=== PATIENT | female | born 1940 | race Caucasian/White ===

== ENCOUNTER → 2018-01-30 14:46 | Outpatient (CLI) | payer OTHER, SELFPAY ==
--- NOTE | 2018-01-30 14:50 | DI.RAD.S_ITS ---
PROCEDURE: XR HAND LT MIN 3V INDICATIONS: arthralgia TECHNIQUE: 3 views of the hand(s) acquired. COMPARISON: [facility], , HAND 3V LEFT, 05/12/2008, 10:20. FINDINGS: Bones: No fractures or dislocations. Subchondral cysts involve the base of the first metacarpals. Carpal bones are normally aligned. No suspicious bony lesions. Trapezium has been surgically resected. Multilevel joint narrowing present with parity or osteophyte formation, most notably involving the second third MCP joints where there is mild soft tissue swelling. No definitive bony erosions. Soft tissues: Chondrocalcinosis. IMPRESSION: Multilevel joint degeneration, most notably involving the second and third MCP joints where there is adjacent soft tissue swelling. Prior resection of the trapezium. Chondrocalcinosis. Differential diagnosis includes but is not limited to hemochromatosis, hyperparathyroidism and CPPD. Dictated by: Prabhakar SEALS Interpreted: Olinda Ch MD on 01/30/2018 at 15:08 Approved by: Olinda Ch M.D. on 01/30/2018 at 16:55
== END ==
PROVIDERS: Family Provider Internal Medicine; PCP Internal Medicine; Visit Provider Internal Medicine
DX: M19.042 Primary osteoarthritis, left hand (principal); M11.242 Other chondrocalcinosis, left hand; M25.542 Pain in joints of left hand
CPT/HCPCS: 73130

== ENCOUNTER → 2018-02-28 14:08 | Outpatient (CLI) | payer OTHER, SELFPAY ==
[2018-02-28 15:06] LABS: Alanine Aminotransferase 25 IU/L (9-52); Albumin 3.9 g/dL (3.5-5.0); Albumin Globulin Ratio 1.3 (1.0-2.8); Alkaline Phosphatase 84 U/L (38-126); Aspartate Aminotransferase 23 IU/L (14-36); BUN Creatinine Ratio 24.5 (6-22); Bilirubin Total 0.5 mg/dL (0.2-1.3); Blood Urea Nitrogen 27 mg/dL (7-17); C-Reactive Protein Quant 7.1 mg/dL (<1.0); Calcium 9.2 mg/dL (8.4-10.2); Carbon Dioxide 28 mmol/L (22-32); Chloride 100 mmol/L (98-107); Estimated Glomerular Filt Rate 47.9 mL/min (>60); Globulin 3.1 g/dL (1.7-4.1); Glucose 116 mg/dL (80-110); HEMOLYSIS < 15 (0-50); Potassium 3.1 mmol/L (3.4-5.1); Sodium 142 mmol/L (137-145)
[2018-02-28 15:12] LABS: Erythrocyte Sedimentation Rate 60 MM/HR (0-20)
== END ==
PROVIDERS: PCP Internal Medicine; Visit Provider Internal Medicine
DX: R53.1 Weakness (principal)
CPT/HCPCS: 36415; 80053; 85651; 86140

== ENCOUNTER → 2018-07-18 14:08 | Outpatient (CLI) | payer OTHER, SELFPAY ==
[2018-07-18 14:35] LABS: Add Manual Diff / Slide Review NO; Eosinophils Percent Auto 4.5 % (2-4); Hematocrit 36.6 % (36-46); Hemoglobin 12.3 g/dL (12.0-16.0); Lymphocytes Percent Auto 22.5 % (25-40); Mean Corpuscular HGB Conc 33.7 % (30-36); Mean Corpuscular Hemoglobin 31.5 PG (26-34); Mean Corpuscular Volume 93.5 fL (80-100); Monocytes Percent Auto 7.6 % (3-14); Neutrophils Absolute Auto 4500 /uL (3000-5900); Neutrophils Percent Auto 64.4 % (50-75); Platelet Count 273 X10^3/uL (150-400); Red Blood Cell Count 3.91 X10^6/uL (4.0-5.2); Red Cell Distribution Width 13.8 % (11.6-14.8); White Blood Cell Count 6.9 X10^3/uL (4.5-11.0)
[2018-07-18 14:58] LABS: Alanine Aminotransferase 26 IU/L (9-52); Albumin 4.2 g/dL (3.5-5.0); Albumin Globulin Ratio 1.2 (1.0-2.8); Alkaline Phosphatase 91 U/L (38-126); Aspartate Aminotransferase 29 IU/L (14-36); BUN Creatinine Ratio 26.7 (6-22); Bilirubin Total 0.4 mg/dL (0.2-1.3); Blood Urea Nitrogen 24 mg/dL (7-17); Calcium 9.2 mg/dL (8.4-10.2); Carbon Dioxide 27 mmol/L (22-32); Estimated Glomerular Filt Rate > 60.0 mL/min (>60); Globulin 3.4 g/dL (1.7-4.1); Glucose 95 mg/dL (80-110); HEMOLYSIS < 15 (0-50); Total Protein 7.6 g/dL (6.3-8.2)
[2018-07-18 15:21] LABS: Chloride 105 mmol/L (98-107); Potassium 4.5 mmol/L (3.4-5.1); Sodium 142 mmol/L (137-145)
[2018-07-18 15:46] LABS: TSH w/ Reflex to FT4 1.77 uIU/mL (0.47-4.68)
== END ==
PROVIDERS: PCP Internal Medicine; Visit Provider Internal Medicine
DX: I50.9 Heart failure, unspecified (principal); I51.9 Heart disease, unspecified; I10 Essential (primary) hypertension
CPT/HCPCS: 36415; 80053; 83880; 84443; 85025

== ENCOUNTER → 2018-07-28 13:12 | Outpatient (CLI) | payer OTHER, SELFPAY ==
--- NOTE | 2018-07-28 14:53 | PM.TREADMILL ---
Cardiac Stress Test Report Referral & Results Date Patient Seen: 07/28/18 Requesting provider: Hugo Merchant Indication: New congestive heart failure Rest ECG: Unremarkable Procedure Note: After both written and verbal informed consent the patient had an IV started by the diagnostic imaging RN and then was hooked up to the treadmill monitoring system. The patient was placed on the treadmill at 1 mile an hour with no elevation and was then injected with the Adri scan material. The Cardiolite was then immediately administered. The patient spent an additional 2-3 minutes on the treadmill before being returned to the [facility] in the supine position. The patient had a normal response to all infused materials. Patient had perceived dyspnea with minimal activity although was not visibly short of breath Impression: Normal response to materials. Perfusion imaging will be reported separately Please note: Actual ECG tracings can be found in the PACS system.
--- NOTE | 2018-07-29 14:57 | DI.NM.S_ITS ---
DATE OF SERVICE: 07/28/2018 PROCEDURE: Pharmacological perfusion study. INDICATIONS: Hypertension, shortness of breath, CHF.. RADIOPHARMACEUTICAL: 24.8 mCi technetium-99m Myoview IV was injected at stress and 25.7 mCi technetium-99m Myoview IV was injected at rest. CARDIAC STRESS: Patient underwent IV Lexiscan perfusion study under the supervision of an attending staff as per standard IV Lexiscan protocol. She remained hemodynamically stable. Baseline EKG revealed sinus rhythm. Stress EKG did not reveal any obvious inducible ischemic changes. No significant arrhythmias. No significant symptoms were reported. RAW DATA: There was increased breast shadow . GATED STUDY: Resting LV ejection fraction 72%. Stress LV ejection fraction 78%. No obvious wall motion abnormalities. There is no transient ischemic dilatation. TID ratio is 0.83, which is within normal limits. Resting LV end- diastolic volume is 89 mL. Lung/heart ratio is 0.14, which is within normal limits. MYOCARDIAL PERFUSION SCAN: In resting supine images, there was minimally decreased perfusion of anterior wall. However, stress supine and stress prone images revealed normal myocardial perfusion. I don't see any convincing ischemia infarction. CONCLUSION: I will call this study normal myocardial perfusion study without any convincing ischemia infarction. Left ventricular (LV) function is preserved. Patient had perfusion study in 06/2010, that time also she had similar findings. As far as perfusion scan is concerned, this is a low-risk myocardial perfusion scan. Marylou Reyes - Jair/ doc#: [id number]/job#: [id number] dd: 07/29/2018 12:37:00 dt: 07/29/2018 14:48:00 DICTATING MD/COPIES TO: Deidra Gonzalez MD COPIES MNE: CORNELL
== END ==
PROVIDERS: Family Provider Internal Medicine; PCP Internal Medicine; Visit Provider Internal Medicine
DX: I11.0 Hypertensive heart disease with heart failure (principal); I50.9 Heart failure, unspecified; R06.02 Shortness of breath
CPT/HCPCS: 78452; 93016; 93017; 93018; A9502

== ENCOUNTER → 2018-08-19 13:29 | Outpatient (CLI) | payer OTHER, SELFPAY ==
[2018-08-19 15:04] LABS: Alanine Aminotransferase 39 IU/L (9-52); Albumin 4.3 g/dL (3.5-5.0); Albumin Globulin Ratio 1.4 (1.0-2.8); Alkaline Phosphatase 97 U/L (38-126); Aspartate Aminotransferase 34 IU/L (14-36); Bilirubin Total 0.7 mg/dL (0.2-1.3); Blood Urea Nitrogen 23 mg/dL (7-17); Calcium 9.8 mg/dL (8.4-10.2); Carbon Dioxide 30 mmol/L (22-32); Chloride 100 mmol/L (98-107); Estimated Glomerular Filt Rate 53.3 mL/min (>60); Glucose 83 mg/dL (80-110); HEMOLYSIS < 15 (0-50); Potassium 4.6 mmol/L (3.4-5.1); Sodium 142 mmol/L (137-145); Total Protein 7.3 g/dL (6.3-8.2)
== END ==
PROVIDERS: Family Provider Internal Medicine; PCP Internal Medicine; Visit Provider Internal Medicine
DX: I50.9 Heart failure, unspecified (principal); I51.9 Heart disease, unspecified
CPT/HCPCS: 36415; 80053

== ENCOUNTER → 2018-10-27 09:50 | Outpatient (CLI) | payer OTHER, SELFPAY ==
[2018-10-27 10:31] LABS: B Type Natriuretic Peptide 415 (<100)
[2018-10-27 10:32] LABS: BUN Creatinine Ratio 19.2 (6-22); Blood Urea Nitrogen 23 mg/dL (7-17); Calcium 9.4 mg/dL (8.4-10.2); Carbon Dioxide 30 mmol/L (22-32); Chloride 103 mmol/L (98-107); Estimated Glomerular Filt Rate 43.2 mL/min (>60); Glucose 85 mg/dL (80-110); HEMOLYSIS < 15 (0-50); Potassium 4.5 mmol/L (3.4-5.1); Sodium 140 mmol/L (137-145)
== END ==
PROVIDERS: Family Provider Internal Medicine; PCP Internal Medicine; Visit Provider Internal Medicine
DX: I50.9 Heart failure, unspecified (principal); E51.9 Thiamine deficiency, unspecified
CPT/HCPCS: 36415; 80048; 83880

== ENCOUNTER → 2018-10-28 14:23 | Outpatient (CLI) | payer OTHER, SELFPAY ==
--- NOTE | 2018-10-28 14:25 | DI.MG.S_ITS ---
BILATERAL DIGITAL DIAGNOSTIC MAMMOGRAM 3D/2D: 10/28/2018 CLINICAL: Right breast mass. Comparison is made to exams dated: 12/11/2017 mammogram, 12/10/2016 mammogram, and 12/02/2015 mammogram - [facility]. There are scattered fibroglandular elements in both breasts. There is a 2 cm irregular asymmetry in the right breast at 12 o'clock posterior depth. This correlates as palpated. There is architectural distortion associated with the asymmetry. No other significant masses, calcifications, or other findings are seen in either breast. IMPRESSION: INCOMPLETE: NEEDS ADDITIONAL IMAGING EVALUATION The 2 cm irregular asymmetry in the right breast is suspicious of malignancy. An ultrasound is recommended which was performed immediately following this exam. Please refer to that report for further details. This exam was interpreted at Station ID: [id number]. NOTE: For mammograms, a report in lay terms will be sent to the patient. Approximately 15% of breast malignancies will not be visualized mammographically. In the management of a palpable breast mass, a negative mammogram must not discourage biopsy of a clinically suspicious lesion. Electronically Signed By: Nadia spencer/:10/28/2018 16:14:27 ACR BI-RADS Category 0: Incomplete [id number]
--- NOTE | 2018-10-28 14:25 | DI.US.S_ITS ---
LIMITED ULTRASOUND OF RIGHT BREAST AND AXILLA: 10/28/2018 CLINICAL: Right breast lump. Comparison is made to exams dated: 10/28/2018 mammogram, 12/11/2017 mammogram, 12/10/2016 mammogram, 12/02/2015 mammogram, and 11/30/2014 mammogram - [facility]. Ultrasound of the right breast 12 o'clock, and axilla regions was performed. There is a 6 mm round lymph node in the right axillary tail. There also is 1.2 cm x 1.2 cm x 1.2 cm irregular mass with an indistinct margin in the right breast at 12 o'clock posterior depth 8 cm from the nipple. This irregular mass is hypoechoic with posterior acoustic shadowing. There is associated architectural distortion. Color flow imaging demonstrates that there is increased vascularity. IMPRESSION: SUSPICIOUS OF MALIGNANCY The 6 mm round lymph node in the right axillary tail is at a low suspicion for malignancy. The 1.2 cm x 1.2 cm x 1.2 cm irregular mass in the right breast at 12 o'clock posterior depth is suspicious of malignancy. An ultrasound guided biopsy is recommended. Findings and recommendations were discussed with the patient by Dr Toussaint. This exam was interpreted at Station ID: [id number]. Electronically Signed By: Nadia spencer/:10/28/2018 16:20:11 letter sent: Biopsy Required Ultrasound BI-RADS: 4a Suspicious abnormality - low suspicion for malignancy
== END ==
PROVIDERS: PCP Internal Medicine; Visit Provider Internal Medicine
DX: R92.8 Other abnormal and inconclusive findings on diagnostic imaging of breast (principal); N63.10 Unspecified lump in the right breast, unspecified quadrant
CPT/HCPCS: 76642; 77066; G0279

== ENCOUNTER → 2018-11-14 08:07 | Outpatient (CLI) | payer OTHER, SELFPAY ==
--- NOTE | 2018-11-14 | DI.MG.S_ITS ---
UNILATERAL RIGHT DIGITAL DIAGNOSTIC MAMMOGRAM POST-NEEDLE BIOPSY: 11/14/2018 CLINICAL: Right Breast Mass. Comparison is made to exams dated: 10/28/2018 mammogram, 12/11/2017 mammogram, and 12/10/2016 mammogram - [facility]. There are scattered fibroglandular elements in right breast. There is a marker clip in the appropriate position in the right breast at 12 o'clock posterior depth. This marker clip placement is at the biopsy site. IMPRESSION: POST PROCEDURE MAMMOGRAM FOR MARKER PLACEMENT There was a successful marker clip placement in the right breast posterior depth. This exam was interpreted at Station ID: [id number]. NOTE: For mammograms, a report in lay terms will be sent to the patient. Approximately 15% of breast malignancies will not be visualized mammographically. In the management of a palpable breast mass, a negative mammogram must not discourage biopsy of a clinically suspicious lesion. Electronically Signed By: Rosas briones/:11/14/2018 13:03:35 ACR BI-RADS Category Post-procedure mammogram for marker placement
--- NOTE | 2018-11-14 08:13 | DI.US.S_ITS ---
ULTRASOUND GUIDED BIOPSY RIGHT BREAST USING VACUUM DEVICE WITH MARKING DEVICE INSERTED: 11/14/2018 CLINICAL: Right breast mass. PATIENT CONSENT: Risks (minor bleeding, infection, vasovagal reaction and repeat procedure), benefits and alternatives were explained to the patient and written informed consent was obtained. Correlation is made to exams dated: 11/14/2018 mammogram, 10/28/2018 ultrasound, 10/28/2018 mammogram, 12/11/2017 mammogram, 12/10/2016 mammogram, and 12/02/2015 mammogram - [facility]. An ultrasound guided biopsy using real-time ultrasound was performed for the irregular shaped mass located in the right breast at 12 o'clock posterior depth. The skin was prepped in the usual manner. Local anesthetic was administered to the access site. A small incision was made in the breast. The abnormality was approached from the lateral aspect. A biopsy needle was placed adjacent to the abnormality under ultrasound guidance. Once the needle was documented to be in the correct location, six specimens were obtained using the Mammotome biopsy system. A clip was inserted into the biopsy cavity. The specimens were sent to the laboratory for pathological analysis. IMPRESSION: ULTRASOUND GUIDED BIOPSY MALIGNANT Ultrasound guided biopsy of the mass in the right breast at 12 o'clock posterior depth was successful. Final pathology results per pathologist Dr. Maynor Hernandez identified malignant infiltrating ductal carcinoma. Pathology results are concordant with imaging findings. Oncology and surgical consults are recommended for further evaluation and management. These results will be communicated to the patient's referring provider. This exam was interpreted at Station ID: [id number]. Rosas briones,ecl/:11/21/2018 10:54:02
--- NOTE | 2018-11-14 10:21 | PATH_ITS ---
[facility] Accession Number: [id number] . 01 Material submitted: . RIGHT BREAST . 01 Clinical history: . 12:00 8CM FN . 02 Diagnosis: Needle Core Biopsies, Right Breast, 12 o'clock, 8 cm From The Nipple: Infiltrating ductal carcinoma with the following features (ductal differentiation confirmed by immunohistochemistry with tumor cells being weakly positive for e-cadherin). 1. Tumor size: Longest single length of tumor measured at 1.0 cm with multiple cores involved with neoplasm. 2. Tumor grade: Grade 2 of 3 (score 6 of 9). Nuclear grade: Intermediate (score 2 of 3). Mitotic rate: Low (score 1 of 3). Glandular (tubular) differentiation: Low (score 3 of 3). 3. In situ carcinoma: Not identified. 4. Vascular/lymphatic invasion: Not identified. 5. Receptor studies: Estrogen receptor: Strongly positive with 90% of the cells strong staining by immunohistochemistry. Progesterone receptor: Positive with 50% of the cells strong staining by immunohistochemistry. HER-2/tello: Inconclusive (2+ staining). FISH testing pending, to be reported by addendum. . . . . COMMENT: The results of this evaluation are telephone to the office of Dr. Roger Merchant by Dr. Willie Izaguirre at 3 p.m. on 11/17/2018. . Case reviewed by Drs. Willie Izaguirre and Kristina Kurtz, both of whom agree with the diagnosis. MRV/11/18/2018 . 02 Electronically signed: . Maynor Hernandez MD, Pathologist NPI- [id number] . 01 Gross description: . Received in formalin and labeled right breast 12 o'clock 8 cm FN; per requisition, collected on 11/14/2018; per bottle, collected at 10:06. Total fixation time: 24-48 hours. Sample received with plastic filter. Sample is loose in container. Sample consists of multiple fragments of friable, landa-yellow soft tissue measuring 2.2 x 1.0 x 0.4 cm in aggregate. All tissue is entirely submitted in one cassette. (MR:[id number]) /FRR . 02 Pathologist provided ICD-10: C50.111 . 02 CPT . 187993, [id number], 807178, [id number], [id number] Performed at: 01 [facility] [address] [place] [address], [place], [place] [id number] MD Herminio Shabazz MD Phone: [phone] Performed at: 02 [facility] [place] [address] [address] [place] [id number] MD Kristina Kurtz MD Phone: [phone]
== END ==
PROVIDERS: PCP Internal Medicine; Visit Provider Internal Medicine
DX: C50.811 Malignant neoplasm of overlapping sites of right female breast (principal); Z17.0 Estrogen receptor positive status [ER+]
CPT/HCPCS: 19083; 77065

== ENCOUNTER → 2018-11-26 09:51 | Outpatient (CLI) | payer OTHER, SELFPAY ==
--- NOTE | 2018-11-26 09:54 | DI.RAD.S_ITS ---
PROCEDURE: XR CHEST 2V INDICATIONS: breast cancer, [place] TECHNIQUE: 2 views of the chest were acquired. COMPARISON: [facility], CHEST 2 VIEW, 07/19/2015, 14:59. [facility], CHEST 2 VIEW, 05/19/2010, 8:12. FINDINGS: Surgical changes and devices: None. Lungs and pleura: Lungs are clear. No pleural effusions or pneumothorax. Mediastinum: Mediastinal contours are normal. Heart size is normal. Bones and chest wall: No suspicious bony abnormalities. Soft tissues appear unremarkable. IMPRESSION: Normal for age, source of current dyspnea on exertion 77symptoms is not seen. Dictated by: Eric Rao M.D. on 11/26/2018 at 10:54 Approved by: Eric Rao M.D. on 11/26/2018 at 10:56
[2018-11-26 10:14] LABS: Add Manual Diff / Slide Review NO; Basophils Absolute Auto 100 /uL (0-100); Basophils Percent Auto 0.7 % (0-2); Eosinophils Absolute Auto 200 /uL (0-450); Eosinophils Percent Auto 2.7 % (2-4); Hematocrit 35.5 % (36-46); Hemoglobin 12.2 g/dL (12.0-16.0); Lymphocytes Absolute Auto 1600 /uL (1100-4500); Lymphocytes Percent Auto 19.7 % (25-40); Mean Corpuscular HGB Conc 34.4 % (30-36); Mean Corpuscular Hemoglobin 32.3 PG (26-34); Mean Corpuscular Volume 93.8 fL (80-100); Monocytes Absolute Auto 400 /uL (0-900); Monocytes Percent Auto 4.8 % (3-14); Neutrophils Absolute Auto 5800 /uL (1500-7000); Neutrophils Percent Auto 72.1 % (50-75); Platelet Count 252 X10^3/uL (150-400); Red Blood Cell Count 3.78 X10^6/uL (4.0-5.2); Red Cell Distribution Width 13.5 % (11.6-14.8)
[2018-11-26 12:42] LABS: Alanine Aminotransferase 44 IU/L (9-52); Albumin 4.4 g/dL (3.5-5.0); Albumin Globulin Ratio 1.5 (1.0-2.8); Alkaline Phosphatase 85 U/L (38-126); Aspartate Aminotransferase 36 IU/L (14-36); Bilirubin Total 0.5 mg/dL (0.2-1.3); Blood Urea Nitrogen 24 mg/dL (7-17); Calcium 9.7 mg/dL (8.4-10.2); Carbon Dioxide 30 mmol/L (22-32); Chloride 101 mmol/L (98-107); Estimated Glomerular Filt Rate 43.2 mL/min (>60); Glucose 90 mg/dL (80-110); HEMOLYSIS < 15 (0-50); Potassium 4.5 mmol/L (3.4-5.1); Sodium 141 mmol/L (137-145); Total Protein 7.4 g/dL (6.3-8.2)
== END ==
PROVIDERS: PCP Internal Medicine
DX: C50.919 Malignant neoplasm of unspecified site of unspecified female breast (principal)
CPT/HCPCS: 36415; 71046; 80053; 85025

== ENCOUNTER → 2019-01-02 12:33 | Outpatient (CLI) | payer OTHER, SELFPAY | PROVIDERS: PCP Internal Medicine | DX: C50.919 Malignant neoplasm of unspecified site of unspecified female breast (principal); Z78.0 Asymptomatic menopausal state; Z79.811 Long term (current) use of aromatase inhibitors; Z90.722 Acquired absence of ovaries, bilateral | CPT/HCPCS: 77080 ==

== ENCOUNTER → 2019-04-07 08:08 | Outpatient (CLI) | payer OTHER, SELFPAY ==
[2019-04-07 09:05] LABS: Add Manual Diff / Slide Review NO; Basophils Absolute Auto 0 /uL (0-100); Basophils Percent Auto 0.6 % (0-2); Eosinophils Absolute Auto 300 /uL (0-450); Eosinophils Percent Auto 3.8 % (2-4); Hematocrit 36.1 % (36-46); Hemoglobin 12.2 g/dL (12.0-16.0); Lymphocytes Absolute Auto 900 /uL (1100-4500); Lymphocytes Percent Auto 14.2 % (25-40); Mean Corpuscular HGB Conc 33.9 % (30-36); Mean Corpuscular Hemoglobin 32.4 PG (26-34); Mean Corpuscular Volume 95.6 fL (80-100); Monocytes Absolute Auto 400 /uL (0-900); Monocytes Percent Auto 6.8 % (3-14); Neutrophils Absolute Auto 4900 /uL (1500-7000); Neutrophils Percent Auto 74.6 % (50-75); Platelet Count 245 X10^3/uL (150-400); Red Blood Cell Count 3.78 X10^6/uL (4.0-5.2); Red Cell Distribution Width 13.6 % (11.6-14.8); White Blood Cell Count 6.6 X10^3/uL (4.5-11.0)
[2019-04-07 09:18] LABS: Alanine Aminotransferase 31 IU/L (9-52); Albumin 4.3 g/dL (3.5-5.0); Albumin Globulin Ratio 1.3 (1.0-2.8); Alkaline Phosphatase 96 U/L (38-126); Aspartate Aminotransferase 30 IU/L (14-36); BUN Creatinine Ratio 20.8 (6-22); Bilirubin Total 0.4 mg/dL (0.2-1.3); Blood Urea Nitrogen 27 mg/dL (7-17); Calcium 9.7 mg/dL (8.4-10.2); Carbon Dioxide 29 mmol/L (22-32); Chloride 105 mmol/L (98-107); Cholesterol 214 mg/dL (140-199); Estimated Glomerular Filt Rate 39.4 mL/min (>60); Globulin 3.4 g/dL (1.7-4.1); Glucose 94 mg/dL (80-110); HDL Cholesterol 59 mg/dL (40-60); HEMOLYSIS < 15 (0-50); LDL Cholesterol Calculated 129 mg/dL (<100); Potassium 4.7 mmol/L (3.4-5.1); Sodium 141 mmol/L (137-145); Total Protein 7.7 g/dL (6.3-8.2); Triglycerides 132 mg/dL (35-150)
[2019-04-07 09:25] LABS: B Type Natriuretic Peptide 344 (<100)
== END ==
PROVIDERS: PCP Internal Medicine; Visit Provider Internal Medicine Cardiovascular Disease
DX: R06.09 Other forms of dyspnea (principal); I10 Essential (primary) hypertension
CPT/HCPCS: 36415; 80053; 80061; 83880; 84443; 85025

== ENCOUNTER → 2019-04-16 08:35 | Outpatient (CLI) | payer OTHER, SELFPAY ==
[2019-04-16 10:02] LABS: BUN Creatinine Ratio 14.6 (6-22); Blood Urea Nitrogen 19 mg/dL (7-17); Calcium 9.8 mg/dL (8.4-10.2); Carbon Dioxide 28 mmol/L (22-32); Chloride 107 mmol/L (98-107); Estimated Glomerular Filt Rate 39.4 mL/min (>60); Glucose 81 mg/dL (80-110); HEMOLYSIS < 15 (0-50); Potassium 4.5 mmol/L (3.4-5.1); Sodium 144 mmol/L (137-145)
== END ==
PROVIDERS: PCP Internal Medicine; Visit Provider Internal Medicine Cardiovascular Disease
DX: I10 Essential (primary) hypertension (principal)
CPT/HCPCS: 36415; 80048

== ENCOUNTER → 2019-05-07 08:30 | Outpatient (CLI) | payer OTHER, SELFPAY ==
--- NOTE | 2019-05-15 08:50 | PM.PFT.1 ---
Pulmonary Function Test Referral & Results Date Patient Seen: 05/07/19 Requesting provider: Deidra Gonzalez Results: The spirometry demonstrates an FVC of 2.14 L which is 87% of predicted. The FEV1 was measured at 1.49 L which is 82% of predicted. The FEV1/FVC ratio was 70 which is 94% of predicted. Following the administration of bronchodilator there was no appreciable change. Lung volumes show an SVC of 2.16 L which is 84% of predicted. The diffusing capacity was measured at 13.63 which is 59% of predicted. No hemoglobin value was provided, so no correction for potential anemia could be made, if appropriate. The maximum voluntary ventilation was reduced Interpretation: This study demonstrates mild obstructive lung disease based on slight reduction in FEV1, without evidence of benefit following bronchodilator administration There is much more significant reduction in diffusing capacity suggesting more significant disease at the capillary alveolar level Compared to PFTs performed in August 2011, current spirometry is essentially unchanged. There was no diffusing capacity performed previously for comparison
== END ==
PROVIDERS: PCP Internal Medicine; Visit Provider Internal Medicine Cardiovascular Disease
DX: R06.09 Other forms of dyspnea (principal); J44.9 Chronic obstructive pulmonary disease, unspecified
CPT/HCPCS: 94060; 94726; 94729

== ENCOUNTER → 2019-06-08 10:21 | Outpatient (CLI) | payer OTHER, SELFPAY ==
[2019-06-08 10:53] LABS: BUN Creatinine Ratio 17.5 (6-22); Blood Urea Nitrogen 21 mg/dL (7-17); Calcium 9.4 mg/dL (8.4-10.2); Carbon Dioxide 25 mmol/L (22-32); Chloride 106 mmol/L (98-107); Estimated Glomerular Filt Rate 43.2 mL/min (>60); Glucose 119 mg/dL (80-110); HEMOLYSIS < 15 (0-50); Potassium 4.4 mmol/L (3.4-5.1); Sodium 143 mmol/L (137-145)
== END ==
PROVIDERS: PCP Internal Medicine; Visit Provider Internal Medicine Cardiovascular Disease
DX: I10 Essential (primary) hypertension (principal)
CPT/HCPCS: 36415; 80048

== ENCOUNTER → 2019-08-20 09:25 | Outpatient (CLI) | payer OTHER, SELFPAY | PROVIDERS: PCP Internal Medicine | DX: C50.919 Malignant neoplasm of unspecified site of unspecified female breast (principal) | CPT/HCPCS: 77063; 77067 ==

== ENCOUNTER → 2019-08-24 08:02 | Outpatient (CLI) | payer OTHER, SELFPAY ==
--- NOTE | 2019-08-24 08:03 | DI.MG.S_ITS ---
BILATERAL DIGITAL DIAGNOSTIC MAMMOGRAM 3D/2D: 08/24/2019 CLINICAL: Right breast lump. Comparison is made to exams dated: 11/14/2018 mammogram, 10/28/2018 mammogram, and 12/11/2017 mammogram - [facility]. There are scattered fibroglandular elements in both breasts. There is a 0.6 cm oval low density asymmetry with an indistinct and circumscribed margin in the right breast at 11 o'clock posterior depth. This is not significantly changed and correlates as palpated. No other significant masses, calcifications, or other findings are seen in either breast. IMPRESSION: INCOMPLETE: NEEDS ADDITIONAL IMAGING EVALUATION The 0.6 cm oval low density asymmetry in the right breast resembles a lymph node and is indeterminate. An ultrasound is recommended. This exam was interpreted at Station ID: [id number]. NOTE: For mammograms, a report in lay terms will be sent to the patient. Approximately 15% of breast malignancies will not be visualized mammographically. In the management of a palpable breast mass, a negative mammogram must not discourage biopsy of a clinically suspicious lesion. Electronically Signed By: Herminio la/prudencio:08/24/2019 08:35:32 ACR BI-RADS Category 0: Incomplete [id number]
--- NOTE | 2019-08-24 09:00 | DI.US.S_ITS ---
Patient Name: LUIS ANTONIO BOYLE date: 1940 Sex: F Attending Physician: Mayur Indications: Date: 08/24/2019 09:31 At the request of: GUS ALONSO Procedure: US breast RT limited LIMITED ULTRASOUND OF RIGHT BREAST: 08/24/2019 CLINICAL: Palpable right breast lump. Comparison is made to exam dated: 08/24/2019 [facility]. Color flow and real-time ultrasound of the right breast 9 o'clock region were performed on the areas of interest. There is a 0.5 cm x 0.4 cm x 0.6 cm oval normal lymph node in the right breast at 9 o'clock posterior depth. This oval normal lymph node is of mixed echogenicity with fatty hilum. This correlates as palpated and with mammography findings. Color flow imaging demonstrates that there is no increase in vascularity. IMPRESSION: BENIGN There is no sonographic evidence of malignancy. The 0.5 cm x 0.4 cm x 0.6 cm oval normal lymph node in the right breast is consistent with a lymph node and is benign. This appears unchanged on mammography. A 1 year screening mammogram is recommended. This exam was interpreted at Station ID: [id number]. Electronically Signed By: Herminio Jordan M.D. ddrufus/:08/24/2019 09:42:00 letter sent: Clinical Evaluation Ultrasound BI-RADS: 2 Benign
== END ==
PROVIDERS: PCP Internal Medicine; Visit Provider Internal Medicine
DX: R92.8 Other abnormal and inconclusive findings on diagnostic imaging of breast (principal); N64.89 Other specified disorders of breast
CPT/HCPCS: 76642; 77066; G0279

== ENCOUNTER → 2019-09-30 11:22 | Outpatient (CLI) | payer OTHER, SELFPAY ==
[2019-09-30 11:48] LABS: Add Manual Diff / Slide Review NO; Basophils Absolute Auto 100 /uL (0-100); Basophils Percent Auto 0.7 % (0-2); Eosinophils Absolute Auto 200 /uL (0-450); Eosinophils Percent Auto 2.1 % (2-4); Hematocrit 35.3 % (36-46); Lymphocytes Absolute Auto 1100 /uL (1100-4500); Lymphocytes Percent Auto 14.6 % (25-40); Mean Corpuscular Hemoglobin 32.1 PG (26-34); Mean Corpuscular Volume 94.5 fL (80-100); Monocytes Absolute Auto 400 /uL (0-900); Monocytes Percent Auto 5.7 % (3-14); Neutrophils Absolute Auto 5900 /uL (1500-7000); Neutrophils Percent Auto 76.9 % (50-75); Platelet Count 256 X10^3/uL (150-400); Red Blood Cell Count 3.74 X10^6/uL (4.0-5.2); Red Cell Distribution Width 13.4 % (11.6-14.8); White Blood Cell Count 7.6 X10^3/uL (4.5-11.0)
[2019-09-30 11:59] LABS: Alanine Aminotransferase 24 IU/L (<35); Albumin 4.3 g/dL (3.5-5.0); Albumin Globulin Ratio 1.2 (1.0-2.8); Alkaline Phosphatase 122 U/L (38-126); Aspartate Aminotransferase 30 IU/L (14-36); BUN Creatinine Ratio 14.5 (6-22); Bilirubin Total 0.7 mg/dL (0.2-1.3); Blood Urea Nitrogen 16 mg/dL (7-17); Calcium 9.9 mg/dL (8.4-10.2); Carbon Dioxide 28 mmol/L (22-32); Chloride 102 mmol/L (98-107); Estimated Glomerular Filt Rate 47.7 mL/min (>60); Globulin 3.5 g/dL (1.7-4.1); Glucose 97 mg/dL (80-110); HEMOLYSIS < 15 (0-50); Potassium 4.4 mmol/L (3.4-5.1); Sodium 141 mmol/L (137-145); Total Protein 7.8 g/dL (6.3-8.2)
== END ==
PROVIDERS: PCP Internal Medicine; Visit Provider Internal Medicine Hematology & Oncology
DX: C50.919 Malignant neoplasm of unspecified site of unspecified female breast (principal)
CPT/HCPCS: 36415; 80053; 85025

== ENCOUNTER → 2020-01-29 10:06 | Outpatient (CLI) | payer OTHER, SELFPAY ==
[2020-01-29 11:55] LABS: Cholesterol 156 mg/dL (140-199); HDL Cholesterol 74 mg/dL (40-60); LDL Cholesterol Calculated 63 mg/dL (<100); Triglycerides 93 mg/dL (35-150)
== END ==
PROVIDERS: PCP Internal Medicine; Referring Provider Internal Medicine Cardiovascular Disease; Visit Provider Internal Medicine Cardiovascular Disease
DX: I10 Essential (primary) hypertension (principal)
CPT/HCPCS: 36415; 80061

== ENCOUNTER → 2020-05-19 15:20 | Outpatient (CLI) | payer OTHER, SELFPAY ==
[2020-05-19 16:10] LABS: Add Manual Diff / Slide Review NO; Basophils Absolute Auto 0 /uL (0-100); Basophils Percent Auto 0.4 % (0-2); Eosinophils Absolute Auto 300 /uL (0-450); Eosinophils Percent Auto 2.4 % (2-4); Hematocrit 33.2 % (36-46); Hemoglobin 10.8 g/dL (12.0-16.0); Lymphocytes Absolute Auto 1200 /uL (1100-4500); Lymphocytes Percent Auto 11.2 % (25-40); Mean Corpuscular HGB Conc 32.7 % (30-36); Mean Corpuscular Hemoglobin 30.8 PG (26-34); Mean Corpuscular Volume 94.2 fL (80-100); Monocytes Absolute Auto 700 /uL (0-900); Monocytes Percent Auto 6.8 % (3-14); Neutrophils Absolute Auto 8800 /uL (1500-7000); Neutrophils Percent Auto 79.2 % (50-75); Platelet Count 336 X10^3/uL (150-400); Red Blood Cell Count 3.52 X10^6/uL (4.0-5.2); Red Cell Distribution Width 14.2 % (11.6-14.8); White Blood Cell Count 11.1 X10^3/uL (4.5-11.0)
[2020-05-19 17:07] LABS: Alanine Aminotransferase 19 IU/L (<35); Albumin 3.9 g/dL (3.5-5.0); Albumin Globulin Ratio 1.3 (1.0-2.8); Alkaline Phosphatase 135 U/L (38-126); Aspartate Aminotransferase 25 IU/L (14-36); BUN Creatinine Ratio 13.9 (6-22); Bilirubin Total 0.5 mg/dL (0.2-1.3); Blood Urea Nitrogen 20 mg/dL (7-17); Calcium 9.7 mg/dL (8.4-10.2); Carbon Dioxide 28 mmol/L (22-32); Chloride 102 mmol/L (98-107); Estimated Glomerular Filt Rate 34.9 mL/min (>60); Glucose 112 mg/dL (80-110); HEMOLYSIS < 15 (0-50); Potassium 4.1 mmol/L (3.4-5.1); Sodium 141 mmol/L (137-145); Total Protein 6.9 g/dL (6.3-8.2)
[2020-05-19 17:36] LABS: TSH w/ Reflex to FT4 2.29 uIU/mL (0.47-4.68)
== END ==
PROVIDERS: Family Provider Internal Medicine; PCP Internal Medicine; Referring Provider Internal Medicine; Visit Provider Internal Medicine
DX: C50.911 Malignant neoplasm of unspecified site of right female breast (principal); I10 Essential (primary) hypertension; I50.32 Chronic diastolic (congestive) heart failure
CPT/HCPCS: 36415; 80053; 84443; 85025

== ENCOUNTER 2020-05-24 11:52 | Outpatient (RCR) | payer OTHER, SELFPAY ==
--- NOTE | 2020-05-24 13:24 | PT.OIE ---
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) Measles (Resolved ~1939) Obstructive sleep apnea (Chronic ~10/2018) Pulmonary hypertension (Chronic) Past Surgical History (Last Reviewed 02/10/20 @ 08:57 by MARITA Vasquez) Cataracts, bilateral (Resolved ~2013) History of carpal tunnel repair (Inactive) History of carpal tunnel repair (Inactive) History of knee replacement (Inactive) Status post appendectomy (Inactive) Status post hysterectomy with oophorectomy (Inactive) Status post trigger finger release (Resolved) Visit Care Team Role Provider Type Hugo Merchant MD Family Provider Physician Primary Care Provider Specialty: Internal Medicine Address: [address] [place] [address], [facility] [address], [place], [address] Email: [email or web address] Donald Pruitt PA-C Attending Provider Non-Staff Referring Provider Specialty: Medical Address: [address] [place] [address], [address] Phone: Email: Physical Therapy Initial Evaluation PT-OP-A Visit Information Start: 05/19/20 11:55 Freq: Status: Active Protocol: Document 05/24/20 12:11 MB (Rec: 05/24/20 12:28 MB [id number]) Out-Patient Physical Therapy Visit Information Visit Information Visit Type Initial Evaluation Visit Note [facility], $40 copay is difficult for pt Visit Start Time 12:11 Visit Stop Time 13:01 Total Visit Minutes 50 Visit Number 1 Evaluation Information Evaluation Date 05/24/20 PT-OP-B Current Condition Start: 05/19/20 11:55 Freq: Status: Active Protocol: Document 05/24/20 12:11 MB (Rec: 05/24/20 12:28 MB [id number]) Current Condition History of Current Condition Onset Date L TKR 04/25/2020 Current Complaints She feels she cannot bend her left knee all the way History of Current Condition Pt underwent L TKR on 2019. She had trouble getting into therapy and she does not know if she needs it now. PT in the past s/p right partial knee replacement. Pt lives with her brother and they put in a chair lift. She hasn't been downstairs to her apartment since L TKR. She has a flight of steps to get to the basement. She has one rail on the left to descend. She has 3 steps to enter home. She is driving and walking short distances with cane use in the right hand. Pt reports 1-2/10 pain in her left knee. She has not been bending her left knee much. She reports SOB that decreases her mobility and quality of life. How can I exercise if I get SOB getting in here? Pt reports pulmonary HTN, right breast CA, CHF, depression, SOB. Pt is concerned about copay for PT and does not think that she can make many PT treatments. Prior Treatments and Tests PT for right partial TKR, pt only came for three treatments d/t copay cost Treatment Goals Patient/Caregiver Goals To see how well I'm doing post-op. PT-OP-C Subjective Start: 05/19/20 11:55 Freq: Status: Active Protocol: Document 05/24/20 12:11 MB (Rec: 05/24/20 13:10 MB [id number]) OP-PT Subjective Patient Comments Patient Comments See history of current condition Patient Reported Progress Improving Patient Questionnaires Lower Extremity Functional Scale LEFS Score 38 LEFS Impairment 40 to 59% Impaired (Score 32- 47) PT-OP-D Balance Start: 05/19/20 11:55 Freq: Status: Active Protocol: Document 05/24/20 12:11 MB (Rec: 05/24/20 13:24 MB [id number]) OP-PT Balance Assessment Sitting Balance Static Sitting Balance Ability Good Dynamic Sitting Balance Ability Good Standing Balance Static Standing Balance Ability Good Dynamic Standing Balance Ability Good Balance Tests Romberg Romberg EO and EC at least 30 sec Mcdonnell Fall Scale Copyright Permission PT-OP-G Mobility & Gait Start: 05/19/20 11:55 Freq: Status: Active Protocol: Document 05/24/20 12:11 MB (Rec: 05/24/20 13:24 MB [id number]) OP Gait Assessment Gait Gait Assistance Required: Independent Distance (Feet) 75 Assistive Devices Assistive Device Straight Cane Gait Deviations General Gait Pattern Antalgic,Flexed Trunk,Wide Based Gait Factors Limiting Gait Function Factors Limiting Gait Function Limited Range of Motion,Pain, Poor Balance Comments Gait Comments Cues to carry cane in right hand as pt changes back and forth, cues to move cane with left foot Stair Climbing Evaluation Evaluation Level of Assist On Stairs Standby Assistance Devices Stair Climbing Assistive Devices Right Railing Technique/Endurance Stair Climbing Direction Ascend and Descend Stair Climbing Technique Step Over Step Number of Steps Climbed 4 Stair Climbing Set # Repetitions (reps) 1 Comments Stair Climbing Comments Progressed knee flexion stretch over step, hamstring stretch over step PT-OP-J Posture/Palpation/Skin Start: 05/19/20 11:55 Freq: Status: Active Protocol: Document 05/24/20 12:11 MB (Rec: 05/24/20 13:24 MB [id number]) Posture Evaluation Comments Posture Comments Standing: forward head, decreased cervical lordosis, Dowager's hump, decreased thoracic kyphosis, anterior tilt pelvis, increased lumbar lordosis, protruding left lower ribs/curvature left thoracolumbar spine, right iliac crest higher than the left and right shoulder higher than the left. Skin Assessment Other Assessments Skin Assessment Comments Left TKR incision with healing scab PT-OP-K Range of Motion Start: 05/19/20 11:55 Freq: Status: Active Protocol: Document 05/24/20 12:11 MB (Rec: 05/24/20 13:24 MB [id number]) Knee Goniometric Range of Motion Knee Left Knee ROM WFL No Patient Position Supine Flexion Active (degrees) 83 Extension Active (degrees) 5 Right Knee ROM WFL No Patient Position Supine Flexion Active (degrees) 90 Extension Active (degrees) 0 Knee ROM Limitations Knee ROM Limitations Soft Tissue Tightness, Contracture,Muscle Weakness Comments S/p B knee surgeries PT-OP-M Strength Start: 05/19/20 11:55 Freq: Status: Active Protocol: Document 05/24/20 12:11 MB (Rec: 05/24/20 13:24 MB [id number]) Hip Strength Hip Manual Muscle Testing Left Flexion (L2) 4 Good Abduction 4 Good Right Flexion (L2) 4 Good Abduction 4 Good Knee Strength Knee Manual Muscle Testing Left Flexion (S2) 4 Good Extension (L3) 4 Good Right Flexion (S2) 4 Good Extension (L3) 5 Normal Ankle/Foot Strength Ankle and Foot Manual Muscle Testing Left Dorsiflexion (L4) 5 Normal Right Dorsiflexion (L4) 5 Normal Toe Strength Toe Manual Muscle Testing Left Great Toe Extension 5 Normal Right Great Toe Extension 5 Normal PT-OP-Q Treatments Start: 05/19/20 11:55 Freq: Status: Active Protocol: Document 05/24/20 12:11 MB (Rec: 05/24/20 13:08 MB [id number]) Therapeutic Exercises Supine Exercises SLR Side bilateral Reps/Minutes 2 reps B Comments 5 count up, 5 count down Keyon stretch Side bilateral Reps/Minutes 20 sec Comments Core engaged, gentle heel slide back towards buttocks HS Side bilateral Reps/Minutes 3 reps Comments Cues to perform in bed daily Sitting Exercises Hamstring stretch with AP Side left Reps/Minutes 1 rep, 10 AP Comments Left leg out in front, heel on floor HS in sitting Side left Reps/Minutes 2 reps on left leg Comments Heel down, weight over knee Standing Exercises Knee flexion stretch over step Side left Equipment Used Hold right rail with both hands Reps/Minutes 2 reps, 20 sec hold Comments Progress to knee extensor stretch with foot on step, then reciprocal gait PT-OP-T Assessment and Plan Start: 05/19/20 11:55 Freq: Status: Active Protocol: Document 05/24/20 12:11 MB (Rec: 05/24/20 13:24 MB [id number]) Physical Therapy Assessment Rehab Potential Rehabilitation Potential Fair Evaluation Complexity Number of Personal Factors/Comorbidities 3 or More Number of Body Systems Impaired 1-2 Clinical Presentation at Evaluation Evolving Impairments Impairments Activity Tolerance,Balance, Functional Activities, Functional Mobility,Gait, Integument,Pain,Posture,ROM, Soft Tissue Mobility,Strength Other Impairments Personal factors: lives in basement apartment, may need to move to take care of family , $40 copay is a deterrent to PT. Body systems affected: cardiopulmonary and musculoskeletal. Her clinical presentation is evolving given reports of SOB with all activity. Goals 3 Slip Laster Goal (LTG) Pt will perform reciprocal gait for both sets of gym steps with one rail to allow improved mobility in her house by 07/02/2020. LTG Duration 5 weeks 2 Slip Laster Goal (LTG) Pt will perform progressive HEP with handouts including ROM, strengthening, flexibility and balance exercises to improve I by . LTG Duration 5 weeks 1 Slip Laster Goal (LTG) Pt will present with improved B knee flexion to at least 100 deg to assist with sit to stands by 07/02/2020. LTG Duration 5 weeks Assessment Summary Assessment Pt is an 79 y/o female presenting with decrease B knee ROM, strength, gait and stair mobility s/p recent L TKR and history of right partial knee replacement. Pt states that her high copay is a burden and that she will only be able to attend a few PT treatments. This occurred last time she had knee surgery as well. She lives in a basement apartment and has not yet returned to it since her surgery in April. Her brother put in a stair lift but she has not yet used it. There are stairs to enter the home. She is interested in PT for a few treatments to improve range, strength and gait. Pt will benefit from PT for these as well as for balance training to help decrease fall risk. Barriers include cardiopulmonary status, reduced PT treatment visits, increased body mass and pt with both knees with limited ROM. Physical Therapy Plan Frequency and Duration Frequency of Treatment 1x/Week Duration of Treatment 5 weeks Plan of Care Start Date 05/24/20 Plan of Care End Date 07/01/20 Therapeutic Interventions Therapeutic Interventions Aquatic Therapy,Balance Training,Canalithic Repositioning,Gait Training, Home Exercise Program,Manual Therapy,Neuromuscular Re- education,Patient/Caregiver Education,Self-Care/Home Management,Soft Tissue Mobilization,Taping, Therapeutic Activities, Therapeutic Exercises Modalities Cold Pack/Ice Massage,Electric Stimulation,Hot Packs, Ultrasound Next Visit Focus/Plan Next Note Type Treatment Note Next Visit Plan Keyon martínez for HEP, consider mini wall squat and other hip strengthening exercises as well as a balance exercise for home.
--- NOTE | 2020-05-24 13:25 | PT.OPPOC ---
Physical, Occupational & Speech Therapy At [facility] Current Diagnoses Unilateral primary osteoarthritis, left knee (05/24/20) Visit Care Team Role Provider Type Hugo Merchant MD Family Provider Physician Primary Care Provider Specialty: Internal Medicine Address: [address] [place] [address], [address], [address] Email: [email or web address] Donald Pruitt PA-C Attending Provider Non-Staff Referring Provider Specialty: Medical Address: [address] [facility], [place], [address] Phone: Email: Plan Of Care PT-OP-T Assessment and Plan Start: 05/19/20 11:55 Freq: Status: Active Protocol: Document 05/24/20 12:11 MB (Rec: 05/24/20 13:24 MB [id number]) Physical Therapy Assessment Rehab Potential Rehabilitation Potential Fair Evaluation Complexity Number of Personal Factors/Comorbidities 3 or More Number of Body Systems Impaired 1-2 Clinical Presentation at Evaluation Evolving Impairments Impairments Activity Tolerance,Balance, Functional Activities, Functional Mobility,Gait, Integument,Pain,Posture,ROM, Soft Tissue Mobility,Strength Other Impairments Personal factors: lives in basement apartment, may need to move to take care of family , $40 copay is a deterrent to PT. Body systems affected: cardiopulmonary and musculoskeletal. Her clinical presentation is evolving given reports of SOB with all activity. Goals 3 Machine Rug Cleaner Goal (LTG) Pt will perform reciprocal gait for both sets of gym steps with one rail to allow improved mobility in her house by 07/02/2020. LTG Duration 5 weeks 2 Senior Care Goal (LTG) Pt will perform progressive HEP with handouts including ROM, strengthening, flexibility and balance exercises to improve I by . LTG Duration 5 weeks 1 Machine Rug Cleaner Goal (LTG) Pt will present with improved B knee flexion to at least 100 deg to assist with sit to stands by 07/02/2020. LTG Duration 5 weeks Assessment Summary Assessment Pt is an 79 y/o female presenting with decrease B knee ROM, strength, gait and stair mobility s/p recent L TKR and history of right partial knee replacement. Pt states that her high copay is a burden and that she will only be able to attend a few PT treatments. This occurred last time she had knee surgery as well. She lives in a basement apartment and has not yet returned to it since her surgery in April. Her brother put in a stair lift but she has not yet used it. There are stairs to enter the home. She is interested in PT for a few treatments to improve range, strength and gait. Pt will benefit from PT for these as well as for balance training to help decrease fall risk. Barriers include cardiopulmonary status, reduced PT treatment visits, increased body mass and pt with both knees with limited ROM. Physical Therapy Plan Frequency and Duration Frequency of Treatment 1x/Week Duration of Treatment 5 weeks Plan of Care Start Date 05/24/20 Plan of Care End Date 07/01/20 Therapeutic Interventions Therapeutic Interventions Aquatic Therapy,Balance Training,Canalithic Repositioning,Gait Training, Home Exercise Program,Manual Therapy,Neuromuscular Re- education,Patient/Caregiver Education,Self-Care/Home Management,Soft Tissue Mobilization,Taping, Therapeutic Activities, Therapeutic Exercises Modalities Cold Pack/Ice Massage,Electric Stimulation,Hot Packs, Ultrasound Next Visit Focus/Plan Next Note Type Treatment Note Next Visit Plan Keyon stretch for HEP, consider mini wall squat and other hip strengthening exercises as well as a balance exercise for home. Plan of Care Dates Plan of Care Start Date 05/24/20 Plan of Care End Date 07/01/20 Electronically Signed by: Olivia Dee, PT 05/24/20 [id number] Please Sign and Return: I have reviewed this Plan of Care and certify that the skilled therapy services above are required to meet the patient?s needs. Physician Signature Date Printed Name and Credentials Clinical Instructor Signature Printed Name and Credentials
--- NOTE | 2020-06-07 14:02 | PT.OPDS ---
Current Diagnoses Unilateral primary osteoarthritis, left knee (05/24/20) Visit Care Team Role Provider Type Hugo Merchant MD Family Provider Physician Primary Care Provider Specialty: Internal Medicine Address: [address] [place] [address], [address], [address] Email: [email or web address] Donald Pruitt PA-C Attending Provider Non-Staff Referring Provider Specialty: Medical Address: [address] [place] [address], [address] Phone: Email: Visit Number Visit Number 1 Discharge Summary PT-OP-B Current Condition Start: 05/19/20 11:55 Freq: Status: Active Protocol: Document 05/24/20 12:11 MB (Rec: 05/24/20 12:28 MB [id number]) Current Condition History of Current Condition Onset Date L TKR 04/25/2020 Current Complaints She feels she cannot bend her left knee all the way History of Current Condition Pt underwent L TKR on 2019. She had trouble getting into therapy and she does not know if she needs it now. PT in the past s/p right partial knee replacement. Pt lives with her brother and they put in a chair lift. She hasn't been downstairs to her apartment since L TKR. She has a flight of steps to get to the basement. She has one rail on the left to descend. She has 3 steps to enter home. She is driving and walking short distances with cane use in the right hand. Pt reports 1-2/10 pain in her left knee. She has not been bending her left knee much. She reports SOB that decreases her mobility and quality of life. How can I exercise if I get SOB getting in here? Pt reports pulmonary HTN, right breast CA, CHF, depression, SOB. Pt is concerned about copay for PT and does not think that she can make many PT treatments. Prior Treatments and Tests PT for right partial TKR, pt only came for three treatments d/t copay cost Treatment Goals Patient/Caregiver Goals To see how well I'm doing post-op. PT-OP-C Subjective Start: 05/19/20 11:55 Freq: Status: Active Protocol: Document 05/24/20 12:11 MB (Rec: 05/24/20 13:10 MB [id number]) OP-PT Subjective Patient Comments Patient Comments See history of current condition Patient Reported Progress Improving Patient Questionnaires Lower Extremity Functional Scale LEFS Score 38 LEFS Impairment 40 to 59% Impaired (Score 32- 47) PT-OP-D Balance Start: 05/19/20 11:55 Freq: Status: Active Protocol: Document 05/24/20 12:11 MB (Rec: 05/24/20 13:24 MB [id number]) OP-PT Balance Assessment Sitting Balance Static Sitting Balance Ability Good Dynamic Sitting Balance Ability Good Standing Balance Static Standing Balance Ability Good Dynamic Standing Balance Ability Good Balance Tests Romberg Romberg EO and EC at least 30 sec Mcdonnell Fall Scale Copyright Permission PT-OP-G Mobility & Gait Start: 05/19/20 11:55 Freq: Status: Active Protocol: Document 05/24/20 12:11 MB (Rec: 05/24/20 13:24 MB [id number]) OP Gait Assessment Gait Gait Assistance Required: Independent Distance (Feet) 75 Assistive Devices Assistive Device Straight Cane Gait Deviations General Gait Pattern Antalgic,Flexed Trunk,Wide Based Gait Factors Limiting Gait Function Factors Limiting Gait Function Limited Range of Motion,Pain, Poor Balance Comments Gait Comments Cues to carry cane in right hand as pt changes back and forth, cues to move cane with left foot Stair Climbing Evaluation Evaluation Level of Assist On Stairs Standby Assistance Devices Stair Climbing Assistive Devices Right Railing Technique/Endurance Stair Climbing Direction Ascend and Descend Stair Climbing Technique Step Over Step Number of Steps Climbed 4 Stair Climbing Set # Repetitions (reps) 1 Comments Stair Climbing Comments Progressed knee flexion stretch over step, hamstring stretch over step PT-OP-J Posture/Palpation/Skin Start: 05/19/20 11:55 Freq: Status: Active Protocol: Document 05/24/20 12:11 MB (Rec: 05/24/20 13:24 MB [id number]) Posture Evaluation Comments Posture Comments Standing: forward head, decreased cervical lordosis, Dowager's hump, decreased thoracic kyphosis, anterior tilt pelvis, increased lumbar lordosis, protruding left lower ribs/curvature left thoracolumbar spine, right iliac crest higher than the left and right shoulder higher than the left. Skin Assessment Other Assessments Skin Assessment Comments Left TKR incision with healing scab PT-OP-K Range of Motion Start: 05/19/20 11:55 Freq: Status: Active Protocol: Document 05/24/20 12:11 MB (Rec: 05/24/20 13:24 MB [id number]) Knee Goniometric Range of Motion Knee Left Knee ROM WFL No Patient Position Supine Flexion Active (degrees) 83 Extension Active (degrees) 5 Right Knee ROM WFL No Patient Position Supine Flexion Active (degrees) 90 Extension Active (degrees) 0 Knee ROM Limitations Knee ROM Limitations Soft Tissue Tightness, Contracture,Muscle Weakness Comments S/p B knee surgeries PT-OP-M Strength Start: 05/19/20 11:55 Freq: Status: Active Protocol: Document 05/24/20 12:11 MB (Rec: 05/24/20 13:24 MB [id number]) Hip Strength Hip Manual Muscle Testing Left Flexion (L2) 4 Good Abduction 4 Good Right Flexion (L2) 4 Good Abduction 4 Good Knee Strength Knee Manual Muscle Testing Left Flexion (S2) 4 Good Extension (L3) 4 Good Right Flexion (S2) 4 Good Extension (L3) 5 Normal Ankle/Foot Strength Ankle and Foot Manual Muscle Testing Left Dorsiflexion (L4) 5 Normal Right Dorsiflexion (L4) 5 Normal Toe Strength Toe Manual Muscle Testing Left Great Toe Extension 5 Normal Right Great Toe Extension 5 Normal PT-OP-T Assessment and Plan Start: 05/19/20 11:55 Freq: Status: Active Protocol: Document 06/07/20 14:02 MB (Rec: 06/07/20 14:02 MB [id number]) Physical Therapy Plan Discharge Physical Therapy Discharge Reasons Patient Request Discharge Comments Pt calls to cancel PT and state that PT is no longer needed. On evaluation, pt communicated that she was concerned about copay cost. Will d/c PT.
== END 2020-06-20 12:38 ==
LOC: PHYS 11:52
PROVIDERS: Family Provider Internal Medicine; PCP Internal Medicine; Referring Provider Physician Assistant; Visit Provider Physician Assistant
DX: M17.12 Unilateral primary osteoarthritis, left knee (principal)
CPT/HCPCS: 97110; 97161

== ENCOUNTER → 2020-08-08 10:49 | Outpatient (CLI) | payer OTHER, SELFPAY ==
[2020-08-08 12:33] LABS: Add Manual Diff / Slide Review NO; Basophils Absolute Auto 0 /uL (0-100); Basophils Percent Auto 0.6 % (0-2); Eosinophils Absolute Auto 200 /uL (0-450); Eosinophils Percent Auto 3.2 % (2-4); Hematocrit 33.3 % (36-46); Hemoglobin 11.1 g/dL (12.0-16.0); Lymphocytes Absolute Auto 1100 /uL (1100-4500); Lymphocytes Percent Auto 15.4 % (25-40); Mean Corpuscular HGB Conc 33.3 % (30-36); Mean Corpuscular Hemoglobin 30.8 PG (26-34); Mean Corpuscular Volume 92.3 fL (80-100); Monocytes Absolute Auto 500 /uL (0-900); Monocytes Percent Auto 6.5 % (3-14); Neutrophils Absolute Auto 5400 /uL (1500-7000); Neutrophils Percent Auto 74.3 % (50-75); Platelet Count 243 X10^3/uL (150-400); Red Blood Cell Count 3.61 X10^6/uL (4.0-5.2); Red Cell Distribution Width 13.8 % (11.6-14.8); White Blood Cell Count 7.2 X10^3/uL (4.5-11.0)
[2020-08-08 12:53] LABS: Alanine Aminotransferase 19 IU/L (<35); Albumin 4.1 g/dL (3.5-5.0); Albumin Globulin Ratio 1.4 (1.0-2.8); Alkaline Phosphatase 124 U/L (38-126); Aspartate Aminotransferase 26 IU/L (14-36); BUN Creatinine Ratio 18.3 (6-22); Bilirubin Total 0.5 mg/dL (0.2-1.3); Blood Urea Nitrogen 20 mg/dL (7-17); Calcium 9.8 mg/dL (8.4-10.2); Carbon Dioxide 31 mmol/L (22-32); Chloride 103 mmol/L (98-107); Estimated Glomerular Filt Rate 48.1 mL/min (>60); Globulin 2.9 g/dL (1.7-4.1); Glucose 92 mg/dL (80-110); HEMOLYSIS < 15 (0-50); Potassium 3.9 mmol/L (3.4-5.1); Sodium 139 mmol/L (137-145)
[2020-08-08 12:58] LABS: BUN Creatinine Ratio 18.8 (6-22); Blood Urea Nitrogen 21 mg/dL (7-17); Calcium 9.8 mg/dL (8.4-10.2); Carbon Dioxide 31 mmol/L (22-32); Chloride 104 mmol/L (98-107); Cholesterol 166 mg/dL (140-199); Estimated Glomerular Filt Rate 46.6 mL/min (>60); Glucose 93 mg/dL (80-110); HDL Cholesterol 69 mg/dL (40-60); HEMOLYSIS < 15 (0-50); LDL Cholesterol Calculated 78 mg/dL (<100); Potassium 4.1 mmol/L (3.4-5.1); Sodium 138 mmol/L (137-145); Triglycerides 95 mg/dL (35-150)
== END ==
PROVIDERS: Internal Medicine Hematology & Oncology; Family Provider Internal Medicine; PCP Internal Medicine; Referring Provider Internal Medicine Cardiovascular Disease; Visit Provider Internal Medicine Cardiovascular Disease
DX: I10 Essential (primary) hypertension (principal); C50.919 Malignant neoplasm of unspecified site of unspecified female breast
CPT/HCPCS: 80048; 80053; 80061; 85025

== ENCOUNTER → 2020-08-25 09:57 | Outpatient (CLI) | payer OTHER, SELFPAY ==
--- NOTE | 2020-08-25 09:58 | DI.MG.S_ITS ---
BILATERAL DIGITAL SCREENING MAMMOGRAM 3D/2D WITH CAD POST LUMPECTOMY: 08/25/2020 CLINICAL: Routine screening. Personal history of right breast cancer. Comparison is made to exams dated: 08/24/2019 mammogram, 10/28/2018 mammogram, and 12/11/2017 mammogram - [facility]. There are scattered fibroglandular elements in both breasts. Current study was also evaluated with a Computer Aided Detection (CAD) system. There are stable benign calcifications in the left breast. There also are stable benign vascular calcifications in both breasts. Additionally, there are benign post operative findings in the right breast. No significant masses, calcifications, or other findings are seen in either breast. There has been no significant interval change. IMPRESSION: BENIGN There is no mammographic evidence of malignancy. A 1 year screening mammogram is recommended. This exam was interpreted at Station ID: [id number]. NOTE: For mammograms, a report in lay terms will be sent to the patient. Approximately 15% of breast malignancies will not be visualized mammographically. In the management of a palpable breast mass, a negative mammogram must not discourage biopsy of a clinically suspicious lesion. Electronically Signed By: Obie Dinh acr/penrad:08/25/2020 10:49:50 letter sent: Normal Exam ACR BI-RADS Category 2: Benign Finding(s) [id number]
== END ==
PROVIDERS: Family Provider Internal Medicine; PCP Internal Medicine; Referring Provider Internal Medicine; Visit Provider Internal Medicine Hematology & Oncology
DX: Z12.31 Encounter for screening mammogram for malignant neoplasm of breast (principal); Z85.3 Personal history of malignant neoplasm of breast
CPT/HCPCS: 77063; 77067

== ENCOUNTER 2021-05-31 10:08 | Outpatient (RCR) | payer OTHER, SELFPAY ==
--- NOTE | 2021-05-31 15:19 | PT.OIE ---
Current Diagnoses Unilateral primary osteoarthritis, right knee (05/31/21) Presence of right artificial knee joint (05/31/21) Past Medical History (Last Updated 03/14/21 @ 09:34 by Hugo Merchant MD) Acne Breast cancer Chicken pox (~1939) Chronic back pain Chronic CHF Chronic renal failure, stage 3 (moderate) Diastolic dysfunction Essential hypertension Fracture History of left knee replacement Major depression in remission Measles (~1939) Obesity (BMI 30-39.9) Obstructive sleep apnea (~10/2018) Pulmonary hypertension Status post trigger finger release Past Surgical History (Last Updated 08/10/20 @ 10:22 by MARITA Vasquez) Cataracts, bilateral (~2013) History of carpal tunnel repair History of carpal tunnel repair History of knee replacement History of left knee replacement Status post appendectomy Status post hysterectomy with oophorectomy Status post trigger finger release Visit Care Team Role Provider Type Hugo Merchant MD Primary Care Provider Physician Specialty: Internal Medicine Address: [address] [place] [address], [facility] [address], [address] Email: [email or web address] Mauro Andrade MD Attending Provider Non-Staff Referring Provider Specialty: Orthopedics Address: [address] [place] [address], [id number] Email: Physical Therapy Initial Evaluation PT-OP-A Visit Information Start: 05/31/21 14:49 Freq: Status: Active Protocol: Document 05/31/21 10:30 HH (Rec: 05/31/21 15:19 [email or web address]) Out-Patient Physical Therapy Visit Information Visit Information Visit Type Initial Evaluation Visit Start Time 10:30 Visit Stop Time 11:15 Total Visit Minutes 45 Visit Number 09/16 Number of LOFTSMAN/WOMAN Visits 0 Evaluation Information Evaluation Date 05/31/21 Precautions Precautions SOB CHF HTN PT-OP-B Current Condition Start: 05/31/21 14:49 Freq: Status: Active Protocol: Document 05/31/21 10:30 HH (Rec: 05/31/21 15:19 [email or web address]) Current Condition History of Current Condition Onset Date a month ago Current Complaints s/p R TKA, difficulty in walking and stair climbing History of Current Condition Marylou is a 80yo female1 month post op R TKA by Dr. Andrade. Pt previously had partial knee replacement many years ago but it started to get worse recently. Her current c/o is weakness and difficulty for long walks and stair climbing. She is still using step to pattern leading with L going up. She also stated her primary limitation is being SOB who can only last walking for 200ft before she has to sit down. PMH includes CHF. 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 She mentioned she has less interested in doing things nowadays. Prior Treatments and Tests previous partial knee replacement on R L TKA Personal Factors Other Personal Factors That May Effect SOB Therapy/Recovery CHF PT-OP-C Subjective Start: 05/31/21 14:49 Freq: Status: Active Protocol: Document 05/31/21 10:30 HH (Rec: 05/31/21 15:19 HH [email or web address]) Patient Questionnaires Lower Extremity Functional Scale LEFS Score 17 LEFS Impairment 60 to 79% Impaired (Score 17- 31) OP-PT Pain Assessment Location R knee Pain Location Details back of R knee Intensity 3 Scale Used Numeric (0 - 10) Description Aching,Pressure Frequency Frequent Pain Aggravating Factors Walking,Stair Climbing Pain Alleviating Factors Inactivity PT-OP-D Balance Start: 05/31/21 14:49 Freq: Status: Active Protocol: Document 05/31/21 10:30 HH (Rec: 05/31/21 15:19 [email or web address]) Balance Tests Single Limb Standing Single Limb- Right unable Single Limb- Left unable PT-OP-E Functional Tests Start: 05/31/21 14:49 Freq: Status: Active Protocol: Document 05/31/21 10:30 HH (Rec: 05/31/21 15:19 HH [email or web address]) Functional Tests 30 Second Sit to Stand Test Score 10 times Comments 19 inches table, no UE support , O298%, HR 86 PT-OP-F Manual Assessment Start: 05/31/21 14:49 Freq: Status: Active Protocol: Document 05/31/21 10:30 HH (Rec: 05/31/21 15:19 [email or web address]) Manual Assessments Soft Tissue Assessment Soft Tissue Mobility Assessment good skin integrity at incision site slight warm to touch, mild swelling at the back of R knee . mild pain to pressure at the back of R knee PT-OP-G Mobility & Gait Start: 05/31/21 14:49 Freq: Status: Active Protocol: Document 05/31/21 10:30 HH (Rec: 05/31/21 15:19 HH [email or web address]) OP Gait Assessment Comments Gait Comments L hip drop during RLE stance phase Stair Climbing Evaluation Technique/Endurance Stair Climbing Direction Ascend and Descend Stair Climbing Technique Step to Step Comments Stair Climbing Comments step to pattern leading with L to ascend, with R rail PT-OP-K Range of Motion Start: 05/31/21 14:49 Freq: Status: Active Protocol: Document 05/31/21 10:30 HH (Rec: 05/31/21 15:19 [email or web address]) Knee Goniometric Range of Motion Knee Right Knee ROM WFL Yes Patient Position Supine Flexion Active (degrees) 123 Comments extension lack of 5 degrees Left Knee ROM WFL Yes Patient Position Supine Flexion Active (degrees) 125 Extension Active (degrees) 0 Ankle and Foot Goniometric Range of Motion Ankle and Foot Right Active Dorsiflexion with Knee Extended 7 Left Active Dorsiflexion with Knee Extended 3 PT-OP-M Strength Start: 05/31/21 14:49 Freq: Status: Active Protocol: Document 05/31/21 10:30 HH (Rec: 05/31/21 15:19 [email or web address]) Hip Strength Hip Manual Muscle Testing Right Flexion (L2) 4 Good Extension (S1) 4+ Good+ Abduction 4+ Good+ Adduction 4+ Good+ Left Flexion (L2) 4 Good Extension (S1) 4+ Good+ Abduction 4 Good Adduction 4 Good Knee Strength Knee Manual Muscle Testing Right Flexion (S2) 4 Good Extension (L3) 4 Good Left Flexion (S2) 4+ Good+ Extension (L3) 4+ Good+ Ankle/Foot Strength Ankle and Foot Manual Muscle Testing Right Dorsiflexion (L4) 4+ Good+ Plantarflexion (S1) 4+ Good+ Left Dorsiflexion (L4) 4+ Good+ Plantarflexion (S1) 4+ Good+ PT-OP-T Assessment and Plan Start: 05/31/21 14:49 Freq: Status: Active Protocol: Document 05/31/21 10:30 HH (Rec: 05/31/21 15:19 [email or web address]) Physical Therapy Assessment Rehab Potential Rehabilitation Potential Good Evaluation Complexity Number of Personal Factors/Comorbidities 3 or More Number of Body Systems Impaired 3 Clinical Presentation at Evaluation Stable Goals stair climbing Impairment step to pattern Residential Goal (LTG) pt will show improved single leg strength and mobility in order to be able to climb stairs with step over pattern safely. LTG Duration 8 weeks HEP Impairment pt has no HEP Short Term Goal (STG) she will comply to her daily HEP safely and independently STG Duration 4weeks ROM Impairment pt lack of knee extension Short Term Goal (STG) pt will show improved L knee extension <2 degrees therefore she has improved heel strike. STG Duration 6 weeks LEFS Impairment pt scores 17 Short Term Goal (STG) pt will be able to score >30 on LEFS to show improvements on mobility and strength STG Duration 4 weeks Residential Goal (LTG) pt will be able to score >40 on LEFS to show improvements on mobility and strength LTG Duration 8 weeks Assessment Summary Assessment Marylou is a 80yo female here for her 1month post R TKA by Dr. Andrade. Upon assessment, her R knee ROM and strength appeared to be progressing very well who is able to amb without AD, except lacking 5 degrees of knee extension. She does c/o difficulty climbing stairs with step over pattern and so does her balance. She also mentioned and appeared to be quite depressed with low motivation for daily activation and caregiving her older brother. She also gets very SOB easily with short distance walking and transfers but her HR and SpO2 are WFL. I spent time reassuring her current good progress and recommended her to reach out to meals on wheels for her and her brother to reduce the burden. I also recommended her to address to her PCP Dr. Merchant if she could get any social / mental health support . In the mean time, pt will benefit from skilled therapy to improve her single leg strength and mobility to increase her independent level such as climbing stairs and walking. Physical Therapy Plan Frequency and Duration Frequency of Treatment Every Other Week Duration of Treatment 8 weeks Plan of Care Start Date 05/31/21 Plan of Care End Date 07/30/21 Therapeutic Interventions Therapeutic Interventions Aquatic Therapy,Balance Training,Gait Training,Home Exercise Program,Joint Mobilizations,Manual Therapy, Neuromuscular Re-education, Patient/Caregiver Education, Self-Care/Home Management,Soft Tissue Mobilization,Taping, Therapeutic Activities, Therapeutic Exercises Modalities Cold Pack/Ice Massage,Electric Stimulation,Hot Packs, Infrared Therapy,Paraffin Bath ,Traction- Mechanical, Ultrasound Next Visit Focus/Plan Next Note Type Treatment Note Next Visit Plan extension stretch squat SL step up LAQ
--- NOTE | 2021-06-27 13:14 | PT.OPDS ---
Current Diagnoses Unilateral primary osteoarthritis, right knee (05/31/21) Presence of right artificial knee joint (05/31/21) Visit Care Team Role Provider Type Hugo Merchant MD Primary Care Provider Physician Specialty: Internal Medicine Address: [address] [place] [address], [facility] [address], [address] Email: [email or web address] Mauro Andrade MD Attending Provider Non-Staff Referring Provider Specialty: Orthopedics Address: [address] [place] [address] , [place], [address] Email: Visit Number Visit Number 09/16 Discharge Summary PT-OP-T Assessment and Plan Start: 05/31/21 14:49 Freq: Status: Active Protocol: Document 06/27/21 13:12 (Rec: 06/27/21 13:14 [email or web address]) Physical Therapy Plan Discharge Physical Therapy Discharge Reasons Patient Request Discharge Comments pt called in and requested to cancell all appt due to good progress. DC from PT today
== END 2021-07-13 12:51 ==
LOC: PHYS 10:08
PROVIDERS: PCP Internal Medicine; Referring Provider Orthopaedic Surgery; Visit Provider Orthopaedic Surgery
DX: Z96.651 Presence of right artificial knee joint (principal); M17.11 Unilateral primary osteoarthritis, right knee
CPT/HCPCS: 97161

== ENCOUNTER → 2021-06-06 09:51 | Outpatient (CLI) | payer OTHER, SELFPAY ==
[2021-06-06 10:56] LABS: Add Manual Diff / Slide Review NO; Basophils Absolute Auto 0 /uL (0-100); Basophils Percent Auto 0.5 % (0-2); Eosinophils Absolute Auto 300 /uL (0-450); Eosinophils Percent Auto 3.9 % (2-4); Hematocrit 33.1 % (36-46); Lymphocytes Absolute Auto 1000 /uL (1100-4500); Lymphocytes Percent Auto 12.7 % (25-40); Mean Corpuscular HGB Conc 33.2 % (30-36); Mean Corpuscular Hemoglobin 30.5 PG (26-34); Mean Corpuscular Volume 91.9 fL (80-100); Monocytes Absolute Auto 500 /uL (0-900); Neutrophils Absolute Auto 6200 /uL (1500-7000); Neutrophils Percent Auto 76.9 % (50-75); Platelet Count 285 X10^3/uL (150-400); Red Cell Distribution Width 14.5 % (11.6-14.8); White Blood Cell Count 8.1 X10^3/uL (4.5-11.0)
[2021-06-06 11:17] LABS: Erythrocyte Sedimentation Rate 50 MM/HR (0-20)
[2021-06-06 12:11] LABS: Alanine Aminotransferase 17 IU/L (<35); Albumin 4.1 g/dL (3.5-5.0); Albumin Globulin Ratio 1.4 (1.0-2.8); Alkaline Phosphatase 135 U/L (38-126); Aspartate Aminotransferase 25 IU/L (14-36); BUN Creatinine Ratio 15.9 (6-22); Bilirubin Total 0.4 mg/dL (0.2-1.3); Blood Urea Nitrogen 20 mg/dL (7-17); C-Reactive Protein Quant 1.1 mg/dL (<1.0); Calcium 9.9 mg/dL (8.4-10.2); Carbon Dioxide 29 mmol/L (22-32); Chloride 103 mmol/L (98-107); Estimated Glomerular Filt Rate 40.7 mL/min (>60); Globulin 2.9 g/dL (1.7-4.1); Glucose 110 mg/dL (80-110); HEMOLYSIS < 15 (0-50); Potassium 3.8 mmol/L (3.4-5.1); Sodium 142 mmol/L (137-145)
[2021-06-06 12:32] LABS: TSH w/ Reflex to FT4 2.11 uIU/mL (0.47-4.68)
== END ==
PROVIDERS: PCP Internal Medicine; Referring Provider Internal Medicine; Visit Provider Internal Medicine
DX: I10 Essential (primary) hypertension (principal); I50.32 Chronic diastolic (congestive) heart failure; N18.31 Chronic kidney disease, stage 3a
CPT/HCPCS: 36415; 80053; 84443; 85025; 85651; 86140

== ENCOUNTER → 2021-08-04 08:01 | Outpatient (CLI) | payer OTHER, SELFPAY ==
[2021-08-04 08:36] LABS: Add Manual Diff / Slide Review NO; Basophils Absolute Auto 0 /uL (0-100); Basophils Percent Auto 0.7 % (0-2); Eosinophils Absolute Auto 400 /uL (0-450); Eosinophils Percent Auto 5.4 % (2-4); Hematocrit 33.5 % (36-46); Hemoglobin 11.2 g/dL (12.0-16.0); Lymphocytes Absolute Auto 1000 /uL (1100-4500); Lymphocytes Percent Auto 15.2 % (25-40); Mean Corpuscular HGB Conc 33.5 % (30-36); Mean Corpuscular Hemoglobin 30.4 PG (26-34); Mean Corpuscular Volume 90.8 fL (80-100); Monocytes Absolute Auto 400 /uL (0-900); Monocytes Percent Auto 6.4 % (3-14); Neutrophils Absolute Auto 4800 /uL (1500-7000); Neutrophils Percent Auto 72.3 % (50-75); Platelet Count 243 X10^3/uL (150-400); Red Blood Cell Count 3.69 X10^6/uL (4.0-5.2); Red Cell Distribution Width 15.4 % (11.6-14.8); White Blood Cell Count 6.6 X10^3/uL (4.5-11.0)
[2021-08-04 08:56] LABS: Alanine Aminotransferase 19 IU/L (<35); Albumin 4.3 g/dL (3.5-5.0); Albumin Globulin Ratio 1.3 (1.0-2.8); Alkaline Phosphatase 115 U/L (38-126); Aspartate Aminotransferase 27 IU/L (14-36); BUN Creatinine Ratio 16.1 (6-22); Bilirubin Total 0.5 mg/dL (0.2-1.3); Blood Urea Nitrogen 20 mg/dL (7-17); C-Reactive Protein Quant < 0.5 mg/dL (<1.0); Calcium 9.7 mg/dL (8.4-10.2); Carbon Dioxide 29 mmol/L (22-32); Chloride 105 mmol/L (98-107); Cholesterol 168 mg/dL (140-199); Estimated Glomerular Filt Rate 41.3 mL/min (>60); Globulin 3.2 g/dL (1.7-4.1); Glucose 99 mg/dL (80-110); HDL Cholesterol 78 mg/dL (40-60); HEMOLYSIS < 15 (0-50); LDL Cholesterol Calculated 74 mg/dL (<100); Potassium 4.2 mmol/L (3.4-5.1); Sodium 140 mmol/L (137-145); Total Protein 7.5 g/dL (6.3-8.2); Triglycerides 79 mg/dL (35-150)
[2021-08-04 08:57] LABS: NT-proBNP (BNP-Adult 18+) 645 pg/mL (<450)
[2021-08-04 10:48] LABS: Erythrocyte Sedimentation Rate 32 MM/HR (0-20)
== END ==
PROVIDERS: PCP Internal Medicine; Referring Provider Podiatrist; Visit Provider Podiatrist
DX: I10 Essential (primary) hypertension (principal); R06.02 Shortness of breath; M79.89 Other specified soft tissue disorders
CPT/HCPCS: 36415; 80053; 80061; 83880; 85025; 85651; 86140

== ENCOUNTER → 2021-09-11 10:00 | Outpatient (CLI) | payer OTHER, SELFPAY ==
--- NOTE | 2021-09-11 10:05 | DI.RAD.S_ITS ---
PROCEDURE: XR ANKLE LT MIN 3V INDICATIONS: LEG SWELLING TECHNIQUE: 3 views of the ankle were acquired. COMPARISON: None. FINDINGS: Bones: No acute, displaced fracture. Thickening of the distal fibular cortex, which may reflect stress injury or venous venous. Osteophytosis about the medial and lateral compartments. Narrowing of the tibiotalar articulation. Ankle mortise is normally aligned. New line trace dorsal calcaneal enthesophyte. Soft tissues: Small tibiotalar joint effusion. IMPRESSION: Thickening of the distal fibular cortex, which may reflect stress injury or venous stasis. Dictated by: Óscar Leal M.D. on 09/11/2021 at 11:52 Approved by: Óscar Leal M.D. on 09/11/2021 at 11:54
== END ==
PROVIDERS: PCP Internal Medicine; Referring Provider Podiatrist; Visit Provider Podiatrist
DX: M79.89 Other specified soft tissue disorders (principal)
CPT/HCPCS: 73610

== ENCOUNTER → 2021-09-20 09:32 | Outpatient (CLI) | payer OTHER, SELFPAY ==
--- NOTE | 2021-09-20 | DI.MG.S_ITS ---
BILATERAL DIGITAL SCREENING MAMMOGRAM 3D/2D WITH CAD: 09/20/2021 CLINICAL: Routine screening. Breast cancer. Comparison is made to exams dated: 08/25/2020 mammogram, 08/24/2019 mammogram, 11/14/2018 mammogram, and 10/28/2018 mammogram - [facility]. There are scattered fibroglandular elements in both breasts. Current study was also evaluated with a Computer Aided Detection (CAD) system. There are stable benign calcifications in the left breast. There also are stable benign vascular calcifications in both breasts. Additionally, there are benign post operative findings in the right breast. No significant masses, calcifications, or other findings are seen in either breast. There has been no significant interval change. IMPRESSION: BENIGN There is no mammographic evidence of malignancy. A 1 year screening mammogram is recommended. This exam was interpreted at Station ID: [id number]. NOTE: For mammograms, a report in lay terms will be sent to the patient. Approximately 15% of breast malignancies will not be visualized mammographically. In the management of a palpable breast mass, a negative mammogram must not discourage biopsy of a clinically suspicious lesion. Electronically Signed By: Obie Dinh acr/penrad:09/20/2021 10:20:13 letter sent: Normal Exam ACR BI-RADS Category 2: Benign Finding(s) 3342F
== END ==
PROVIDERS: PCP Internal Medicine; Referring Provider Internal Medicine; Visit Provider Internal Medicine
DX: Z12.31 Encounter for screening mammogram for malignant neoplasm of breast (principal)
CPT/HCPCS: 77063; 77067

== ENCOUNTER → 2021-10-05 08:45 | Outpatient (CLI) | payer OTHER, SELFPAY ==
--- NOTE | 2021-10-05 | DI.ECHO.S_ITS ---
[place] [facility]---------+ [facility] +---------+ : : [address] : : : : [id number] : : : : Phone: [phone]---------+ Echocardiogram Report + + :Name: LUIS ANTONIO BOYLE Study Date: 10/05/2021 Height: 62 in : :[employer] ReadingLocation: Weight: 215 lb : : Gender: Female BSA: 2.0 m2 : :: 1940 Age: 81 yrs BP: 138/64 mmHg: :Reason For Study: SHORTNESS OF BREATH : :Ordering Physician: GAIL, : :SMITH Performed By: Keke Stevens : :Referring: SMITH REYNOLDS : + + Interpretation Summary The left ventricle is normal in size and wall thickness. The ejection fraction is estimated to be 60-65%. The right ventricle is normal in size and function. There is moderate mitral regurgitation. Compared to the prior echo study, there has been an increase in the severity of mitral regurgitation. There is mild aortic regurgitation. Compared to the prior echo study, there has been no change in the severity of aortic regurgitation. There is mild tricuspid regurgitation. Compared to the prior echo exam, there has been no change in TR severity. The right ventricular systolic pressure is estimated to be at least 38 mmHg based on an estimated right atrial pressure of 3 mm Hg. Compared to the prior echo exam, there has been an increase in the severity of pulmonary hypertension. Mild atherosclerotic plaque(s) in the aortic arch. Mild atherosclerotic plaque(s) in the descending aorta. Procedure: A two-dimensional transthoracic echocardiogram with color flow and Doppler was performed. The study quality was technically adequate. Comparison is made with the echocardiogram of . The patient was in sinus rhythm with heart rates between 59-70 bpm during the exam. Left Ventricle: The left ventricle is normal in size and wall thickness. There is no thrombus. The ejection fraction is estimated to be 60-65%. There are no focal wall motion abnormalities. MV E/A: 2.2 E/E' med: 9.4. Right Ventricle: The right ventricle is normal in size and function. Atria: The left atrium is severely dilated. The left atrium has mildly increased in size since the prior echo exam. Right atrial size is normal. There is no Doppler evidence for an interatrial shunt. Mitral Valve: The mitral valve leaflets appear mildly thickened, but open well. There is mild mitral annular calcification. There is moderate mitral regurgitation. Compared to the prior echo study, there has been an increase in the severity of mitral regurgitation. Aortic Valve: The aortic valve is trileaflet. The aortic valve opens well. The aortic valve is slightly calcified. There is no aortic valve stenosis. There is mild aortic regurgitation. Compared to the prior echo study, there has been no change in the severity of aortic regurgitation. Tricuspid Valve: The tricuspid valve is normal. There is mild tricuspid regurgitation. The right ventricular systolic pressure is estimated to be at least 38 mmHg based on an estimated right atrial pressure of 3 mm Hg. Compared to the prior echo exam, there has been no change in TR severity. Compared to the prior echo exam, there has been an increase in the severity of pulmonary hypertension. Pulmonic Valve: The pulmonic valve is not well seen, but is grossly normal. There is no pulmonic valvular regurgitation. Great Vessels: The aortic root is normal size. The dimensions of the ascending aorta are normal. Mild atherosclerotic plaque(s) in the aortic arch. Mild atherosclerotic plaque(s) in the descending aorta. The IVC is of normal diameter and collapses greater than 50% with a sniff. This suggests a low right atrial pressure of 3 mm Hg. Pericardium/ Pleura There is no pericardial effusion. There is no pleural effusion. MMode/2D Measurements & Calculations LVIDd: 5.0 cm LVOT diam: 1.9 cm LVIDs: 3.5 cm Ao root diam: 2.6 cm FS: 29.2 % asc Aorta Diam: 2.9 cm IVSd: 0.65 cm Ao Arch Diam (Prox Trans): 2.4 cm LVPWd: 0.77 cm LV mejia. diameter/BSA (cm/m^2): 2.5 LV sys. diameter/BSA (cm/m^2): 1.8 LA A2 area: 23.0 cm2 RA long axis: 6.3 cm LA A4 area: 23.2 cm2 RA area: 17.3 cm2 LA length (vol): 6.5 cm RA vol: 40.5 ml LA vol: 69.2 ml RA : 20.6 ml/m2 LA vol index: 35.1 ml/m2 IVC diam: 1.2 cm RVD1 (basal): 3.3 cm RVD2 (mid): 2.5 cm TAPSE: 2.3 cm Doppler Measurements & Calculations Ao V2 max: 152.2 cm/sec LVOT Max Martir: 95.8 cm/sec Ao V2 mean: 93.8 cm/sec LV V1 max P.7 mmHg Ao max P.3 mmHg LV V1 VTI: 23.7 cm Ao mean P.3 mmHg ZELALEM(I,D): 2.0 cm2 Ao V2 VTI: 33.9 cm ZELALEM(V,D): 1.8 cm2 sev ratio: 0.70 ZELALEM indexed to BSA (cm^2/m^2): 1.0 MV E max martir: 75.3 cm/sec TR max martir: 294.8 cm/sec MV A max martir: 35.0 cm/sec TR max P.8 mmHg MV E/A: 2.2 PA V2 max: 91.3 cm/sec Med Peak E' Martir: 8.0 cm/sec PA V2 mean: 60.3 cm/sec E/E' med: 9.4 PA mean P.7 mmHg Lat Peak E' Martir: 7.4 cm/sec PA pr(Accel): 25.9 mmHg E/E' lat: 10.2 E/e' average: 9.8 MV dec time: 0.30 sec SV(LVOT): 67.1 ml Reading Physician:12:59 PM
== END ==
PROVIDERS: PCP Internal Medicine; Referring Provider Internal Medicine Cardiovascular Disease; Visit Provider Internal Medicine Cardiovascular Disease
DX: I08.3 Combined rheumatic disorders of mitral, aortic and tricuspid valves (principal); I70.0 Atherosclerosis of aorta; R06.02 Shortness of breath
CPT/HCPCS: 93306

== ENCOUNTER → 2021-10-24 08:41 | Outpatient (CLI) | payer OTHER, SELFPAY ==
[2021-10-24 09:05] LABS: Add Manual Diff / Slide Review NO; Basophils Absolute Auto 100 /uL (0-100); Basophils Percent Auto 0.6 % (0-2); Eosinophils Absolute Auto 300 /uL (0-450); Eosinophils Percent Auto 3.2 % (2-4); Hematocrit 34.7 % (36-46); Hemoglobin 11.5 g/dL (12.0-16.0); Lymphocytes Absolute Auto 1000 /uL (1100-4500); Lymphocytes Percent Auto 12.2 % (25-40); Mean Corpuscular HGB Conc 33.2 % (30-36); Mean Corpuscular Hemoglobin 30.6 PG (26-34); Mean Corpuscular Volume 92.3 fL (80-100); Monocytes Absolute Auto 500 /uL (0-900); Monocytes Percent Auto 5.9 % (3-14); Neutrophils Absolute Auto 6200 /uL (1500-7000); Neutrophils Percent Auto 78.1 % (50-75); Platelet Count 242 X10^3/uL (150-400); Red Blood Cell Count 3.76 X10^6/uL (4.0-5.2); Red Cell Distribution Width 14.8 % (11.6-14.8)
[2021-10-24 09:16] LABS: Alanine Aminotransferase 19 IU/L (<35); Albumin 4.5 g/dL (3.5-5.0); Albumin Globulin Ratio 1.3 (1.0-2.8); Alkaline Phosphatase 120 U/L (38-126); Aspartate Aminotransferase 28 IU/L (14-36); BUN Creatinine Ratio 22.2 (6-22); Bilirubin Total 0.5 mg/dL (0.2-1.3); Blood Urea Nitrogen 28 mg/dL (7-17); Calcium 9.4 mg/dL (8.4-10.2); Carbon Dioxide 29 mmol/L (22-32); Chloride 105 mmol/L (98-107); Cholesterol 158 mg/dL (140-199); Estimated Glomerular Filt Rate 40.6 mL/min (>60); Globulin 3.6 g/dL (1.7-4.1); Glucose 98 mg/dL (80-110); HDL Cholesterol 70 mg/dL (40-60); HEMOLYSIS < 15 (0-50); LDL Cholesterol Calculated 75 mg/dL (<100); Potassium 3.8 mmol/L (3.4-5.1); Sodium 140 mmol/L (137-145); Total Protein 8.1 g/dL (6.3-8.2); Triglycerides 63 mg/dL (35-150)
[2021-10-24 09:25] LABS: NT-proBNP (BNP-Adult 18+) 415 pg/mL (<450)
== END ==
PROVIDERS: Internal Medicine Hematology & Oncology; PCP Internal Medicine; Referring Provider Internal Medicine Cardiovascular Disease; Visit Provider Internal Medicine Cardiovascular Disease
DX: I10 Essential (primary) hypertension (principal); R06.02 Shortness of breath; C50.919 Malignant neoplasm of unspecified site of unspecified female breast
CPT/HCPCS: 80053; 80061; 83880; 85025

== ENCOUNTER → 2022-07-04 13:32 | Outpatient (CLI) | payer OTHER, SELFPAY ==
[2022-07-04 14:54] LABS: Alanine Aminotransferase 21 IU/L (<35); Albumin 4.2 g/dL (3.5-5.0); Albumin Globulin Ratio 1.2 (1.0-2.8); Alkaline Phosphatase 136 U/L (38-126); Aspartate Aminotransferase 25 IU/L (14-36); BUN Creatinine Ratio 18.6 (6-22); Bilirubin Total 0.7 mg/dL (0.2-1.3); Blood Urea Nitrogen 21 mg/dL (7-17); Calcium 9.5 mg/dL (8.4-10.2); Carbon Dioxide 26 mmol/L (22-32); Chloride 104 mmol/L (98-107); Estimated Glomerular Filt Rate 48 mL/min (>60); Globulin 3.6 g/dL (1.7-4.1); Glucose 101 mg/dL (80-110); HEMOLYSIS < 15 (0-50); Potassium 3.6 mmol/L (3.4-5.1); Sodium 142 mmol/L (137-145); Total Protein 7.8 g/dL (6.3-8.2)
== END ==
PROVIDERS: PCP Internal Medicine; Referring Provider Internal Medicine; Visit Provider Internal Medicine
DX: I10 Essential (primary) hypertension (principal); N18.31 Chronic kidney disease, stage 3a
CPT/HCPCS: 36415; 80053

== ENCOUNTER → 2022-09-24 08:16 | Outpatient (CLI) | payer OTHER, SELFPAY ==
--- NOTE | 2022-09-24 | DI.MG.S_ITS ---
BILATERAL DIGITAL SCREENING MAMMOGRAM 3D/2D WITH CAD POST LUMPECTOMY: 09/24/2022 CLINICAL: Routine screening. Personal history of right breast cancer. Comparison is made to exams dated: 09/20/2021 mammogram, 08/25/2020 mammogram, and 10/28/2018 mammogram - [facility]. There are scattered areas of fibroglandular density in both breasts (category b / 25%-50% glandular tissue). Current study was also evaluated with a Computer Aided Detection (CAD) system. There are stable benign calcifications in the left breast. There also are stable benign vascular calcifications in both breasts. Additionally, there are benign post operative findings in the right breast. No significant masses, calcifications, or other findings are seen in either breast. There has been no significant interval change. IMPRESSION: BENIGN There is no mammographic evidence of malignancy. A 1 year screening mammogram is recommended. This exam was interpreted at Station ID: [id number]. NOTE: For mammograms, a report in lay terms will be sent to the patient. Approximately 15% of breast malignancies will not be visualized mammographically. In the management of a palpable breast mass, a negative mammogram must not discourage biopsy of a clinically suspicious lesion. Electronically Signed By: Lebron ricks/prudencio:09/24/2022 08:48:42 letter sent: Normal Exam ACR BI-RADS Category 2: Benign Finding(s) [id number]
== END ==
PROVIDERS: Family Provider Internal Medicine; PCP Internal Medicine; Referring Provider Internal Medicine; Visit Provider Internal Medicine
DX: Z12.31 Encounter for screening mammogram for malignant neoplasm of breast (principal); Z85.3 Personal history of malignant neoplasm of breast
CPT/HCPCS: 77063; 77067

== ENCOUNTER → 2022-11-02 10:40 | Outpatient (CLI) | payer OTHER, SELFPAY | PROVIDERS: Family Provider Internal Medicine; PCP Internal Medicine; Referring Provider Internal Medicine Hematology & Oncology; Visit Provider Internal Medicine Hematology & Oncology | DX: M85.851 Other specified disorders of bone density and structure, right thigh (principal); Z13.820 Encounter for screening for osteoporosis; C50.811 Malignant neoplasm of overlapping sites of right female breast; Z17.0 Estrogen receptor positive status [ER+]; Z78.0 Asymptomatic menopausal state; Z87.311 Personal history of (healed) other pathological fracture; Z90.710 Acquired absence of both cervix and uterus; Z92.23 Personal history of estrogen therapy | CPT/HCPCS: 77080 ==

== ENCOUNTER 2022-11-07 09:00 | Outpatient (RCR) | payer OTHER, SELFPAY ==
--- NOTE | 2022-09-06 12:20 | PT.OIE ---
Current Diagnoses Impingement syndrome of left shoulder (09/06/22) Bursitis of left shoulder (09/06/22) Abnormal posture (09/06/22) Weakness (09/06/22) Past Medical History (Last Updated 08/03/21 @ 23:18 by MARITA Vasquez) Acne Breast cancer Chicken pox (~1939) Chronic back pain Chronic CHF Chronic renal failure, stage 3 (moderate) Diastolic dysfunction Essential hypertension Fracture Major depression in remission Measles (~1939) investigator associated with adverse incidents (~02/13/21) Obesity (BMI 30-39.9) Obstructive sleep apnea (~10/2018) Pulmonary hypertension Past Surgical History (Last Reviewed 06/06/21 @ 09:53 by Hugo Merchant MD) Cataracts, bilateral (~2013) History of carpal tunnel repair History of carpal tunnel repair History of knee replacement History of left knee replacement Status post appendectomy Status post hysterectomy with oophorectomy Status post trigger finger release Visit Care Team Role Provider Type Hugo Merchant MD Family Provider Physician Primary Care Provider Specialty: Internal Medicine Address: [address] [place] [address], [address], [address] Email: [email or web address] Stephan Guardado MD Attending Provider Physician Referring Provider Specialty: Orthopedics Orthopedic Surgery Address: [address] [place] [address], [id number] Email: [email or web address] Physical Therapy Initial Evaluation PT-OP-A Visit Information Start: 09/05/22 13:38 Freq: Status: Active Protocol: Document 09/06/22 07:28 [facility] (Rec: 09/06/22 08:21 [facility] [id number]) Out-Patient Physical Therapy Visit Information Visit Information Visit Type Initial Evaluation Visit Note 09/11 Visit Start Time 07:32 Visit Stop Time 08:17 Total Visit Minutes 45 Visit Number 1 Number of CARD SORTER Visits 0 PT-OP-B Current Condition Start: 09/05/22 13:38 Freq: Status: Active Protocol: Document 09/06/22 07:28 [facility] (Rec: 09/06/22 08:21 [facility] [id number]) Current Condition History of Current Condition Onset Date years Current Complaints L shoulder pain History of Current Condition She used to exercise a lot but stopped working out for several years and when COVID happened, she completely stopped. She thinks the shoulder pain is just arthritis from wear and tear. She noticed it years ago and every now and then she would notice sharp pinches ot her shoulder w/overhead activity. She does a lot of scrapbooking and carrying heavy boxes and that makes it ache. She saw ortho about 1 month ago and got cortizone shot and hasn't really had much pain since. She sees ortho next week. Pt has R sided breast cancer w/ radiation treatment and has been in remission for almost 4 years. Pt woud just do all the things needed, but it would just hurt after. Prior Treatments and Tests Xrays-Ortho said it showed bursitis Treatment Goals Patient/Caregiver Goals Get back to everything PT-OP-C Subjective Start: 09/05/22 13:38 Freq: Status: Active Protocol: Document 09/06/22 07:28 [facility] (Rec: 09/06/22 08:21 [facility] [id number]) OP-PT Pain Assessment Location L shoulder Pain Location Details ant lat brachium Description Aching,Sharp Frequency Intermittent Pain Aggravating Factors Lifting Other Pain Aggravating Factors overhead activity PT-OP-F Manual Assessment Start: 09/05/22 13:38 Freq: Status: Active Protocol: Document 09/06/22 07:28 [facility] (Rec: 09/06/22 08:21 [facility] [id number]) Manual Assessments Soft Tissue Assessment Soft Tissue Mobility Assessment mild tenderness in L biceps, infraspinatus Joint Mobility Assessment Joint Mobility Assessment humerus L slightly more ant in glenoid than R PT-OP-J Posture/Palpation/Skin Start: 09/05/22 13:38 Freq: Status: Active Protocol: Document 09/06/22 07:28 [facility] (Rec: 09/06/22 08:21 [facility] [id number]) Posture Evaluation [facility] Postural Classification System Elbow Flexion Test 2 Comments Posture Comments fwd head and some inc kyphosis PT-OP-K Range of Motion Start: 09/05/22 13:38 Freq: Status: Active Protocol: Document 09/06/22 07:28 [facility] (Rec: 09/06/22 08:21 [facility] [id number]) Shoulder Goniometric Range of Motion Shoulder Right Active Flexion 164 Extension 65 Abduction 175 External Rotation at 90 degrees 63 Abduction External Rotation at 0 degrees Abduction 62 Internal Rotation Behind Back (text) T5 Left Active Flexion 159 Extension 65 Abduction 169 External Rotation at 90 degrees 60 Abduction External Rotation at 0 degrees Abduction 73 Internal Rotation Behind Back (text) T7 PT-OP-L Special Tests Start: 09/05/22 13:38 Freq: Status: Active Protocol: Document 09/06/22 07:28 [facility] (Rec: 09/06/22 08:21 [facility] [id number]) Special Tests Shoulder Special Tests Sulcus Test Results neg Yergason's Biceps Test Results neg Speed's Biceps Test Results neg -discomfort but no change from obriens [place] Test Test Results neg-disocmofrt but no change from speeds Waller Jani Impingement Test Results neg Neer Impingement Test Results neg Empty Can Test Results neg AC Joint Compression Test Results neg Neural Special Tests- Upper Body Median Nerve Tension Test Results neg Radial Nerve Tension Test Results neg Ulnar Nerve Tension Test Results neg PT-OP-M Strength Start: 09/05/22 13:38 Freq: Status: Active Protocol: Document 09/06/22 07:28 [facility] (Rec: 09/06/22 08:21 [facility] [id number]) Shoulder Strength Shoulder Manual Muscle Testing Right Flexion 5 Normal Extension 5 Normal Abduction (C5) 5 Normal External Rotation 5 Normal Internal Rotation 5 Normal Horizontal Abduction 4+ Good+ Horizontal Adduction 5 Normal Left Flexion 4- Good- Extension 4+ Good+ Abduction (C5) 4- Good- External Rotation 4 Good Internal Rotation 4- Good- Horizontal Abduction 4+ Good+ Horizontal Adduction 4+ Good+ Comments mild discomfort w/flex Elbow/Forearm Strength Elbow and Forearm Manual Muscle Testing Right Flexion (C6) 5 Normal Extension (C7) 5 Normal Pronation 5 Normal Supination 5 Normal Left Flexion (C6) 4+ Good+ Extension (C7) 4+ Good+ Pronation 4 Good Supination 5 Normal PT-OP-Q Treatments Start: 09/05/22 13:38 Freq: Status: Active Protocol: Document 09/06/22 07:28 [facility] (Rec: 09/06/22 08:21 [facility] [id number]) Therapeutic Exercises Standing Exercises flex Side left Equipment Used L1 Reps/Minutes 15 ER Side bilateral Equipment Used L1 Reps/Minutes 15 IR Side left Equipment Used L2 Reps/Minutes 15 ext Side bilateral Resistance L3 Reps/Minutes 15 PT-OP-T Assessment and Plan Start: 09/05/22 13:38 Freq: Status: Active Protocol: Document 09/06/22 07:28 [facility] (Rec: 09/06/22 08:21 [facility] [id number]) Physical Therapy Assessment Rehab Potential Rehabilitation Potential Good Evaluation Complexity Number of Personal Factors/Comorbidities 3 or More Number of Body Systems Impaired 4 or More Clinical Presentation at Evaluation Evolving Impairments Impairments Activity Tolerance,Functional Activities,Functional Mobility ,Pain,Posture,ROM,Soft Tissue Mobility,Strength Goals activities Inventory Control Analyst Goal (LTG) Pt will be able to carry all her scrapbook bags and do any cleaning/drying of hair that requires overhead reach for extended time w/o weakness or difficulty LTG Duration 11/29/22 strength Short Term Goal (STG) Pt will be indep w/HEP STG Duration 10/17/22 Usp Goal (LTG) Pt will score LUE strength equal to that of RUE to show improved strength and functional ability. LTG Duration 11/29/22 Assessment Summary Assessment Pt presents w/L shoulder discomfort that is minimal since getting steroid injection about 1 month ago. She has had this pain for years, but had no obvious injury. She does still have significant weakenss to LUE and she is L handed. She does show some impaired GH mechanics and would benefit from skilled PT for appropraite HEP to improve this and manual to help w/ mechanics. Physical Therapy Plan Frequency and Duration Frequency of Treatment 1-2x/wk Duration of treatment (weeks) 12 Plan of Care Start Date 09/06/22 Plan of Care End Date 11/29/22 Therapeutic Interventions Therapeutic Interventions Home Exercise Program,Joint Mobilizations,Manual Therapy, Neuromuscular Re-education, Patient/Caregiver Education, Self-Care/Home Management,Soft Tissue Mobilization,Taping, Therapeutic Activities, Therapeutic Exercises Modalities Cold Pack/Ice Massage,Hot Packs Next Visit Focus/Plan Next Note Type Treatment Note Next Visit Plan review exercises, try serratus punch, Habd w/tband, rows, and cont to work on scap strength & stability, manual to AC & GH for improved mechanics
--- NOTE | 2022-09-06 12:20 | PT.OPPOC ---
Physical, Occupational & Speech Therapy At [facility] Current Diagnoses Impingement syndrome of left shoulder (09/06/22) Bursitis of left shoulder (09/06/22) Abnormal posture (09/06/22) Weakness (09/06/22) Visit Care Team Role Provider Type Hugo Merchant MD Family Provider Physician Primary Care Provider Specialty: Internal Medicine Address: [address] [place] [address], [address], [address] Email: [email or web address] Stephan Guardado MD Attending Provider Physician Referring Provider Specialty: Orthopedics Orthopedic Surgery Address: [address] [place] [address], [address] Email: [email or web address] Plan Of Care PT-OP-T Assessment and Plan Start: 09/05/22 13:38 Freq: Status: Active Protocol: Document 09/06/22 07:28 [facility] (Rec: 09/06/22 08:21 [facility] [id number]) Physical Therapy Assessment Rehab Potential Rehabilitation Potential Good Evaluation Complexity Number of Personal Factors/Comorbidities 3 or More Number of Body Systems Impaired 4 or More Clinical Presentation at Evaluation Evolving Impairments Impairments Activity Tolerance,Functional Activities,Functional Mobility ,Pain,Posture,ROM,Soft Tissue Mobility,Strength Goals activities Mail Handler Sorter Goal (LTG) Pt will be able to carry all her scrapbook bags and do any cleaning/drying of hair that requires overhead reach for extended time w/o weakness or difficulty LTG Duration 11/29/22 strength Short Term Goal (STG) Pt will be indep w/HEP STG Duration 10/17/22 Prison Goal (LTG) Pt will score LUE strength equal to that of RUE to show improved strength and functional ability. LTG Duration 11/29/22 Assessment Summary Assessment Pt presents w/L shoulder discomfort that is minimal since getting steroid injection about 1 month ago. She has had this pain for years, but had no obvious injury. She does still have significant weakenss to LUE and she is L handed. She does show some impaired GH mechanics and would benefit from skilled PT for appropraite HEP to improve this and manual to help w/ mechanics. Physical Therapy Plan Frequency and Duration Frequency of Treatment 1-2x/wk Duration of treatment (weeks) 12 Plan of Care Start Date 09/06/22 Plan of Care End Date 11/29/22 Therapeutic Interventions Therapeutic Interventions Home Exercise Program,Joint Mobilizations,Manual Therapy, Neuromuscular Re-education, Patient/Caregiver Education, Self-Care/Home Management,Soft Tissue Mobilization,Taping, Therapeutic Activities, Therapeutic Exercises Modalities Cold Pack/Ice Massage,Hot Packs Next Visit Focus/Plan Next Note Type Treatment Note Next Visit Plan review exercises, try serratus punch, Habd w/tband, rows, and cont to work on scap strength & stability, manual to AC & GH for improved mechanics Plan of Care Dates Plan of Care Start Date 09/06/22 Plan of Care End Date 11/29/22 Electronically Signed by: Estefanía Macias, PT 09/06/22 4345 If you are in agreement with this Plan of Care, please return a signed and dated copy. I have reviewed this Plan of Care and certify that the skilled therapy services above are required to meet the patient?s needs. Physician Signature Date Printed Name and Credentials Clinical Instructor Signature Printed Name and Credentials
--- NOTE | 2022-09-10 12:08 | PT.OTN ---
Current Diagnoses Impingement syndrome of left shoulder (09/10/22) Bursitis of left shoulder (09/10/22) Abnormal posture (09/10/22) Weakness (09/10/22) Physical Therapy Treatment Note PT-OP-A Visit Information Start: 09/05/22 13:38 Freq: Status: Active Protocol: Document 09/10/22 11:31 [facility] (Rec: 09/10/22 12:08 [facility] [id number]) Out-Patient Physical Therapy Visit Information Visit Information Visit Type Treatment Note Visit Note 10/12 Visit Start Time 11:21 Visit Stop Time 12:00 Total Visit Minutes 39 Visit Number 2 Number of INORGANIC CHEMISTRY TEACHER Visits 0 PT-OP-B Current Condition Start: 09/05/22 13:38 Freq: Status: Active Protocol: Document 09/06/22 07:28 [facility] (Rec: 09/06/22 08:21 [facility] [id number]) Current Condition History of Current Condition Onset Date years Current Complaints L shoulder pain History of Current Condition She used to exercise a lot but stopped working out for several years and when COVID happened, she completely stopped. She thinks the shoulder pain is just arthritis from wear and tear. She noticed it years ago and every now and then she would notice sharp pinches ot her shoulder w/overhead activity. She does a lot of scrapbooking and carrying heavy boxes and that makes it ache. She saw ortho about 1 month ago and got cortizone shot and hasn't really had much pain since. She sees ortho next week. Pt has R sided breast cancer w/ radiation treatment and has been in remission for almost 4 years. Pt woud just do all the things needed, but it would just hurt after. Prior Treatments and Tests Xrays-Ortho said it showed bursitis Treatment Goals Patient/Caregiver Goals Get back to everything PT-OP-C Subjective Start: 09/05/22 13:38 Freq: Status: Active Protocol: Document 09/10/22 11:31 [facility] (Rec: 09/10/22 12:08 [facility] [id number]) OP-PT Subjective Patient Comments Patient Comments Pt reprots she saw Dr. Guardado and he said everything was okay PT-OP-F Manual Assessment Start: 09/05/22 13:38 Freq: Status: Active Protocol: Document 09/06/22 07:28 [facility] (Rec: 09/06/22 08:21 [facility] [id number]) Manual Assessments Soft Tissue Assessment Soft Tissue Mobility Assessment mild tenderness in L biceps, infraspinatus Joint Mobility Assessment Joint Mobility Assessment humerus L slightly more ant in glenoid than R PT-OP-J Posture/Palpation/Skin Start: 09/05/22 13:38 Freq: Status: Active Protocol: Document 09/06/22 07:28 [facility] (Rec: 09/06/22 08:21 [facility] [id number]) Posture Evaluation [facility] Postural Classification System Elbow Flexion Test 2 Comments Posture Comments fwd head and some inc kyphosis PT-OP-K Range of Motion Start: 09/05/22 13:38 Freq: Status: Active Protocol: Document 09/06/22 07:28 [facility] (Rec: 09/06/22 08:21 [facility] [id number]) Shoulder Goniometric Range of Motion Shoulder Right Active Flexion 164 Extension 65 Abduction 175 External Rotation at 90 degrees 63 Abduction External Rotation at 0 degrees Abduction 62 Internal Rotation Behind Back (text) T5 Left Active Flexion 159 Extension 65 Abduction 169 External Rotation at 90 degrees 60 Abduction External Rotation at 0 degrees Abduction 73 Internal Rotation Behind Back (text) T7 PT-OP-L Special Tests Start: 09/05/22 13:38 Freq: Status: Active Protocol: Document 09/06/22 07:28 [facility] (Rec: 09/06/22 08:21 [facility] [id number]) Special Tests Shoulder Special Tests Sulcus Test Results neg Yergason's Biceps Test Results neg Speed's Biceps Test Results neg -discomfort but no change from obriens [place] Test Test Results neg-disocmofrt but no change from speeds Waller Jani Impingement Test Results neg Neer Impingement Test Results neg Empty Can Test Results neg AC Joint Compression Test Results neg Neural Special Tests- Upper Body Median Nerve Tension Test Results neg Radial Nerve Tension Test Results neg Ulnar Nerve Tension Test Results neg PT-OP-M Strength Start: 09/05/22 13:38 Freq: Status: Active Protocol: Document 09/06/22 07:28 [facility] (Rec: 09/06/22 08:21 [facility] [id number]) Shoulder Strength Shoulder Manual Muscle Testing Right Flexion 5 Normal Extension 5 Normal Abduction (C5) 5 Normal External Rotation 5 Normal Internal Rotation 5 Normal Horizontal Abduction 4+ Good+ Horizontal Adduction 5 Normal Left Flexion 4- Good- Extension 4+ Good+ Abduction (C5) 4- Good- External Rotation 4 Good Internal Rotation 4- Good- Horizontal Abduction 4+ Good+ Horizontal Adduction 4+ Good+ Comments mild discomfort w/flex Elbow/Forearm Strength Elbow and Forearm Manual Muscle Testing Right Flexion (C6) 5 Normal Extension (C7) 5 Normal Pronation 5 Normal Supination 5 Normal Left Flexion (C6) 4+ Good+ Extension (C7) 4+ Good+ Pronation 4 Good Supination 5 Normal PT-OP-Q Treatments Start: 09/05/22 13:38 Freq: Status: Active Protocol: Document 09/10/22 11:31 [facility] (Rec: 09/10/22 12:08 [facility] [id number]) Cardio Equipment Upper Body Ergometer (UBE) Duration (Minutes) 5 Seat Position 9 Height 4 Other fwd/back Therapeutic Exercises Supine Exercises serratus punch Side bilateral Equipment Used 2# Reps/Minutes 15 Sitting Exercises ER Sitting Exercise Name 90/90 elbow supported Side left Equipment Used 2# Reps/Minutes 15 Standing Exercises Habd Standing Exercise Name at 90 Side bilateral Equipment Used L 1 Reps/Minutes 15 Comments mirror rows Side bilateral Equipment Used lvl 3 Reps/Minutes 15 flex Side bilateral Equipment Used L1 Reps/Minutes 15 Comments mirror ER Side bilateral Equipment Used L1 Reps/Minutes 15 IR Side left Equipment Used L2 Reps/Minutes 15 Comments towel at elbow ext Side bilateral Resistance L3 Reps/Minutes 15 Manual Therapy Treatment Soft Tissue Mobilization pec Body Location L Mobilization Type Rolling Intensity/Depth Moderate Body Position Supine Joint Mobilizations GH Joint L Direction distraction & inf FM PT-OP-T Assessment and Plan Start: 09/05/22 13:38 Freq: Status: Active Protocol: Document 09/10/22 11:31 [facility] (Rec: 09/10/22 12:08 [facility] [id number]) Physical Therapy Assessment Goals activities Precision Grinder Goal (LTG) Pt will be able to carry all her scrapbook bags and do any cleaning/drying of hair that requires overhead reach for extended time w/o weakness or difficulty LTG Duration 11/29/22 strength Short Term Goal (STG) Pt will be indep w/HEP STG Duration 10/17/22 Precision Grinder Goal (LTG) Pt will score LUE strength equal to that of RUE to show improved strength and functional ability. LTG Duration 11/29/22 Assessment Summary Assessment Pt requires cueing for exercises to work on no scap elevation and apporiate scap set up. She did well with use of mirror and cues. Improved overhead mobility w/manual Physical Therapy Plan Frequency and Duration Frequency of Treatment 1-2x/wk Duration of treatment (weeks) 12 Plan of Care Start Date 09/06/22 Plan of Care End Date 11/29/22 Next Visit Focus/Plan Next Note Type Treatment Note Next Visit Plan cont to work on scap strength & stability, manual to AC & GH for improved mechanics
--- NOTE | 2022-09-13 13:43 | PT.OTN ---
Current Diagnoses Impingement syndrome of left shoulder (09/13/22) Bursitis of left shoulder (09/13/22) Abnormal posture (09/13/22) Weakness (09/13/22) Physical Therapy Treatment Note PT-OP-A Visit Information Start: 09/05/22 13:38 Freq: Status: Active Protocol: Document 09/13/22 13:05 [facility] (Rec: 09/13/22 13:43 [facility] [id number]) Out-Patient Physical Therapy Visit Information Visit Information Visit Type Treatment Note Visit Note 11/09 Visit Start Time 13:02 Visit Stop Time 13:43 Total Visit Minutes 41 Visit Number 3 Number of [employer] ATTENDANT Visits 0 PT-OP-B Current Condition Start: 09/05/22 13:38 Freq: Status: Active Protocol: Document 09/06/22 07:28 [facility] (Rec: 09/06/22 08:21 [facility] [id number]) Current Condition History of Current Condition Onset Date years Current Complaints L shoulder pain History of Current Condition She used to exercise a lot but stopped working out for several years and when COVID happened, she completely stopped. She thinks the shoulder pain is just arthritis from wear and tear. She noticed it years ago and every now and then she would notice sharp pinches ot her shoulder w/overhead activity. She does a lot of scrapbooking and carrying heavy boxes and that makes it ache. She saw ortho about 1 month ago and got cortizone shot and hasn't really had much pain since. She sees ortho next week. Pt has R sided breast cancer w/ radiation treatment and has been in remission for almost 4 years. Pt woud just do all the things needed, but it would just hurt after. Prior Treatments and Tests Xrays-Ortho said it showed bursitis Treatment Goals Patient/Caregiver Goals Get back to everything PT-OP-C Subjective Start: 09/05/22 13:38 Freq: Status: Active Protocol: Document 09/13/22 13:05 [facility] (Rec: 09/13/22 13:43 [facility] [id number]) OP-PT Subjective Patient Comments Patient Comments [place] a little soreness or something in both arms. More the mm soreness vs pain PT-OP-F Manual Assessment Start: 09/05/22 13:38 Freq: Status: Active Protocol: Document 09/06/22 07:28 [facility] (Rec: 09/06/22 08:21 [facility] [id number]) Manual Assessments Soft Tissue Assessment Soft Tissue Mobility Assessment mild tenderness in L biceps, infraspinatus Joint Mobility Assessment Joint Mobility Assessment humerus L slightly more ant in glenoid than R PT-OP-J Posture/Palpation/Skin Start: 09/05/22 13:38 Freq: Status: Active Protocol: Document 09/06/22 07:28 [facility] (Rec: 09/06/22 08:21 [facility] [id number]) Posture Evaluation Alcides Postural Classification System Elbow Flexion Test 2 Comments Posture Comments fwd head and some inc kyphosis PT-OP-K Range of Motion Start: 09/05/22 13:38 Freq: Status: Active Protocol: Document 09/06/22 07:28 [facility] (Rec: 09/06/22 08:21 [facility] [id number]) Shoulder Goniometric Range of Motion Shoulder Right Active Flexion 164 Extension 65 Abduction 175 External Rotation at 90 degrees 63 Abduction External Rotation at 0 degrees Abduction 62 Internal Rotation Behind Back (text) T5 Left Active Flexion 159 Extension 65 Abduction 169 External Rotation at 90 degrees 60 Abduction External Rotation at 0 degrees Abduction 73 Internal Rotation Behind Back (text) T7 PT-OP-L Special Tests Start: 09/05/22 13:38 Freq: Status: Active Protocol: Document 09/06/22 07:28 [facility] (Rec: 09/06/22 08:21 [facility] [id number]) Special Tests Shoulder Special Tests Sulcus Test Results neg Yergason's Biceps Test Results neg Speed's Biceps Test Results neg -discomfort but no change from obriens [place] Test Test Results neg-disocmofrt but no change from speeds [place] Jani Impingement Test Results neg Neer Impingement Test Results neg Empty Can Test Results neg AC Joint Compression Test Results neg Neural Special Tests- Upper Body Median Nerve Tension Test Results neg Radial Nerve Tension Test Results neg Ulnar Nerve Tension Test Results neg PT-OP-M Strength Start: 09/05/22 13:38 Freq: Status: Active Protocol: Document 09/06/22 07:28 [facility] (Rec: 09/06/22 08:21 [facility] [id number]) Shoulder Strength Shoulder Manual Muscle Testing Right Flexion 5 Normal Extension 5 Normal Abduction (C5) 5 Normal External Rotation 5 Normal Internal Rotation 5 Normal Horizontal Abduction 4+ Good+ Horizontal Adduction 5 Normal Left Flexion 4- Good- Extension 4+ Good+ Abduction (C5) 4- Good- External Rotation 4 Good Internal Rotation 4- Good- Horizontal Abduction 4+ Good+ Horizontal Adduction 4+ Good+ Comments mild discomfort w/flex Elbow/Forearm Strength Elbow and Forearm Manual Muscle Testing Right Flexion (C6) 5 Normal Extension (C7) 5 Normal Pronation 5 Normal Supination 5 Normal Left Flexion (C6) 4+ Good+ Extension (C7) 4+ Good+ Pronation 4 Good Supination 5 Normal PT-OP-Q Treatments Start: 09/05/22 13:38 Freq: Status: Active Protocol: Document 09/13/22 13:05 [facility] (Rec: 09/13/22 13:43 [facility] [id number]) Cardio Equipment Upper Body Ergometer (UBE) Duration (Minutes) 5 Seat Position 9 Height 4.5 Other fwd/back Therapeutic Exercises Supine Exercises diaphramatic breathing Side bilateral Reps/Minutes 5 Sidelying Exercises abd Side left Equipment Used 3# Reps/Minutes 10 Sitting Exercises ER Sitting Exercise Name 90/90 elbow supported Side left Equipment Used 3# Reps/Minutes 15 Standing Exercises bodyblade Standing Exercise Name 1. at side 2. 90 deg flex 3. 90 deg abd Side left Equipment Used yellow body blade Reps/Minutes 30 sec ea Habd Standing Exercise Name at 90 Side bilateral Equipment Used L 1 Reps/Minutes 15 Comments mirror rows Side bilateral Equipment Used lvl 3 Reps/Minutes 15 flex Side bilateral Equipment Used L1 Reps/Minutes 15 Comments mirror ER Side bilateral Equipment Used L2 Reps/Minutes 15 IR Side left Equipment Used L3 Reps/Minutes 15 Comments towel at elbow ext Side bilateral Resistance L3 Reps/Minutes 15 Manual Therapy Treatment Soft Tissue Mobilization UT Body Location L Mobilization Type Rolling Intensity/Depth Moderate Body Position Supine pec Body Location L Mobilization Type Rolling Intensity/Depth Moderate Body Position Supine Joint Mobilizations AC Joint L Direction gapping FM PT-OP-T Assessment and Plan Start: 09/05/22 13:38 Freq: Status: Active Protocol: Document 09/13/22 13:05 [facility] (Rec: 09/13/22 13:43 [facility] [id number]) Physical Therapy Assessment Goals activities Gastroenterology Technician Goal (LTG) Pt will be able to carry all her scrapbook bags and do any cleaning/drying of hair that requires overhead reach for extended time w/o weakness or difficulty LTG Duration 11/29/22 strength Short Term Goal (STG) Pt will be indep w/HEP STG Duration 10/17/22 Gastroenterology Technician Goal (LTG) Pt will score LUE strength equal to that of RUE to show improved strength and functional ability. LTG Duration 11/29/22 Physical Therapy Plan Frequency and Duration Frequency of Treatment 1-2x/wk Duration of treatment (weeks) 12 Plan of Care Start Date 09/06/22 Plan of Care End Date 11/29/22 Next Visit Focus/Plan Next Note Type Treatment Note Next Visit Plan cont to work on scap strength & stability, manual to AC & GH for improved mechanics
--- NOTE | 2022-09-17 12:07 | PT.OTN ---
Current Diagnoses Impingement syndrome of left shoulder (09/17/22) Bursitis of left shoulder (09/17/22) Abnormal posture (09/17/22) Weakness (09/17/22) Physical Therapy Treatment Note PT-OP-A Visit Information Start: 09/05/22 13:38 Freq: Status: Active Protocol: Document 09/17/22 11:22 [facility] (Rec: 09/17/22 12:07 [facility] [id number]) Out-Patient Physical Therapy Visit Information Visit Information Visit Type Treatment Note Visit Note 12/10 Visit Start Time 11:21 Visit Stop Time 12:00 Total Visit Minutes 39 Visit Number 4 Number of FOAM CASTER Visits 0 PT-OP-B Current Condition Start: 09/05/22 13:38 Freq: Status: Active Protocol: Document 09/06/22 07:28 [facility] (Rec: 09/06/22 08:21 [facility] [id number]) Current Condition History of Current Condition Onset Date years Current Complaints L shoulder pain History of Current Condition She used to exercise a lot but stopped working out for several years and when COVID happened, she completely stopped. She thinks the shoulder pain is just arthritis from wear and tear. She noticed it years ago and every now and then she would notice sharp pinches ot her shoulder w/overhead activity. She does a lot of scrapbooking and carrying heavy boxes and that makes it ache. She saw ortho about 1 month ago and got cortizone shot and hasn't really had much pain since. She sees ortho next week. Pt has R sided breast cancer w/ radiation treatment and has been in remission for almost 4 years. Pt woud just do all the things needed, but it would just hurt after. Prior Treatments and Tests Xrays-Ortho said it showed bursitis Treatment Goals Patient/Caregiver Goals Get back to everything PT-OP-C Subjective Start: 09/05/22 13:38 Freq: Status: Active Protocol: Document 09/17/22 11:22 [facility] (Rec: 09/17/22 12:07 [facility] [id number]) OP-PT Subjective Patient Comments Patient Comments Pt noticing shoulder occasionally this weekend when lifting to carry things in/ out of house/ PT-OP-F Manual Assessment Start: 09/05/22 13:38 Freq: Status: Active Protocol: Document 09/06/22 07:28 [facility] (Rec: 09/06/22 08:21 [facility] [id number]) Manual Assessments Soft Tissue Assessment Soft Tissue Mobility Assessment mild tenderness in L biceps, infraspinatus Joint Mobility Assessment Joint Mobility Assessment humerus L slightly more ant in glenoid than R PT-OP-J Posture/Palpation/Skin Start: 09/05/22 13:38 Freq: Status: Active Protocol: Document 09/06/22 07:28 [facility] (Rec: 09/06/22 08:21 [facility] [id number]) Posture Evaluation Alcides Postural Classification System Elbow Flexion Test 2 Comments Posture Comments fwd head and some inc kyphosis PT-OP-K Range of Motion Start: 09/05/22 13:38 Freq: Status: Active Protocol: Document 09/06/22 07:28 [facility] (Rec: 09/06/22 08:21 [facility] [id number]) Shoulder Goniometric Range of Motion Shoulder Right Active Flexion 164 Extension 65 Abduction 175 External Rotation at 90 degrees 63 Abduction External Rotation at 0 degrees Abduction 62 Internal Rotation Behind Back (text) T5 Left Active Flexion 159 Extension 65 Abduction 169 External Rotation at 90 degrees 60 Abduction External Rotation at 0 degrees Abduction 73 Internal Rotation Behind Back (text) T7 PT-OP-L Special Tests Start: 09/05/22 13:38 Freq: Status: Active Protocol: Document 09/06/22 07:28 [facility] (Rec: 09/06/22 08:21 [facility] [id number]) Special Tests Shoulder Special Tests Sulcus Test Results neg Yergason's Biceps Test Results neg Speed's Biceps Test Results neg -discomfort but no change from obriens [place] Test Test Results neg-disocmofrt but no change from speeds [place] Jani Impingement Test Results neg Neer Impingement Test Results neg Empty Can Test Results neg AC Joint Compression Test Results neg Neural Special Tests- Upper Body Median Nerve Tension Test Results neg Radial Nerve Tension Test Results neg Ulnar Nerve Tension Test Results neg PT-OP-M Strength Start: 09/05/22 13:38 Freq: Status: Active Protocol: Document 09/06/22 07:28 [facility] (Rec: 09/06/22 08:21 [facility] [id number]) Shoulder Strength Shoulder Manual Muscle Testing Right Flexion 5 Normal Extension 5 Normal Abduction (C5) 5 Normal External Rotation 5 Normal Internal Rotation 5 Normal Horizontal Abduction 4+ Good+ Horizontal Adduction 5 Normal Left Flexion 4- Good- Extension 4+ Good+ Abduction (C5) 4- Good- External Rotation 4 Good Internal Rotation 4- Good- Horizontal Abduction 4+ Good+ Horizontal Adduction 4+ Good+ Comments mild discomfort w/flex Elbow/Forearm Strength Elbow and Forearm Manual Muscle Testing Right Flexion (C6) 5 Normal Extension (C7) 5 Normal Pronation 5 Normal Supination 5 Normal Left Flexion (C6) 4+ Good+ Extension (C7) 4+ Good+ Pronation 4 Good Supination 5 Normal PT-OP-Q Treatments Start: 09/05/22 13:38 Freq: Status: Active Protocol: Document 09/17/22 11:22 [facility] (Rec: 09/17/22 12:07 [facility] [id number]) Cardio Equipment Upper Body Ergometer (UBE) Duration (Minutes) 5 Seat Position 9 Height 4.5 Other fwd/back Therapeutic Exercises Supine Exercises serratus punch Side bilateral Equipment Used 3# Reps/Minutes 15 Sidelying Exercises abd Side left Equipment Used 3# Reps/Minutes 10 Sitting Exercises ER Sitting Exercise Name 90/90 elbow supported Side left Equipment Used 3# Reps/Minutes 15 Standing Exercises biceps curls Side bilateral Equipment Used 5# in each hands Reps/Minutes 15 bodyblade Standing Exercise Name 1. at side 2. 90 deg flex 3. 90 deg abd Side left Equipment Used yellow body blade Reps/Minutes 30 sec ea Habd Standing Exercise Name at 90 Side bilateral Equipment Used L 2 Reps/Minutes 15 Comments mirror rows Side bilateral Equipment Used lvl 3 Reps/Minutes 15 flex Side bilateral Equipment Used L2 Reps/Minutes 15 Comments mirror ER Side bilateral Equipment Used L2 Reps/Minutes 15 IR Side left Equipment Used L3 Reps/Minutes 15 Comments towel at elbow ext Side bilateral Resistance L3 Reps/Minutes 15 Manual Therapy Treatment Soft Tissue Mobilization post Body Location L infra Mobilization Type Strumming Intensity/Depth Moderate UT Body Location L Mobilization Type Rolling Intensity/Depth Moderate Body Position Supine pec Body Location L Mobilization Type Rolling Intensity/Depth Moderate Body Position Supine Joint Mobilizations GH Comments L inf FM seated; supine inf, post & distraciton FM PT-OP-T Assessment and Plan Start: 09/05/22 13:38 Freq: Status: Active Protocol: Document 09/17/22 11:22 [facility] (Rec: 09/17/22 12:07 [facility] [id number]) Physical Therapy Assessment Goals activities Clinical Lab Technologist Goal (LTG) Pt will be able to carry all her scrapbook bags and do any cleaning/drying of hair that requires overhead reach for extended time w/o weakness or difficulty LTG Duration 11/29/22 strength Short Term Goal (STG) Pt will be indep w/HEP STG Duration 10/17/22 Clinical Lab Technologist Goal (LTG) Pt will score LUE strength equal to that of RUE to show improved strength and functional ability. LTG Duration 11/29/22 Assessment Summary Assessment Pt still requires ccues during exercises to avoid scap elevation. She is doing well w /inc resistance w/exercises w/ o inc witt. Physical Therapy Plan Frequency and Duration Frequency of Treatment 1-2x/wk Duration of treatment (weeks) 12 Plan of Care Start Date 09/06/22 Plan of Care End Date 11/29/22 Next Visit Focus/Plan Next Note Type Treatment Note Next Visit Plan cont to work on scap strength & stability, manual to AC & GH for improved mechanics
--- NOTE | 2022-09-25 09:51 | PT.OTN ---
Current Diagnoses Impingement syndrome of left shoulder (09/25/22) Bursitis of left shoulder (09/25/22) Abnormal posture (09/25/22) Weakness (09/25/22) Physical Therapy Treatment Note PT-OP-A Visit Information Start: 09/05/22 13:38 Freq: Status: Active Protocol: Document 09/25/22 09:16 NBM (Rec: 09/25/22 09:51 [facility] [id number]) Out-Patient Physical Therapy Visit Information Visit Information Visit Type Treatment Note Visit Note 01/09 Visit Start Time 09:10 Visit Stop Time 09:50 Total Visit Minutes 40 Visit Number 5 Number of MANAGER INTEGRATED Visits 1 PT-OP-B Current Condition Start: 09/05/22 13:38 Freq: Status: Active Protocol: Document 09/06/22 07:28 [facility] (Rec: 09/06/22 08:21 [facility] [id number]) Current Condition History of Current Condition Onset Date years Current Complaints L shoulder pain History of Current Condition She used to exercise a lot but stopped working out for several years and when COVID happened, she completely stopped. She thinks the shoulder pain is just arthritis from wear and tear. She noticed it years ago and every now and then she would notice sharp pinches ot her shoulder w/overhead activity. She does a lot of scrapbooking and carrying heavy boxes and that makes it ache. She saw ortho about 1 month ago and got cortizone shot and hasn't really had much pain since. She sees ortho next week. Pt has R sided breast cancer w/ radiation treatment and has been in remission for almost 4 years. Pt woud just do all the things needed, but it would just hurt after. Prior Treatments and Tests Xrays-Ortho said it showed bursitis Treatment Goals Patient/Caregiver Goals Get back to everything PT-OP-C Subjective Start: 09/05/22 13:38 Freq: Status: Active Protocol: Document 09/25/22 09:16 NBM (Rec: 09/25/22 09:51 [facility] [id number]) OP-PT Subjective Patient Comments Patient Comments Pt was at scrapbooking retreat 4 days and is still tired from it. Pt did not do HEP over the weekend. She does ok with HEP at home. Pt states end of session she fell out of bed dreaming (no boxspring) onto L shoulder but states no pain from fall - hard part was getting back up. PT-OP-F Manual Assessment Start: 09/05/22 13:38 Freq: Status: Active Protocol: Document 09/06/22 07:28 [facility] (Rec: 09/06/22 08:21 [facility] [id number]) Manual Assessments Soft Tissue Assessment Soft Tissue Mobility Assessment mild tenderness in L biceps, infraspinatus Joint Mobility Assessment Joint Mobility Assessment humerus L slightly more ant in glenoid than R PT-OP-J Posture/Palpation/Skin Start: 09/05/22 13:38 Freq: Status: Active Protocol: Document 09/06/22 07:28 [facility] (Rec: 09/06/22 08:21 [facility] [id number]) Posture Evaluation [facility] Postural Classification System Elbow Flexion Test 2 Comments Posture Comments fwd head and some inc kyphosis PT-OP-K Range of Motion Start: 09/05/22 13:38 Freq: Status: Active Protocol: Document 09/06/22 07:28 [facility] (Rec: 09/06/22 08:21 [facility] [id number]) Shoulder Goniometric Range of Motion Shoulder Right Active Flexion 164 Extension 65 Abduction 175 External Rotation at 90 degrees 63 Abduction External Rotation at 0 degrees Abduction 62 Internal Rotation Behind Back (text) T5 Left Active Flexion 159 Extension 65 Abduction 169 External Rotation at 90 degrees 60 Abduction External Rotation at 0 degrees Abduction 73 Internal Rotation Behind Back (text) T7 PT-OP-L Special Tests Start: 09/05/22 13:38 Freq: Status: Active Protocol: Document 09/06/22 07:28 [facility] (Rec: 09/06/22 08:21 [facility] [id number]) Special Tests Shoulder Special Tests Sulcus Test Results neg Yergason's Biceps Test Results neg Speed's Biceps Test Results neg -discomfort but no change from obriens [place] Test Test Results neg-disocmofrt but no change from speeds Waller Jani Impingement Test Results neg Neer Impingement Test Results neg Empty Can Test Results neg AC Joint Compression Test Results neg Neural Special Tests- Upper Body Median Nerve Tension Test Results neg Radial Nerve Tension Test Results neg Ulnar Nerve Tension Test Results neg PT-OP-M Strength Start: 09/05/22 13:38 Freq: Status: Active Protocol: Document 09/06/22 07:28 [facility] (Rec: 09/06/22 08:21 [facility] [id number]) Shoulder Strength Shoulder Manual Muscle Testing Right Flexion 5 Normal Extension 5 Normal Abduction (C5) 5 Normal External Rotation 5 Normal Internal Rotation 5 Normal Horizontal Abduction 4+ Good+ Horizontal Adduction 5 Normal Left Flexion 4- Good- Extension 4+ Good+ Abduction (C5) 4- Good- External Rotation 4 Good Internal Rotation 4- Good- Horizontal Abduction 4+ Good+ Horizontal Adduction 4+ Good+ Comments mild discomfort w/flex Elbow/Forearm Strength Elbow and Forearm Manual Muscle Testing Right Flexion (C6) 5 Normal Extension (C7) 5 Normal Pronation 5 Normal Supination 5 Normal Left Flexion (C6) 4+ Good+ Extension (C7) 4+ Good+ Pronation 4 Good Supination 5 Normal PT-OP-Q Treatments Start: 09/05/22 13:38 Freq: Status: Active Protocol: Document 09/25/22 09:16 [facility] (Rec: 09/25/22 09:51 [facility] [id number]) Cardio Equipment Upper Body Ergometer (UBE) Duration (Minutes) 5 Seat Position 9 Height 4.5 Other fwd/back Therapeutic Exercises Standing Exercises rows Side bilateral Equipment Used lvl 3 Reps/Minutes 15 flex Side bilateral Equipment Used L3 Reps/Minutes 15 Comments form, limit flex to 90deg d/t UT overactivation ER Side bilateral Equipment Used L3 Reps/Minutes 15 Comments cue for slow eccentric IR Side left Equipment Used L3 Reps/Minutes 15 Comments towel at elbow, cued hand position ext Side bilateral Resistance L3 Reps/Minutes 15 Manual Therapy Treatment Soft Tissue Mobilization UT Body Location L Mobilization Type Rolling Intensity/Depth Moderate Body Position Supine pec Body Location L Mobilization Type Rolling Intensity/Depth Moderate Body Position Supine Comments w/ W stretch Joint Mobilizations GH Comments supine inf, post & distraciton FM PT-OP-T Assessment and Plan Start: 09/05/22 13:38 Freq: Status: Active Protocol: Document 09/25/22 09:16 [facility] (Rec: 09/25/22 09:51 [facility] [id number]) Physical Therapy Assessment Goals activities Esl Teacher Goal (LTG) Pt will be able to carry all her scrapbook bags and do any cleaning/drying of hair that requires overhead reach for extended time w/o weakness or difficulty LTG Duration 11/29/22 strength Short Term Goal (STG) Pt will be indep w/HEP STG Duration 10/17/22 Esl Teacher Goal (LTG) Pt will score LUE strength equal to that of RUE to show improved strength and functional ability. LTG Duration 11/29/22 Assessment Summary Assessment Pt requires cues for slow eccentric control with resisted shoulder exercises but demonstrates improved control. Pt tolerates increased resistance from Lv2> Lv3 Tb w/ flexion and IR resisted ex's. Physical Therapy Plan Frequency and Duration Frequency of Treatment 1-2x/wk Duration of treatment (weeks) 12 Plan of Care Start Date 09/06/22 Plan of Care End Date 11/29/22 Therapeutic Interventions Therapeutic Interventions Home Exercise Program,Joint Mobilizations,Manual Therapy, Neuromuscular Re-education, Patient/Caregiver Education, Self-Care/Home Management,Soft Tissue Mobilization,Taping, Therapeutic Activities, Therapeutic Exercises Modalities Cold Pack/Ice Massage,Hot Packs Next Visit Focus/Plan Next Note Type Treatment Note Next Visit Plan Consider pec stretches. POC:cont to work on scap strength & stability, manual to AC & GH for improved mechanics
--- NOTE | 2022-10-09 12:12 | PT.OTN ---
Current Diagnoses Impingement syndrome of left shoulder (10/09/22) Bursitis of left shoulder (10/09/22) Abnormal posture (10/09/22) Weakness (10/09/22) Physical Therapy Treatment Note PT-OP-A Visit Information Start: 09/05/22 13:38 Freq: Status: Active Protocol: Document 10/09/22 11:19 [facility] (Rec: 10/09/22 12:11 [facility] [id number]) Out-Patient Physical Therapy Visit Information Visit Information Visit Type Treatment Note Visit Note 02/09 Visit Start Time 11:21 Visit Stop Time 12:00 Total Visit Minutes 39 Visit Number 6 Number of BLUING OVEN TENDER Visits 0 PT-OP-B Current Condition Start: 09/05/22 13:38 Freq: Status: Active Protocol: Document 09/06/22 07:28 [facility] (Rec: 09/06/22 08:21 [facility] [id number]) Current Condition History of Current Condition Onset Date years Current Complaints L shoulder pain History of Current Condition She used to exercise a lot but stopped working out for several years and when COVID happened, she completely stopped. She thinks the shoulder pain is just arthritis from wear and tear. She noticed it years ago and every now and then she would notice sharp pinches ot her shoulder w/overhead activity. She does a lot of scrapbooking and carrying heavy boxes and that makes it ache. She saw ortho about 1 month ago and got cortizone shot and hasn't really had much pain since. She sees ortho next week. Pt has R sided breast cancer w/ radiation treatment and has been in remission for almost 4 years. Pt woud just do all the things needed, but it would just hurt after. Prior Treatments and Tests Xrays-Ortho said it showed bursitis Treatment Goals Patient/Caregiver Goals Get back to everything PT-OP-C Subjective Start: 09/05/22 13:38 Freq: Status: Active Protocol: Document 10/09/22 11:19 [facility] (Rec: 10/09/22 12:11 [facility] [id number]) OP-PT Subjective Patient Comments Patient Comments Pt reprots sore in L shoulder after last session. Last therapist did a lot of deep massage and that made it sore for a long time after that. PT-OP-F Manual Assessment Start: 09/05/22 13:38 Freq: Status: Active Protocol: Document 09/06/22 07:28 [facility] (Rec: 09/06/22 08:21 [facility] [id number]) Manual Assessments Soft Tissue Assessment Soft Tissue Mobility Assessment mild tenderness in L biceps, infraspinatus Joint Mobility Assessment Joint Mobility Assessment humerus L slightly more ant in glenoid than R PT-OP-J Posture/Palpation/Skin Start: 09/05/22 13:38 Freq: Status: Active Protocol: Document 09/06/22 07:28 [facility] (Rec: 09/06/22 08:21 [facility] [id number]) Posture Evaluation [facility] Postural Classification System Elbow Flexion Test 2 Comments Posture Comments fwd head and some inc kyphosis PT-OP-K Range of Motion Start: 09/05/22 13:38 Freq: Status: Active Protocol: Document 09/06/22 07:28 [facility] (Rec: 09/06/22 08:21 [facility] [id number]) Shoulder Goniometric Range of Motion Shoulder Right Active Flexion 164 Extension 65 Abduction 175 External Rotation at 90 degrees 63 Abduction External Rotation at 0 degrees Abduction 62 Internal Rotation Behind Back (text) T5 Left Active Flexion 159 Extension 65 Abduction 169 External Rotation at 90 degrees 60 Abduction External Rotation at 0 degrees Abduction 73 Internal Rotation Behind Back (text) T7 PT-OP-L Special Tests Start: 09/05/22 13:38 Freq: Status: Active Protocol: Document 09/06/22 07:28 [facility] (Rec: 09/06/22 08:21 [facility] [id number]) Special Tests Shoulder Special Tests Sulcus Test Results neg Urbanorkatty's Biceps Test Results neg Speed's Biceps Test Results neg -discomfort but no change from obriens [place] Test Test Results neg-disocmofrt but no change from speeds Waller Jani Impingement Test Results neg Neer Impingement Test Results neg Empty Can Test Results neg AC Joint Compression Test Results neg Neural Special Tests- Upper Body Median Nerve Tension Test Results neg Radial Nerve Tension Test Results neg Ulnar Nerve Tension Test Results neg PT-OP-M Strength Start: 09/05/22 13:38 Freq: Status: Active Protocol: Document 09/06/22 07:28 [facility] (Rec: 09/06/22 08:21 [facility] [id number]) Shoulder Strength Shoulder Manual Muscle Testing Right Flexion 5 Normal Extension 5 Normal Abduction (C5) 5 Normal External Rotation 5 Normal Internal Rotation 5 Normal Horizontal Abduction 4+ Good+ Horizontal Adduction 5 Normal Left Flexion 4- Good- Extension 4+ Good+ Abduction (C5) 4- Good- External Rotation 4 Good Internal Rotation 4- Good- Horizontal Abduction 4+ Good+ Horizontal Adduction 4+ Good+ Comments mild discomfort w/flex Elbow/Forearm Strength Elbow and Forearm Manual Muscle Testing Right Flexion (C6) 5 Normal Extension (C7) 5 Normal Pronation 5 Normal Supination 5 Normal Left Flexion (C6) 4+ Good+ Extension (C7) 4+ Good+ Pronation 4 Good Supination 5 Normal PT-OP-Q Treatments Start: 09/05/22 13:38 Freq: Status: Active Protocol: Document 10/09/22 11:19 [facility] (Rec: 10/09/22 12:11 [facility] [id number]) Therapeutic Exercises Supine Exercises flex Side left Reps/Minutes 15 Comments comfortable range serratus punch Side bilateral Equipment Used 3# Reps/Minutes 15 Sidelying Exercises ER Side left Equipment Used 3# Reps/Minutes 12 abd Side left Equipment Used 3# Reps/Minutes 15 Standing Exercises stretch Standing Exercise Name 1. pec corner 2. doorway w/ elbows ext Side bilateral Reps/Minutes 30 sec ea flex Side bilateral Equipment Used L3 Reps/Minutes 15 Comments form, limit flex to 90deg d/t UT overactivation ER Standing Exercise Name 90/90 Side left Equipment Used L1 Reps/Minutes 12 Comments cue for slow eccentric IR Standing Exercise Name 90/90 Side left Equipment Used L1 Reps/Minutes 12 Manual Therapy Treatment Soft Tissue Mobilization inf Body Location teres & lats L Mobilization Type Rolling Intensity/Depth Moderate Body Position Supine UT Body Location L Mobilization Type Rolling Intensity/Depth Moderate Body Position Supine Joint Mobilizations AC Joint L post scap FM GH Joint L Direction inf FM PT-OP-T Assessment and Plan Start: 09/05/22 13:38 Freq: Status: Active Protocol: Document 10/09/22 11:19 [facility] (Rec: 10/09/22 12:11 [facility] [id number]) Physical Therapy Assessment Goals activities Bulk Station Agent Goal (LTG) Pt will be able to carry all her scrapbook bags and do any cleaning/drying of hair that requires overhead reach for extended time w/o weakness or difficulty LTG Duration 11/29/22 strength Short Term Goal (STG) Pt will be indep w/HEP STG Duration 10/17/22 Bulk Station Agent Goal (LTG) Pt will score LUE strength equal to that of RUE to show improved strength and functional ability. LTG Duration 11/29/22 Assessment Summary Assessment Pt had pain w/flex prior to manaul passively and actively and abd passively and improved to no pain after manual. min cues during exercises and use of mirrror Physical Therapy Plan Frequency and Duration Frequency of Treatment 1-2x/wk Duration of treatment (weeks) 12 Plan of Care Start Date 09/06/22 Plan of Care End Date 11/29/22 Next Visit Focus/Plan Next Note Type Treatment Note Next Visit Plan cont to work on scap strength & stability, manual to AC & GH for improved mechanics
--- NOTE | 2022-10-25 09:56 | PT.OTN ---
Current Diagnoses Impingement syndrome of left shoulder (10/25/22) Bursitis of left shoulder (10/25/22) Abnormal posture (10/25/22) Weakness (10/25/22) Physical Therapy Treatment Note PT-OP-A Visit Information Start: 09/05/22 13:38 Freq: Status: Active Protocol: Document 10/25/22 09:07 [facility] (Rec: 10/25/22 09:55 [facility] [id number]) Out-Patient Physical Therapy Visit Information Visit Information Visit Type Treatment Note Visit Note 09/11 Visit Start Time 09:05 Visit Stop Time 09:45 Total Visit Minutes 40 Visit Number 7 Number of ROLL UP OPERATOR Visits 0 PT-OP-B Current Condition Start: 09/05/22 13:38 Freq: Status: Active Protocol: Document 09/06/22 07:28 [facility] (Rec: 09/06/22 08:21 [facility] [id number]) Current Condition History of Current Condition Onset Date years Current Complaints L shoulder pain History of Current Condition She used to exercise a lot but stopped working out for several years and when COVID happened, she completely stopped. She thinks the shoulder pain is just arthritis from wear and tear. She noticed it years ago and every now and then she would notice sharp pinches ot her shoulder w/overhead activity. She does a lot of scrapbooking and carrying heavy boxes and that makes it ache. She saw ortho about 1 month ago and got cortizone shot and hasn't really had much pain since. She sees ortho next week. Pt has R sided breast cancer w/ radiation treatment and has been in remission for almost 4 years. Pt woud just do all the things needed, but it would just hurt after. Prior Treatments and Tests Xrays-Ortho said it showed bursitis Treatment Goals Patient/Caregiver Goals Get back to everything PT-OP-C Subjective Start: 09/05/22 13:38 Freq: Status: Active Protocol: Document 10/25/22 09:07 [facility] (Rec: 10/25/22 09:55 [facility] [id number]) OP-PT Subjective Patient Comments Patient Comments Pt reports shoulder has been sore recently. Soreness comes and goes. I know its there. When I first got the shot and I don't feel nothing. She hasn't had the feeling of weakness suddenly where it just feels like it drops. It does get weak w/prolonged use like drying hair. PT-OP-F Manual Assessment Start: 09/05/22 13:38 Freq: Status: Active Protocol: Document 09/06/22 07:28 [facility] (Rec: 09/06/22 08:21 [facility] [id number]) Manual Assessments Soft Tissue Assessment Soft Tissue Mobility Assessment mild tenderness in L biceps, infraspinatus Joint Mobility Assessment Joint Mobility Assessment humerus L slightly more ant in glenoid than R PT-OP-J Posture/Palpation/Skin Start: 09/05/22 13:38 Freq: Status: Active Protocol: Document 09/06/22 07:28 [facility] (Rec: 09/06/22 08:21 [facility] [id number]) Posture Evaluation [facility] Postural Classification System Elbow Flexion Test 2 Comments Posture Comments fwd head and some inc kyphosis PT-OP-K Range of Motion Start: 09/05/22 13:38 Freq: Status: Active Protocol: Document 10/25/22 09:07 [facility] (Rec: 10/25/22 09:55 [facility] [id number]) Shoulder Goniometric Range of Motion Shoulder Right Active Flexion 164 Extension 65 Abduction 175 External Rotation at 90 degrees 63 Abduction External Rotation at 0 degrees Abduction 62 Internal Rotation Behind Back (text) T5 Left Active Flexion 165 Extension 65 Abduction 173 External Rotation at 90 degrees 64 Abduction External Rotation at 0 degrees Abduction 74 Internal Rotation Behind Back (text) T6 Comments some discomfort coming back down from overhead motions PT-OP-L Special Tests Start: 09/05/22 13:38 Freq: Status: Active Protocol: Document 09/06/22 07:28 [facility] (Rec: 09/06/22 08:21 [facility] [id number]) Special Tests Shoulder Special Tests Sulcus Test Results neg Yergason's Biceps Test Results neg Speed's Biceps Test Results neg -discomfort but no change from obriens [place] Test Test Results neg-disocmofrt but no change from speeds Waller Jani Impingement Test Results neg Neer Impingement Test Results neg Empty Can Test Results neg AC Joint Compression Test Results neg Neural Special Tests- Upper Body Median Nerve Tension Test Results neg Radial Nerve Tension Test Results neg Ulnar Nerve Tension Test Results neg PT-OP-M Strength Start: 09/05/22 13:38 Freq: Status: Active Protocol: Document 10/25/22 09:07 [facility] (Rec: 10/25/22 09:55 [facility] [id number]) Shoulder Strength Shoulder Manual Muscle Testing Right Flexion 5 Normal Extension 5 Normal Abduction (C5) 5 Normal External Rotation 4+ Good+ Internal Rotation 5 Normal Horizontal Abduction 5 Normal Horizontal Adduction 5 Normal Left Flexion 4+ Good+ Extension 4+ Good+ Abduction (C5) 4- Good- External Rotation 4+ Good+ Internal Rotation 4+ Good+ Horizontal Abduction 4+ Good+ Horizontal Adduction 5 Normal Comments pain w/flex and abd Elbow/Forearm Strength Elbow and Forearm Manual Muscle Testing Right Flexion (C6) 5 Normal Extension (C7) 5 Normal Pronation 5 Normal Supination 5 Normal Left Flexion (C6) 5 Normal Extension (C7) 5 Normal Pronation 4+ Good+ Supination 5 Normal PT-OP-Q Treatments Start: 09/05/22 13:38 Freq: Status: Active Protocol: Document 10/25/22 09:07 [facility] (Rec: 10/25/22 09:55 [facility] [id number]) Cardio Equipment Upper Body Ergometer (UBE) Duration (Minutes) 6 Seat Position 9 Height 4 Other fwd/back Therapeutic Exercises Supine Exercises serratus punch Side bilateral Equipment Used 3# Reps/Minutes 15 Sidelying Exercises ER Side left Equipment Used 3# Reps/Minutes 10 abd Side left Equipment Used 3# Reps/Minutes 15 Standing Exercises Habd Standing Exercise Name w/flex Side bilateral Equipment Used L 2 Reps/Minutes 10 Comments mirror ext Standing Exercise Name ext then slight abd Side bilateral Resistance L2 Reps/Minutes 15 Manual Therapy Treatment Soft Tissue Mobilization UT Body Location L Mobilization Type Rolling Intensity/Depth Moderate Body Position Supine Joint Mobilizations SC Joint sup L FM AC Joint L post scap FM PT-OP-T Assessment and Plan Start: 09/05/22 13:38 Freq: Status: Active Protocol: Document 10/25/22 09:07 [facility] (Rec: 10/25/22 09:55 [facility] [id number]) Physical Therapy Assessment Goals activities White Sugar Pan Tank Operator Goal (LTG) Pt will be able to carry all her scrapbook bags and do any cleaning/drying of hair that requires overhead reach for extended time w/o weakness or difficulty 10/25-still some weakness LTG Duration 11/29/22 strength Short Term Goal (STG) Pt will be indep w/HEP 10/25-since bothering her doing less STG Duration 10/17/22 White Sugar Pan Tank Operator Goal (LTG) Pt will score LUE strength equal to that of RUE to show improved strength and functional ability. 10/25-improved strength LTG Duration 11/29/22 Assessment Summary Assessment Pt did well with exercises w/ cues for scap movement. She was encouraged to make sure she is doing these exercises. She does have some L sided tightness still Physical Therapy Plan Frequency and Duration Frequency of Treatment 1-2x/wk Duration of treatment (weeks) 12 Plan of Care Start Date 09/06/22 Plan of Care End Date 11/29/22 Next Visit Focus/Plan Next Note Type Treatment Note Next Visit Plan cont to work on scap strength & stability, manual to AC & GH for improved mechanics
--- NOTE | 2022-10-25 17:14 | PT.OPPN ---
Current Diagnoses Impingement syndrome of left shoulder (11/07/22) Bursitis of left shoulder (11/07/22) Abnormal posture (11/07/22) Weakness (11/07/22) Physical Therapy Progress Note PT-OP-A Visit Information Start: 09/05/22 13:38 Freq: Status: Active Protocol: Document 10/25/22 09:07 [facility] (Rec: 10/25/22 09:55 [facility] [id number]) Out-Patient Physical Therapy Visit Information Visit Information Visit Type Treatment Note Visit Note 09/11 Visit Start Time 09:05 Visit Stop Time 09:45 Total Visit Minutes 40 Visit Number 7 Number of BOX SEALING INSPECTOR Visits 0 PT-OP-B Current Condition Start: 09/05/22 13:38 Freq: Status: Active Protocol: Document 09/06/22 07:28 [facility] (Rec: 09/06/22 08:21 [facility] [id number]) Current Condition History of Current Condition Onset Date years Current Complaints L shoulder pain History of Current Condition She used to exercise a lot but stopped working out for several years and when COVID happened, she completely stopped. She thinks the shoulder pain is just arthritis from wear and tear. She noticed it years ago and every now and then she would notice sharp pinches ot her shoulder w/overhead activity. She does a lot of scrapbooking and carrying heavy boxes and that makes it ache. She saw ortho about 1 month ago and got cortizone shot and hasn't really had much pain since. She sees ortho next week. Pt has R sided breast cancer w/ radiation treatment and has been in remission for almost 4 years. Pt woud just do all the things needed, but it would just hurt after. Prior Treatments and Tests Xrays-Ortho said it showed bursitis Treatment Goals Patient/Caregiver Goals Get back to everything PT-OP-C Subjective Start: 09/05/22 13:38 Freq: Status: Active Protocol: Document 10/25/22 09:07 [facility] (Rec: 10/25/22 09:55 [facility] [id number]) OP-PT Subjective Patient Comments Patient Comments Pt reports shoulder has been sore recently. Soreness comes and goes. I know its there. When I first got the shot and I don't feel nothing. She hasn't had the feeling of weakness suddenly where it just feels like it drops. It does get weak w/prolonged use like drying hair. PT-OP-F Manual Assessment Start: 09/05/22 13:38 Freq: Status: Active Protocol: Document 09/06/22 07:28 [facility] (Rec: 09/06/22 08:21 [facility] [id number]) Manual Assessments Soft Tissue Assessment Soft Tissue Mobility Assessment mild tenderness in L biceps, infraspinatus Joint Mobility Assessment Joint Mobility Assessment humerus L slightly more ant in glenoid than R PT-OP-J Posture/Palpation/Skin Start: 09/05/22 13:38 Freq: Status: Active Protocol: Document 09/06/22 07:28 [facility] (Rec: 09/06/22 08:21 [facility] [id number]) Posture Evaluation Alcides Postural Classification System Elbow Flexion Test 2 Comments Posture Comments fwd head and some inc kyphosis PT-OP-K Range of Motion Start: 09/05/22 13:38 Freq: Status: Active Protocol: Document 10/25/22 09:07 [facility] (Rec: 10/25/22 09:55 [facility] [id number]) Shoulder Goniometric Range of Motion Shoulder Measured in Degrees Right Active Flexion 164 Extension 65 Abduction 175 External Rotation at 90 degrees 63 Abduction External Rotation at 0 degrees Abduction 62 Internal Rotation Behind Back (text) T5 Left Active Flexion 165 Extension 65 Abduction 173 External Rotation at 90 degrees 64 Abduction External Rotation at 0 degrees Abduction 74 Internal Rotation Behind Back (text) T6 Comments some discomfort coming back down from overhead motions PT-OP-L Special Tests Start: 09/05/22 13:38 Freq: Status: Active Protocol: Document 09/06/22 07:28 [facility] (Rec: 09/06/22 08:21 [facility] [id number]) Special Tests Shoulder Special Tests Sulcus Test Results neg Yergason's Biceps Test Results neg Speed's Biceps Test Results neg -discomfort but no change from obriens [place] Test Test Results neg-disocmofrt but no change from speeds Waller Jani Impingement Test Results neg Neer Impingement Test Results neg Empty Can Test Results neg AC Joint Compression Test Results neg Neural Special Tests- Upper Body Median Nerve Tension Test Results neg Radial Nerve Tension Test Results neg Ulnar Nerve Tension Test Results neg PT-OP-M Strength Start: 09/05/22 13:38 Freq: Status: Active Protocol: Document 10/25/22 09:07 [facility] (Rec: 10/25/22 09:55 [facility] [id number]) Shoulder Strength Shoulder Manual Muscle Testing Right Flexion 5 Normal Extension 5 Normal Abduction (C5) 5 Normal External Rotation 4+ Good+ Internal Rotation 5 Normal Horizontal Abduction 5 Normal Horizontal Adduction 5 Normal Left Flexion 4+ Good+ Extension 4+ Good+ Abduction (C5) 4- Good- External Rotation 4+ Good+ Internal Rotation 4+ Good+ Horizontal Abduction 4+ Good+ Horizontal Adduction 5 Normal Comments pain w/flex and abd Elbow/Forearm Strength Elbow and Forearm Manual Muscle Testing Right Flexion (C6) 5 Normal Extension (C7) 5 Normal Pronation 5 Normal Supination 5 Normal Left Flexion (C6) 5 Normal Extension (C7) 5 Normal Pronation 4+ Good+ Supination 5 Normal PT-OP-T Assessment and Plan Start: 09/05/22 13:38 Freq: Status: Active Protocol: Document 10/25/22 09:07 [facility] (Rec: 10/25/22 09:55 [facility] [id number]) Physical Therapy Assessment Goals activities Senior Living Goal (LTG) Pt will be able to carry all her scrapbook bags and do any cleaning/drying of hair that requires overhead reach for extended time w/o weakness or difficulty 10/25-still some weakness LTG Duration 11/29/22 strength Short Term Goal (STG) Pt will be indep w/HEP 10/25-since bothering her doing less STG Duration 10/17/22 Senior Living Goal (LTG) Pt will score LUE strength equal to that of RUE to show improved strength and functional ability. 10/25-improved strength LTG Duration 11/29/22 Assessment Summary Assessment Pt did well with exercises w/ cues for scap movement. She was encouraged to make sure she is doing these exercises. She does have some L sided tightness still Physical Therapy Plan Frequency and Duration Frequency of Treatment 1-2x/wk Duration of treatment (weeks) 12 Plan of Care Start Date 09/06/22 Plan of Care End Date 11/29/22 Next Visit Focus/Plan Next Note Type Treatment Note Next Visit Plan cont to work on scap strength & stability, manual to AC & GH for improved mechanics
--- NOTE | 2022-11-07 09:47 | PT.OTN ---
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 She thinks the shoulder pain is just arthritis from wear and tear. She noticed it years ago and every now and then she would notice sharp pinches ot her shoulder w/overhead activity. She does a lot of scrapbooking and carrying heavy boxes and that makes it ache. She saw ortho about 1 month ago and got cortizone shot and hasn't really had much pain since. She sees ortho next week. Pt has R sided breast cancer w/ radiation treatment and has been in remission for almost 4 years. Pt woud just do all the things needed, but it would just hurt after. Prior Treatments and Tests Xrays-Ortho said it showed bursitis Treatment Goals Patient/Caregiver Goals Get back to everything PT-OP-C Subjective Start: 09/05/22 13:38 Freq: Status: Active Protocol: Document 11/07/22 09:13 [facility] (Rec: 11/07/22 09:47 [facility] [id number]) OP-PT Subjective Patient Comments Patient Comments pt reports getting MRI as shoulder still hurts when reaching and sometimes even when at rest. PT-OP-F Manual Assessment Start: 09/05/22 13:38 Freq: Status: Active Protocol: Document 09/06/22 07:28 [facility] (Rec: 09/06/22 08:21 [facility] [id number]) Manual Assessments Soft Tissue Assessment Soft Tissue Mobility Assessment mild tenderness in L biceps, infraspinatus Joint Mobility Assessment Joint Mobility Assessment humerus L slightly more ant in glenoid than R PT-OP-J Posture/Palpation/Skin Start: 09/05/22 13:38 Freq: Status: Active Protocol: Document 09/06/22 07:28 [facility] (Rec: 09/06/22 08:21 [facility] [id number]) Posture Evaluation Alcides Postural Classification System Elbow Flexion Test 2 Comments Posture Comments fwd head and some inc kyphosis PT-OP-K Range of Motion Start: 09/05/22 13:38 Freq: Status: Active Protocol: Document 10/25/22 09:07 [facility] (Rec: 10/25/22 09:55 [facility] [id number]) Shoulder Goniometric Range of Motion Shoulder Right Active Flexion 164 Extension 65 Abduction 175 External Rotation at 90 degrees 63 Abduction External Rotation at 0 degrees Abduction 62 Internal Rotation Behind Back (text) T5 Left Active Flexion 165 Extension 65 Abduction 173 External Rotation at 90 degrees 64 Abduction External Rotation at 0 degrees Abduction 74 Internal Rotation Behind Back (text) T6 Comments some discomfort coming back down from overhead motions PT-OP-L Special Tests Start: 09/05/22 13:38 Freq: Status: Active Protocol: Document 09/06/22 07:28 [facility] (Rec: 09/06/22 08:21 [facility] [id number]) Special Tests Shoulder Special Tests Sulcus Test Results neg Yergason's Biceps Test Results neg Speed's Biceps Test Results neg -discomfort but no change from obriens [place] Test Test Results neg-disocmofrt but no change from speeds Waller Jani Impingement Test Results neg Neer Impingement Test Results neg Empty Can Test Results neg AC Joint Compression Test Results neg Neural Special Tests- Upper Body Median Nerve Tension Test Results neg Radial Nerve Tension Test Results neg Ulnar Nerve Tension Test Results neg PT-OP-M Strength Start: 09/05/22 13:38 Freq: Status: Active Protocol: Document 10/25/22 09:07 [facility] (Rec: 10/25/22 09:55 [facility] [id number]) Shoulder Strength Shoulder Manual Muscle Testing Right Flexion 5 Normal Extension 5 Normal Abduction (C5) 5 Normal External Rotation 4+ Good+ Internal Rotation 5 Normal Horizontal Abduction 5 Normal Horizontal Adduction 5 Normal Left Flexion 4+ Good+ Extension 4+ Good+ Abduction (C5) 4- Good- External Rotation 4+ Good+ Internal Rotation 4+ Good+ Horizontal Abduction 4+ Good+ Horizontal Adduction 5 Normal Comments pain w/flex and abd Elbow/Forearm Strength Elbow and Forearm Manual Muscle Testing Right Flexion (C6) 5 Normal Extension (C7) 5 Normal Pronation 5 Normal Supination 5 Normal Left Flexion (C6) 5 Normal Extension (C7) 5 Normal Pronation 4+ Good+ Supination 5 Normal PT-OP-Q Treatments Start: 09/05/22 13:38 Freq: Status: Active Protocol: Document 11/07/22 09:13 [facility] (Rec: 11/07/22 09:47 [facility] [id number]) Cardio Equipment Upper Body Ergometer (UBE) Duration (Minutes) 5 Seat Position 9 Height 4 Other fwd/back Therapeutic Exercises Supine Exercises serratus punch Side bilateral Equipment Used 3# Reps/Minutes 15 Sidelying Exercises ER Side left Equipment Used 2# Reps/Minutes 10 abd Side left Equipment Used 2# Reps/Minutes 15 Standing Exercises Habd Standing Exercise Name w/flex Side bilateral Equipment Used L 2 Reps/Minutes 10 Comments mirror ext Standing Exercise Name 1.ext then slight abd 2.Ext Side bilateral Resistance 1.L2 2. L3 Reps/Minutes 12 ea Manual Therapy Treatment Joint Mobilizations SC Joint L inf & AP FM AC Joint L post scap FM GH Joint L Direction distraction, post glide and translation, lat glide FM Comments manual faciliation afer PT-OP-T Assessment and Plan Start: 09/05/22 13:38 Freq: Status: Active Protocol: Document 11/07/22 09:13 [facility] (Rec: 11/07/22 09:47 [facility] [id number]) Physical Therapy Assessment Goals activities Half-Way Goal (LTG) Pt will be able to carry all her scrapbook bags and do any cleaning/drying of hair that requires overhead reach for extended time w/o weakness or difficulty 10/25-still some weakness LTG Duration 11/29/22 strength Short Term Goal (STG) Pt will be indep w/HEP 10/25-since bothering her doing less STG Duration 10/17/22 Non Linear Editor Goal (LTG) Pt will score LUE strength equal to that of RUE to show improved strength and functional ability. 10/25-improved strength LTG Duration 11/29/22 Assessment Summary Assessment Some cueing needed w/exercises and adjusted weights to avoid pain. Pt still requires cues for scap mechanics. She had improved ROM w/manual jt mobs. Physical Therapy Plan Frequency and Duration Frequency of Treatment 1-2x/wk Duration of treatment (weeks) 12 Plan of Care Start Date 09/06/22 Plan of Care End Date 11/29/22 Next Visit Focus/Plan Next Note Type Treatment Note Next Visit Plan cont to work on scap strength & stability, manual to AC & GH for improved mechanics
--- NOTE | 2022-11-12 09:57 | PT.OPDS ---
Current Diagnoses Impingement syndrome of left shoulder (11/07/22) Bursitis of left shoulder (11/07/22) Abnormal posture (11/07/22) Weakness (11/07/22) Visit Care Team Role Provider Type Hugo Merchant MD Family Provider Physician Primary Care Provider Specialty: Internal Medicine Address: [address] [place] [address], [facility] [address], [place], [address] Email: [email or web address] Stephan Guardado MD Attending Provider Physician Referring Provider Specialty: Orthopedics Orthopedic Surgery Address: [address] [place] [address], [id number] Email: [email or web address] Visit Number Visit Number 8 Discharge Summary PT-OP-B Current Condition Start: 09/05/22 13:38 Freq: Status: Active Protocol: Document 09/06/22 07:28 [facility] (Rec: 09/06/22 08:21 [facility] [id number]) Current Condition History of Current Condition Onset Date years Current Complaints L shoulder pain History of Current Condition She used to exercise a lot but stopped working out for several years and when COVID happened, she completely stopped. She thinks the shoulder pain is just arthritis from wear and tear. She noticed it years ago and every now and then she would notice sharp pinches ot her shoulder w/overhead activity. She does a lot of scrapbooking and carrying heavy boxes and that makes it ache. She saw ortho about 1 month ago and got cortizone shot and hasn't really had much pain since. She sees ortho next week. Pt has R sided breast cancer w/ radiation treatment and has been in remission for almost 4 years. Pt woud just do all the things needed, but it would just hurt after. Prior Treatments and Tests Xrays-Ortho said it showed bursitis Treatment Goals Patient/Caregiver Goals Get back to everything PT-OP-C Subjective Start: 09/05/22 13:38 Freq: Status: Active Protocol: Document 11/07/22 09:13 [facility] (Rec: 11/07/22 09:47 [facility] [id number]) OP-PT Subjective Patient Comments Patient Comments pt reports getting MRI as shoulder still hurts when reaching and sometimes even when at rest. PT-OP-F Manual Assessment Start: 09/05/22 13:38 Freq: Status: Active Protocol: Document 09/06/22 07:28 [facility] (Rec: 09/06/22 08:21 [facility] [id number]) Manual Assessments Soft Tissue Assessment Soft Tissue Mobility Assessment mild tenderness in L biceps, infraspinatus Joint Mobility Assessment Joint Mobility Assessment humerus L slightly more ant in glenoid than R PT-OP-J Posture/Palpation/Skin Start: 09/05/22 13:38 Freq: Status: Active Protocol: Document 09/06/22 07:28 [facility] (Rec: 09/06/22 08:21 [facility] [id number]) Posture Evaluation Alcides Postural Classification System Elbow Flexion Test 2 Comments Posture Comments fwd head and some inc kyphosis PT-OP-K Range of Motion Start: 09/05/22 13:38 Freq: Status: Active Protocol: Document 10/25/22 09:07 [facility] (Rec: 10/25/22 09:55 [facility] [id number]) Shoulder Goniometric Range of Motion Shoulder Right Active Flexion 164 Extension 65 Abduction 175 External Rotation at 90 degrees 63 Abduction External Rotation at 0 degrees Abduction 62 Internal Rotation Behind Back (text) T5 Left Active Flexion 165 Extension 65 Abduction 173 External Rotation at 90 degrees 64 Abduction External Rotation at 0 degrees Abduction 74 Internal Rotation Behind Back (text) T6 Comments some discomfort coming back down from overhead motions PT-OP-L Special Tests Start: 09/05/22 13:38 Freq: Status: Active Protocol: Document 09/06/22 07:28 [facility] (Rec: 09/06/22 08:21 [facility] [id number]) Special Tests Shoulder Special Tests Sulcus Test Results neg Yergason's Biceps Test Results neg Speed's Biceps Test Results neg -discomfort but no change from obriens [place] Test Test Results neg-disocmofrt but no change from speeds Waller Jani Impingement Test Results neg Neer Impingement Test Results neg Empty Can Test Results neg AC Joint Compression Test Results neg Neural Special Tests- Upper Body Median Nerve Tension Test Results neg Radial Nerve Tension Test Results neg Ulnar Nerve Tension Test Results neg PT-OP-M Strength Start: 09/05/22 13:38 Freq: Status: Active Protocol: Document 10/25/22 09:07 [facility] (Rec: 10/25/22 09:55 [facility] [id number]) Shoulder Strength Shoulder Manual Muscle Testing Right Flexion 5 Normal Extension 5 Normal Abduction (C5) 5 Normal External Rotation 4+ Good+ Internal Rotation 5 Normal Horizontal Abduction 5 Normal Horizontal Adduction 5 Normal Left Flexion 4+ Good+ Extension 4+ Good+ Abduction (C5) 4- Good- External Rotation 4+ Good+ Internal Rotation 4+ Good+ Horizontal Abduction 4+ Good+ Horizontal Adduction 5 Normal Comments pain w/flex and abd Elbow/Forearm Strength Elbow and Forearm Manual Muscle Testing Right Flexion (C6) 5 Normal Extension (C7) 5 Normal Pronation 5 Normal Supination 5 Normal Left Flexion (C6) 5 Normal Extension (C7) 5 Normal Pronation 4+ Good+ Supination 5 Normal PT-OP-T Assessment and Plan Start: 09/05/22 13:38 Freq: Status: Active Protocol: Document 11/12/22 09:55 [facility] (Rec: 11/12/22 09:56 [facility] [id number]) Physical Therapy Assessment Goals activities Group Home Goal (LTG) Pt will be able to carry all her scrapbook bags and do any cleaning/drying of hair that requires overhead reach for extended time w/o weakness or difficulty 10/25-still some weakness LTG Duration 11/29/22 strength Short Term Goal (STG) Pt will be indep w/HEP 10/25-since bothering her doing less STG Duration 10/17/22 Machine Stemmer Goal (LTG) Pt will score LUE strength equal to that of RUE to show improved strength and functional ability. 10/25-improved strength LTG Duration 11/29/22 Assessment Summary Assessment Patient called to cancel all remaining visits. She was just made aware of her copay for these visits and states that it is to expensive to continue . She is doing well with HEP at last visit. DC at this time to HEP d/t pt request Physical Therapy Plan Discharge Physical Therapy Discharge Reasons Patient Request
== END 2022-11-12 12:32 | disposition home or self-care (01) ==
LOC: PHYS 09:00
PROVIDERS: Absent Provider Internal Medicine; Family Provider Internal Medicine; PCP Internal Medicine; Referring Provider Orthopaedic Surgery; Visit Provider Orthopaedic Surgery
DX: M75.42 Impingement syndrome of left shoulder (principal); M75.52 Bursitis of left shoulder; R53.1 Weakness; R29.3 Abnormal posture
CPT/HCPCS: 97110; 97140; 97162

== ENCOUNTER → 2022-11-07 13:31 | Outpatient (CLI) | payer OTHER, SELFPAY ==
--- NOTE | 2022-11-07 | DI.MRI.S_ITS ---
PROCEDURE: MR SHOULDER LT WO CON INDICATIONS: Impingement syndrome of left shoulder TECHNIQUE: Noncontrast oblique coronal T2 fast spin echo with fat saturation, oblique sagittal T1 spin echo and T2 fast spin echo with fat saturation, axial T1 spin echo and T2 fast spin echo with fat saturation through the shoulder. COMPARISON: None. FINDINGS: Image quality: Excellent. Rotator cuff: There is full-thickness tearing of the majority of the supraspinatus tendon from its distal insertion measuring 0.8 cm in anterior-posterior dimension with proximal tendon retraction measuring up to 3.2 cm. There is high-grade partial articular sided tearing of the adjacent posterior supraspinatus tendon and majority of the infraspinatus tendon with delamination and retraction of articular sided fibers measuring approximately 3 cm. Teres minor tendon remains intact. There is severe subscapularis tendinosis and suspected low-grade intrasubstance tearing at the distal insertion. No significant rotator cuff muscle atrophy is seen. Bones and bursae: No acute trabecular bone injury or fracture. Chronic traction cystic changes are seen at the posterosuperior humeral head and the greater and lesser tuberosities near the rotator cuff tendon insertions. There is mild partial-thickness cartilage irregularity in the glenohumeral joint. Moderate to severe degenerative changes are seen in the acromioclavicular joint with subchondral cystic changes and marginal osteophytes. There is a small amount of fluid in the subacromial/subdeltoid bursa, which communicates with a moderate glenohumeral joint effusion. Scattered areas of mild synovial hypertrophy in bursal thickening are noted. Capsule and soft tissues: There is diffuse labral degeneration and chronic degenerative tearing of the superior labrum. Proximal biceps long head tendon demonstrates severe tendinosis and partial intrasubstance tearing. There is effacement of the normal fat signal in the rotator interval. Glenohumeral ligaments are intact. IMPRESSION: 1. Full-thickness tearing of the anterior to mid supraspinatus tendon from the distal footprint measuring 0.8 cm in anterior-posterior dimension with proximal tendon retraction measuring up to 3.2 cm. High-grade partial articular sided tearing is seen at the posterior supraspinatus tendon and the majority of the infraspinatus tendon with delamination and retraction of articular sided fibers measuring approximately 3 cm. 2. Severe tendinosis and suspected low-grade intrasubstance tearing of the distal subscapularis tendon. 3. Partial intrasubstance tearing of the proximal biceps long head tendon superimposed on severe tendinosis. 4. Diffuse labral degeneration and mild chronic degenerative tearing of the superior labrum. Mild grade 2 chondromalacia in the glenohumeral joint. 5. 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 6. Moderate glenohumeral effusion communicates with a small subacromial/subdeltoid bursal effusion with mild scattered synovial hypertrophy and bursal thickening. Approved by: Blane Cornell M.D. on 11/08/2022 at 9:12
== END ==
PROVIDERS: Family Provider Internal Medicine; PCP Internal Medicine; Referring Provider Orthopaedic Surgery; Visit Provider Orthopaedic Surgery
DX: M75.42 Impingement syndrome of left shoulder (principal); M75.122 Complete rotator cuff tear or rupture of left shoulder, not specified as traumatic; M19.012 Primary osteoarthritis, left shoulder; S43.492A Other sprain of left shoulder joint, initial encounter; M94.212 Chondromalacia, left shoulder
CPT/HCPCS: 73221

== ENCOUNTER → 2023-03-04 10:24 | Outpatient (CLI) | payer OTHER, SELFPAY ==
[2023-03-04 11:37] LABS: Add Manual Diff / Slide Review NO; Basophils Absolute Auto 0 /uL (0-100); Basophils Percent Auto 0.7 % (0-2); Eosinophils Absolute Auto 200 /uL (0-450); Eosinophils Percent Auto 3.3 % (2-4); Hemoglobin 11.7 g/dL (12.0-16.0); Lymphocytes Absolute Auto 1000 /uL (1100-4500); Lymphocytes Percent Auto 14.8 % (25-40); Mean Corpuscular HGB Conc 34.5 % (30-36); Mean Corpuscular Hemoglobin 31.8 PG (26-34); Mean Corpuscular Volume 92.2 fL (80-100); Monocytes Absolute Auto 400 /uL (0-900); Monocytes Percent Auto 6.5 % (3-14); Neutrophils Absolute Auto 5000 /uL (1500-7000); Neutrophils Percent Auto 74.7 % (50-75); Platelet Count 237 X10^3/uL (150-400); Red Blood Cell Count 3.68 X10^6/uL (4.0-5.2); Red Cell Distribution Width 13.9 % (11.6-14.8); White Blood Cell Count 6.8 X10^3/uL (4.5-11.0)
[2023-03-04 12:17] LABS: Alanine Aminotransferase 22 IU/L (<35); Albumin 4.1 g/dL (3.5-5.0); Albumin Globulin Ratio 1.4 (1.0-2.8); Alkaline Phosphatase 138 U/L (38-126); Aspartate Aminotransferase 23 IU/L (14-36); BUN Creatinine Ratio 16.7 (6-22); Bilirubin Total 0.4 mg/dL (0.2-1.3); Blood Urea Nitrogen 18 mg/dL (7-17); Calcium 9.4 mg/dL (8.4-10.2); Carbon Dioxide 30 mmol/L (22-32); Chloride 102 mmol/L (98-107); Cholesterol 161 mg/dL (140-199); Estimated Glomerular Filt Rate 51 mL/min (>60); Globulin 2.9 g/dL (1.7-4.1); Glucose 100 mg/dL (80-110); HDL Cholesterol 83 mg/dL (40-60); HEMOLYSIS < 15 (0-50); LDL Cholesterol Calculated 64 mg/dL (<100); Sodium 140 mmol/L (137-145); Triglycerides 71 mg/dL (35-150)
== END ==
PROVIDERS: Family Provider Internal Medicine; PCP Internal Medicine; Referring Provider Internal Medicine; Visit Provider Internal Medicine
DX: I10 Essential (primary) hypertension (principal); I27.20 Pulmonary hypertension, unspecified; I50.9 Heart failure, unspecified; N18.30 Chronic kidney disease, stage 3 unspecified
CPT/HCPCS: 36415; 80053; 80061; 85025

== ENCOUNTER → 2023-06-24 11:52 | Outpatient (CLI) | payer OTHER, SELFPAY ==
[2023-06-24 13:37] LABS: Alanine Aminotransferase 22 IU/L (<35); Albumin 4.3 g/dL (3.5-5.0); Albumin Globulin Ratio 1.5 (1.0-2.8); Alkaline Phosphatase 127 U/L (38-126); Aspartate Aminotransferase 27 IU/L (14-36); Bilirubin Total 0.5 mg/dL (0.2-1.3); Blood Urea Nitrogen 16 mg/dL (7-17); Calcium 9.8 mg/dL (8.4-10.2); Carbon Dioxide 28 mmol/L (22-32); Chloride 103 mmol/L (98-107); Cholesterol 153 mg/dL (140-199); Estimated Glomerular Filt Rate 51 mL/min (>60); Globulin 2.9 g/dL (1.7-4.1); Glucose 98 mg/dL (80-110); HDL Cholesterol 85 mg/dL (40-60); HEMOLYSIS < 15 (0-50); LDL Cholesterol Calculated 50 mg/dL (<100); Potassium 3.8 mmol/L (3.4-5.1); Sodium 140 mmol/L (137-145); Total Protein 7.2 g/dL (6.3-8.2); Triglycerides 89 mg/dL (35-150)
== END ==
PROVIDERS: Family Provider Internal Medicine; PCP Internal Medicine; Referring Provider Nurse Practitioner; Visit Provider Nurse Practitioner
DX: I10 Essential (primary) hypertension (principal); E78.5 Hyperlipidemia, unspecified
CPT/HCPCS: 36415; 80053; 80061

== ENCOUNTER → 2023-09-26 08:03 | Outpatient (CLI) | payer OTHER, SELFPAY ==
--- NOTE | 2023-09-26 08:04 | DI.MG.S_ITS ---
BILATERAL DIGITAL SCREENING MAMMOGRAM 3D/2D WITH CAD POST LUMPECTOMY: 09/26/2023 CLINICAL: Routine screening. Personal history of right breast cancer. Comparison is made to exams dated: 09/24/2022 mammogram, 09/20/2021 mammogram, and 08/25/2020 mammogram - [facility]. There are scattered areas of fibroglandular density in both breasts (category b / 25%-50% glandular tissue). Current study was also evaluated with a Computer Aided Detection (CAD) system. There are stable benign calcifications in the left breast. There also are stable benign vascular calcifications in both breasts. Additionally, there are benign post operative findings in the right breast. No significant masses, calcifications, or other findings are seen in either breast. There has been no significant interval change. IMPRESSION: BENIGN There is no mammographic evidence of malignancy. A 1 year screening mammogram is recommended. This exam was interpreted at Station ID: [id number]. NOTE: For mammograms, a report in lay terms will be sent to the patient. Approximately 15% of breast malignancies will not be visualized mammographically. In the management of a palpable breast mass, a negative mammogram must not discourage biopsy of a clinically suspicious lesion. Electronically Signed By: Lebron rciks/prudencio:09/26/2023 12:44:34 letter sent: Normal Exam ACR BI-RADS Category 2: Benign Finding(s) 3349F
== END ==
LOC: MAMMO 08:04
PROVIDERS: Family Provider Internal Medicine; PCP Internal Medicine; Referring Provider Internal Medicine; Visit Provider Internal Medicine
DX: Z12.31 Encounter for screening mammogram for malignant neoplasm of breast (principal); Z85.3 Personal history of malignant neoplasm of breast; R92.323 Mammographic fibroglandular density, bilateral breasts
CPT/HCPCS: 77063; 77067

== ENCOUNTER → 2023-10-23 12:32 | Outpatient (CLI) | payer OTHER, SELFPAY ==
--- NOTE | 2023-10-23 | DI.CT.S_ITS ---
PROCEDURE: CT CHEST WO CON INDICATIONS: SHORTNESS OF BREATH TECHNIQUE: Noncontrast 5 mm thick sections acquired from the pulmonary apices to the posterior costophrenic angles. 1 mm lung window, 5 mm thick coronal and sagittal and 7 mm axial MIP reformats were then acquired. For radiation dose reduction, the following was used: automated exposure control, adjustment of mA and/or kV according to patient size. COMPARISON: None. FINDINGS: Image quality: Diagnostic. Lower Neck: No enlarged lymph nodes. Thyroid: No thyroid nodules which require sonographic follow up, per consensus guidelines. Axillae: No enlarged lymph nodes. Chest Wall: Right breast surgery. Bones: Unremarkable. Lungs and Pleura: No pneumothorax or pleural effusions. 3-4 millimeter solid nodule, posterior left upper lobe (series 3, image 61). Heart: Heart size is mildly enlarged. No pericardial effusion. Two vessel coronary calcifications. Thoracic Vessels: The aorta and pulmonary arteries demonstrate normal size. Mediastinum and Anju: No enlarged lymph nodes. Esophagus: No wall thickening. Small hiatal hernia. Upper Abdomen: Cholelithiasis. IMPRESSION: No findings to explain the patient's shortness of breath. 3-4 millimeter solid nodule in the left upper lobe, indeterminate in the setting of malignancy. Dictated by: Jaxon Mosley M.D. on 10/23/2023 at 14:04 Approved by: Jaxon Mosley M.D. on 10/23/2023 at 14:09
== END ==
LOC: CT 12:33
PROVIDERS: Family Provider Internal Medicine; PCP Internal Medicine; Referring Provider Internal Medicine Hematology & Oncology; Visit Provider Internal Medicine Hematology & Oncology
DX: C50.411 Malignant neoplasm of upper-outer quadrant of right female breast (principal); R91.1 Solitary pulmonary nodule; R06.02 Shortness of breath; K44.9 Diaphragmatic hernia without obstruction or gangrene; K80.20 Calculus of gallbladder without cholecystitis without obstruction; I51.7 Cardiomegaly; I25.10 Atherosclerotic heart disease of native coronary artery without angina pectoris; Z17.0 Estrogen receptor positive status [ER+]
CPT/HCPCS: 71250

== ENCOUNTER → 2023-11-06 09:39 | Outpatient (CLI) | payer OTHER, SELFPAY ==
--- NOTE | 2023-11-06 09:42 | DI.RAD.S_ITS ---
Bone Density Report Name: LUIS ANTONIO BOYLE Age: 83 Sex: Female Ethnicity: White Date of : 1940 Indication: postmenopausal; screening for osteoporosis; Referring Provider: CORNELIA BRITTON Study: Bone densitometry was performed. Exam Date: November 06, 2023 Accession number: [id number] Bone Density: Region BMD T-score Z-score Classification AP Spine(L1-L4) 1.206 1.4 4.3 Normal Femoral Neck (Left) 0.782 -0.6 1.9 Normal Total Hip (Left) 0.836 -0.9 1.5 Normal Femoral Neck (Right) 0.788 -0.5 2.0 Normal Total Hip (Right) 0.844 -0.8 1.5 Normal Total Hip Mean 0.840 -0.9 1.5 Normal Total Forearm (Left) 0.463 -2.2 Osteopenia 1/3 Forearm (Left) 0.560 -2.2 Osteopenia UD Forearm (Left) 0.337 -1.8 Osteopenia World Health Organization criteria for BMD impression classify patients as: Normal (T-score at or above -1.0), Osteopenia (T-score between -1.0 and -2.5), or Osteoporosis (T-score at or below -2.5). 10-year Fracture Risk: FRAX not reported because: All T-scores for Spine Total, Hip Total, Femoral Neck at or above -1.0 Previous Exams: -- Region Exam Age BMD T-score BMD Change BMD Change Date g/cm2 vs Baseline vs Previous -- AP Spine (L1-L4) 11/06/2023 83 1.206 1.4 -0.093 (-7.1%)# 0.009 (0.8%)# 11/02/2022 82 1.197 1.4 -0.102 (-7.8%)# -0.102 (-7.8%)# 01/02/2019 78 1.298 2.3 Total Hip(Left) 11/06/2023 83 0.836 -0.9 -0.064 (-7.1%)# -0.026 (-3.0%)# 11/02/2022 82 0.862 -0.7 -0.038 (-4.2%)# -0.038 (-4.2%)# 01/02/2019 78 0.900 -0.3 Total Hip(Right) 11/06/2023 83 0.844 -0.8 -0.053 (-5.9%)# -0.001 (-0.1%)# 11/02/2022 82 0.845 -0.8 -0.052 (-5.8%)# -0.052 (-5.8%)# 01/02/2019 78 0.897 -0.4 -- *Denotes significance at 95% confidence level, LSC for AP Spine = 0.022 g/cm2, LSC for Total Hip = 0.027 g/cm2 # Denotes dissimilar scan types or analysis methods Impression: The patient has normal bone mass. No significant bone loss was observed. Discussion: BONE DENSITY IS ABOVE THE MINIMUM DESIRABLE LEVEL AT ALL SKELETAL SITES TESTED. This patient's bone mineral density is above the minimum desirable level (T-score -1.0 or better) at all sites measured. The patient should follow a healthful lifestyle (good nutrition with adequate calcium and vitamin D, and appropriate weight-bearing exercise). Follow-Up: Consider repeating this study in 5 years or sooner if there is some new clinical indication. Reported by: MARII MARTINS M.D. on 11/06/2023 5:42:00 PM.
== END ==
LOC: RAD 09:40
PROVIDERS: PCP Internal Medicine; Referring Provider Internal Medicine Hematology & Oncology; Visit Provider Internal Medicine Hematology & Oncology
DX: C50.411 Malignant neoplasm of upper-outer quadrant of right female breast; R06.02 Shortness of breath; Z13.820 Encounter for screening for osteoporosis; Z78.0 Asymptomatic menopausal state; Z17.0 Estrogen receptor positive status [ER+]; Z92.23 Personal history of estrogen therapy; Z87.311 Personal history of (healed) other pathological fracture; Z90.710 Acquired absence of both cervix and uterus
CPT/HCPCS: 77080

== ENCOUNTER → 2024-01-31 07:46 | Outpatient (CLI) | payer OTHER, SELFPAY ==
--- NOTE | 2024-01-31 07:46 | DI.ECHO.S_ITS ---
[place] [facility]+ [facility] : : [id number] : [place] : : [id number] : : Phone: [phone] Echocardiogram Report + + :Name: LUIS ANTONIO BOYLE Study Date: 01/31/2024 Height: 62 in : :[facility] ReadingLocation: Weight: 218 lb : : Gender: Female BSA: 2.0 m2 : :: 1940 Age: 83 yrs BP: 134/78 mmHg: :Reason For Study: PULMONARY HYPERTENSION : :Ordering Physician: ROBERT, : :LISBETH Frost Performed By: Keke Stevens : :Referring: LISBETH JONES W : + + Interpretation Summary The left ventricle is normal in size and wall thickness. Left ventricular systolic function is normal. The ejection fraction is estimated to be 65-70%. Previous LVEF 60 to 65%. The right ventricle is normal in size and function. There is mild to moderate mitral regurgitation. Previously moderate MR. There is mild aortic regurgitation. Compared to the prior echo study, there has been no change in the severity of aortic regurgitation. There is mild tricuspid regurgitation. Compared to the prior echo exam, there has been no change in TR severity. The right ventricular systolic pressure is estimated to be at least 42 mmHg based on an estimated right atrial pressure of 3 mm Hg. Previously 38 mmHg. Procedure: A two-dimensional transthoracic echocardiogram with color flow and Doppler was performed. The study quality was technically adequate. Comparison is made with the echocardiogram of 10/05/2021. The patient was in sinus rhythm with heart rates between 59-68 bpm during the exam. Left Ventricle: The left ventricle is normal in size and wall thickness. There is no thrombus. The ejection fraction is estimated to be 65-70%. Left ventricular systolic function is normal. There are no focal wall motion abnormalities. E/E' med: 11.7. Right Ventricle: The right ventricle is normal in size and function. Atria: The left atrium is severely dilated. There has been no significant change since the previous study. Right atrial size is normal. There is no Doppler evidence for an interatrial shunt. Mitral Valve: There is mild mitral annular calcification. The mitral valve leaflets appear mildly thickened, but open well. There is mild to moderate mitral regurgitation. Aortic Valve: The aortic valve is slightly calcified. The aortic valve opens well. There is mild aortic valve sclerosis. There is no aortic valve stenosis. There is mild aortic regurgitation. Compared to the prior echo study, there has been no change in the severity of aortic regurgitation. Tricuspid Valve: The tricuspid valve is normal. There is mild tricuspid regurgitation. Compared to the prior echo exam, there has been no change in TR severity. The right ventricular systolic pressure is estimated to be at least 42 mmHg based on an estimated right atrial pressure of 3 mm Hg. Pulmonic Valve: The pulmonic valve leaflets are thin and pliable; valve motion is normal. There is no pulmonic valvular regurgitation. Great Vessels: The aortic root is normal size. The dimensions of the ascending aorta are normal. The IVC is of normal diameter and collapses greater than 50% with a sniff. This suggests a low right atrial pressure of 3 mm Hg. Pericardium/ Pleura There is no pericardial effusion. There is an anterior echo-free space consistent with a fat pad. There is no pleural effusion. MMode/2D Measurements & Calculations LVIDd: 4.4 cm LVOT diam: 2.0 cm LVIDs: 3.0 cm Ao root diam: 2.5 cm FS: 31.1 % asc Aorta Diam: 3.0 cm IVSd: 0.79 cm Ao Arch Diam (Prox Trans): 2.2 cm LVPWd: 0.97 cm LV mejia. diameter/BSA (cm/m^2): 2.2 LV sys. diameter/BSA (cm/m^2): 1.5 LA A2 area: 25.6 cm2 RA long axis: 6.3 cm LA A4 area: 25.3 cm2 RA area: 20.5 cm2 LA length (vol): 6.4 cm RA vol: 56.7 ml LA vol: 85.3 ml RA : 28.6 ml/m2 LA vol index: 43.0 ml/m2 IVC diam: 1.2 cm RVD1 (basal): 3.2 cm RVD2 (mid): 2.4 cm TAPSE: 1.8 cm Doppler Measurements & Calculations Ao V2 max: 175.4 cm/sec LVOT Max Martir: 95.2 cm/sec Ao V2 mean: 127.4 cm/sec LV V1 max P.6 mmHg Ao max P.3 mmHg LV V1 VTI: 24.5 cm Ao mean P.1 mmHg ZELALEM(I,D): 1.7 cm2 Ao V2 VTI: 43.2 cm ZELALEM(V,D): 1.6 cm2 sev ratio: 0.57 ZELALEM indexed to BSA (cm^2/m^2): 0.87 MV E max martir: 84.7 cm/sec TR max martir: 312.4 cm/sec MV A max martir: 32.9 cm/sec TR max P.0 mmHg MV E/A: 2.6 PA V2 max: 103.1 cm/sec Med Peak E' Martir: 7.2 cm/sec PA V2 mean: 71.9 cm/sec E/E' med: 11.7 PA mean P.2 mmHg Lat Peak E' Martir: 9.7 cm/sec PA pr(Accel): 29.3 mmHg E/E' lat: 8.7 E/e' average: 10.2 MV dec time: 0.25 sec SV(LVOT): 74.4 ml Reading Physician:12:00 PM
== END ==
PROVIDERS: PCP Internal Medicine; Referring Provider Nurse Practitioner; Visit Provider Nurse Practitioner
DX: I08.3 Combined rheumatic disorders of mitral, aortic and tricuspid valves (principal); I27.22 Pulmonary hypertension due to left heart disease
CPT/HCPCS: 93306

== ENCOUNTER → 2024-02-10 09:48 | Outpatient (CLI) | payer OTHER, SELFPAY ==
[2024-02-10 11:10] LABS: Add Manual Diff / Slide Review NO; Basophils Absolute Auto 0 /uL (0-100); Basophils Percent Auto 0.4 % (0-2); Eosinophils Absolute Auto 200 /uL (0-450); Eosinophils Percent Auto 2.5 % (2-4); Hematocrit 33.6 % (36-46); Hemoglobin 11.6 g/dL (12.0-16.0); Lymphocytes Absolute Auto 1400 /uL (1100-4500); Lymphocytes Percent Auto 16.6 % (25-40); Mean Corpuscular HGB Conc 34.7 % (30-36); Mean Corpuscular Hemoglobin 32.2 PG (26-34); Mean Corpuscular Volume 92.9 fL (80-100); Monocytes Absolute Auto 600 /uL (0-900); Monocytes Percent Auto 6.6 % (3-14); Neutrophils Absolute Auto 6400 /uL (1500-7000); Neutrophils Percent Auto 73.9 % (50-75); Platelet Count 272 X10^3/uL (150-400); Red Blood Cell Count 3.62 X10^6/uL (4.0-5.2); Red Cell Distribution Width 13.8 % (11.6-14.8); White Blood Cell Count 8.7 X10^3/uL (4.5-11.0)
[2024-02-10 11:19] LABS: Alanine Aminotransferase 21 IU/L (<35); Albumin 4.3 g/dL (3.5-5.0); Albumin Globulin Ratio 1.4 (1.0-2.8); Alkaline Phosphatase 115 U/L (38-126); Aspartate Aminotransferase 25 IU/L (14-36); BUN Creatinine Ratio 13.2 (6-22); Bilirubin Total 0.5 mg/dL (0.2-1.3); Blood Urea Nitrogen 22 mg/dL (7-17); Calcium 9.2 mg/dL (8.4-10.2); Carbon Dioxide 29 mmol/L (22-32); Chloride 106 mmol/L (98-107); Estimated Glomerular Filt Rate 30 mL/min (>60); Globulin 3.1 g/dL (1.7-4.1); Glucose 113 mg/dL (80-110); HEMOLYSIS < 15 (0-50); Potassium 3.6 mmol/L (3.4-5.1); Sodium 142 mmol/L (137-145); Total Protein 7.4 g/dL (6.3-8.2)
[2024-02-10 11:43] LABS: Free T4, Direct Thyroxine 0.92 ng/dL (0.78-2.19)
== END ==
PROVIDERS: PCP Internal Medicine; Referring Provider Nurse Practitioner; Visit Provider Internal Medicine
DX: E55.9 Vitamin D deficiency, unspecified (principal); D64.9 Anemia, unspecified; R53.83 Other fatigue; I12.9 Hypertensive chronic kidney disease with stage 1 through stage 4 chronic kidney disease, or unspecified chronic kidney disease; N18.30 Chronic kidney disease, stage 3 unspecified; I27.20 Pulmonary hypertension, unspecified; E03.9 Hypothyroidism, unspecified
CPT/HCPCS: 80053; 82306; 84439; 84443; 85025

== ENCOUNTER → 2024-05-01 11:49 | Outpatient (CLI) | payer OTHER, SELFPAY ==
[2024-05-01 13:22] LABS: BUN Creatinine Ratio 16.8 (6-22); Blood Urea Nitrogen 20 mg/dL (7-17); Calcium 9.1 mg/dL (8.4-10.2); Carbon Dioxide 27 mmol/L (22-32); Chloride 103 mmol/L (98-107); Cholesterol 149 mg/dL (140-199); Estimated Glomerular Filt Rate 45 mL/min (>60); Glucose 95 mg/dL (80-110); HDL Cholesterol 74 mg/dL (40-60); HEMOLYSIS < 15 (0-50); LDL Cholesterol Calculated 58 mg/dL (<100); Potassium 3.7 mmol/L (3.4-5.1); Sodium 138 mmol/L (137-145); Triglycerides 83 mg/dL (35-150)
== END ==
LOC: LAB 11:50
PROVIDERS: PCP Internal Medicine; Referring Provider Internal Medicine Cardiovascular Disease; Visit Provider Internal Medicine Cardiovascular Disease
DX: I50.32 Chronic diastolic (congestive) heart failure (principal); E78.5 Hyperlipidemia, unspecified
CPT/HCPCS: 36415; 80048; 80061

== ENCOUNTER → 2024-08-10 09:49 | Outpatient (CLI) | payer OTHER, SELFPAY ==
[2024-08-10 10:33] LABS: Add Manual Diff / Slide Review NO; Basophils Absolute Auto 100 /uL (0-100); Basophils Percent Auto 0.8 % (0-2); Eosinophils Absolute Auto 400 /uL (0-450); Eosinophils Percent Auto 4.4 % (2-4); Hematocrit 35.3 % (36-46); Hemoglobin 11.8 g/dL (12.0-16.0); Lymphocytes Absolute Auto 1700 /uL (1100-4500); Lymphocytes Percent Auto 21.1 % (25-40); Mean Corpuscular HGB Conc 33.5 % (30-36); Mean Corpuscular Hemoglobin 31.5 PG (26-34); Mean Corpuscular Volume 93.9 fL (80-100); Monocytes Absolute Auto 700 /uL (0-900); Monocytes Percent Auto 8.2 % (3-14); Neutrophils Absolute Auto 5300 /uL (1500-7000); Neutrophils Percent Auto 65.5 % (50-75); Platelet Count 275 X10^3/uL (150-400); Red Blood Cell Count 3.76 X10^6/uL (4.0-5.2); White Blood Cell Count 8.2 X10^3/uL (4.5-11.0)
--- NOTE | 2024-08-10 10:37 | DI.RAD.S_ITS ---
PROCEDURE: XR ACUTE ABDOMEN SERIES INDICATIONS: abd bloating TECHNIQUE: One view chest and two views of the abdomen were acquired. COMPARISON: None. FINDINGS: Surgical changes and devices: Surgical clips project over the right chest. Chest: Lungs are clear. Heart size is normal. No pleural effusions. No pneumoperitoneum. Abdomen: Bowel gas pattern is normal. No suspicious calcifications. Visualized solid organ contours appear normal. Mild colonic stool. Bones: No suspicious bony lesions. Scoliotic curvature of the spine with multilevel degenerative changes. IMPRESSION: No acute abnormality. Approved by: Blane Cornell M.D. on 08/10/2024 at 16:42
[2024-08-10 11:04] LABS: Alanine Aminotransferase 23 IU/L (<35); Albumin 4.1 g/dL (3.5-5.0); Albumin Globulin Ratio 1.3 (1.0-2.8); Alkaline Phosphatase 130 U/L (38-126); Aspartate Aminotransferase 26 IU/L (14-36); BUN Creatinine Ratio 19.4 (6-22); Bilirubin Total 0.6 mg/dL (0.2-1.3); Blood Urea Nitrogen 25 mg/dL (7-17); Calcium 9.6 mg/dL (8.4-10.2); Carbon Dioxide 29 mmol/L (22-32); Chloride 104 mmol/L (98-107); Estimated Glomerular Filt Rate 40 mL/min (>60); Globulin 3.1 g/dL (1.7-4.1); Glucose 105 mg/dL (80-110); HEMOLYSIS < 15 (0-50); Potassium 4.2 mmol/L (3.4-5.1); Sodium 138 mmol/L (137-145); Total Protein 7.2 g/dL (6.3-8.2)
[2024-08-10 11:35] LABS: TSH w/ Reflex to FT4 1.62 uIU/mL (0.47-4.68)
== END ==
PROVIDERS: PCP Internal Medicine; Referring Provider Internal Medicine Hematology & Oncology; Visit Provider Internal Medicine Hematology & Oncology
DX: C50.411 Malignant neoplasm of upper-outer quadrant of right female breast (principal); I10 Essential (primary) hypertension; I27.20 Pulmonary hypertension, unspecified; I51.89 Other ill-defined heart diseases; Z17.0 Estrogen receptor positive status [ER+]
CPT/HCPCS: 36415; 74022; 80053; 84443; 85025

== ENCOUNTER → 2024-09-28 08:05 | Outpatient (CLI) | payer OTHER, SELFPAY ==
--- NOTE | 2024-09-28 08:07 | DI.MG.S_ITS ---
BILATERAL DIGITAL SCREENING MAMMOGRAM 3D/2D WITH CAD POST LUMPECTOMY: 09/28/2024 CLINICAL: Routine screening. Personal history of right breast cancer. Comparison is made to exams dated: 09/26/2023 mammogram, 09/24/2022 mammogram, and 09/20/2021 mammogram - [facility]. There are scattered areas of fibroglandular density (category b / 25%-50% glandular tissue). Current study was also evaluated with a Computer Aided Detection (CAD) system. There are stable benign calcifications in the left breast. There also are stable benign vascular calcifications in both breasts. Additionally, there are benign post operative findings in the right breast. No significant masses, calcifications, or other findings are seen in either breast. There has been no significant interval change. IMPRESSION: BENIGN There is no mammographic evidence of malignancy. A 1 year screening mammogram is recommended. This exam was interpreted at Station ID: [id number]. NOTE: For mammograms, a report in lay terms will be sent to the patient. Approximately 15% of breast malignancies will not be visualized mammographically. In the management of a palpable breast mass, a negative mammogram must not discourage biopsy of a clinically suspicious lesion. Electronically Signed By: Vicente toro/prudencio:09/28/2024 16:31:19 letter sent: Normal Exam ACR BI-RADS Category 2: Benign
== END ==
LOC: MAMMO 08:06
PROVIDERS: PCP Internal Medicine; Referring Provider Internal Medicine; Visit Provider Internal Medicine
DX: Z12.31 Encounter for screening mammogram for malignant neoplasm of breast (principal); Z85.3 Personal history of malignant neoplasm of breast
CPT/HCPCS: 77063; 77067

== ENCOUNTER → 2025-02-08 09:36 | Outpatient (CLI) | payer OTHER, SELFPAY ==
[2025-02-08 10:50] LABS: Add Manual Diff / Slide Review NO; Basophils Absolute Auto 100 /uL (0-100); Basophils Percent Auto 0.6 % (0-2); Eosinophils Absolute Auto 200 /uL (0-450); Eosinophils Percent Auto 2.3 % (2-4); Hemoglobin 12.5 g/dL (12.0-16.0); Lymphocytes Absolute Auto 1300 /uL (1100-4500); Lymphocytes Percent Auto 14.1 % (25-40); Mean Corpuscular HGB Conc 34.7 % (30-36); Mean Corpuscular Hemoglobin 32.5 PG (26-34); Mean Corpuscular Volume 93.7 fL (80-100); Monocytes Absolute Auto 600 /uL (0-900); Monocytes Percent Auto 6.2 % (3-14); Neutrophils Absolute Auto 7300 /uL (1500-7000); Neutrophils Percent Auto 76.8 % (50-75); Platelet Count 271 X10^3/uL (150-400); Red Blood Cell Count 3.84 X10^6/uL (4.0-5.2); Red Cell Distribution Width 14.4 % (11.6-14.8); White Blood Cell Count 9.5 X10^3/uL (4.5-11.0)
[2025-02-08 11:22] LABS: Alanine Aminotransferase 22 IU/L (<35); Albumin 4.5 g/dL (3.5-5.0); Albumin Globulin Ratio 1.7 (1.0-2.8); Alkaline Phosphatase 140 U/L (38-126); Aspartate Aminotransferase 26 IU/L (14-36); BUN Creatinine Ratio 18.9 (6-22); Bilirubin Total 0.7 mg/dL (0.2-1.3); Blood Urea Nitrogen 24 mg/dL (7-17); Calcium 9.5 mg/dL (8.4-10.2); Carbon Dioxide 25 mmol/L (22-32); Chloride 103 mmol/L (98-107); Estimated Glomerular Filt Rate 41 mL/min (>60); Globulin 2.7 g/dL (1.7-4.1); Glucose 92 mg/dL (70-99); HEMOLYSIS < 15 (0-50); Potassium 4.1 mmol/L (3.4-5.1); Sodium 140 mmol/L (137-145); Total Protein 7.2 g/dL (6.3-8.2)
== END ==
PROVIDERS: PCP Internal Medicine; Referring Provider Internal Medicine; Visit Provider Internal Medicine
DX: I11.0 Hypertensive heart disease with heart failure (principal); I50.32 Chronic diastolic (congestive) heart failure; N18.31 Chronic kidney disease, stage 3a; D64.9 Anemia, unspecified
CPT/HCPCS: 36415; 80053; 85025

== ENCOUNTER → 2025-06-15 13:32 | Outpatient (CLI) | payer OTHER, SELFPAY ==
[2025-06-15 14:54] LABS: Blood Urea Nitrogen 22 mg/dL (7-17); Calcium 9.5 mg/dL (8.4-10.2); Carbon Dioxide 26 mmol/L (22-32); Chloride 103 mmol/L (98-107); Estimated Glomerular Filt Rate 42 mL/min (>60); Glucose 96 mg/dL (70-99); HEMOLYSIS < 15 (0-50); Potassium 3.9 mmol/L (3.4-5.1); Sodium 140 mmol/L (137-145)
[2025-06-15 15:00] LABS: NT-proBNP (BNP-Adult 18+) 500 pg/mL (<450)
== END ==
PROVIDERS: PCP Internal Medicine; Referring Provider Internal Medicine Cardiovascular Disease; Visit Provider Internal Medicine Cardiovascular Disease
DX: R06.02 Shortness of breath (principal)
CPT/HCPCS: 36415; 80048; 83880

== ENCOUNTER → 2025-07-09 11:49 | Outpatient (CLI) | payer OTHER, SELFPAY | LOC: ECHO 11:49 | PROVIDERS: PCP Internal Medicine; Referring Provider Internal Medicine Cardiovascular Disease; Visit Provider Internal Medicine Cardiovascular Disease | DX: I08.3 Combined rheumatic disorders of mitral, aortic and tricuspid valves (principal); I50.32 Chronic diastolic (congestive) heart failure; R06.02 Shortness of breath | CPT/HCPCS: 78452; 93017; 93306; A9502; J2785 ==